=== PATIENT | female | born 1950 | race Caucasian/White ===

== ENCOUNTER 2017-10-13 12:06 | Inpatient (IN) ==
[2017-10-13] MEDS ORDERED: MethylPREDNISolone Sod Succinate Inj 125 MG/2 ML Vial IV.PUSH ONE (12:37)
--- NOTE | 2017-10-13 12:43 | ED ---
HPI General Chief Complaint: Respiratory Symptoms Stated Complaint: Fall Time Seen by Provider: 10/13/17 12:31 Source: patient and family Mode of arrival: ambulatory Limitations: no limitations History of Present Illness HPI Narrative: 67-year-old presents emergency department for evaluation of right -sided chest pain and shortness of breath that started after fall approximately 1 week ago. Patient denies any medical problems to include cardiac or pulmonary issues. She occasionally uses an inhaler for shortness of breath but has not used this medication regularly. Friend states that patient has had difficulty breathing for approximately 1 year but has had no COPD or other diagnosis. Patient says the chest pain is located in the right anterior chest that is nonradiating, worse with coughing and deep breaths, sharp and rated 10/10 with exacerbation. No palliative factors. She denies head, neck, back, leg, abdominal pain. Denies head trauma. Denies fevers or chills. She has a heavy tobacco use history. She drinks ETOH but unable to quantify. Related Data Home Medications Medication Instructions Recorded Confirmed No Known Home Medications 10/13/17 10/13/17 Allergies Allergy/AdvReac Type Severity Reaction Status Date / Time No Known Allergies Allergy Unverified 10/13/17 17:40 Review of Systems Except as stated in HPI: all other systems reviewed are negative Exam Narrative Exam Narrative: GENERAL: Well-developed well-nourished mild respiratory distress SKIN: Focused skin assessment warm/dry. HEAD: Atraumatic. Normocephalic. EYES: Pupils equal and round. No scleral icterus. No injection or drainage. ENT: No nasal bleeding or discharge. Mucous membranes pink and on the dry side , white patches on tongue. NECK: Trachea midline. No JVD. CARDIOVASCULAR: Regular rate and rhythm. No murmur appreciated. RESPIRATORY: Mild accessory muscle use. Diffuse rhonchi. Breath sounds equal bilaterally. GASTROINTESTINAL: Abdomen soft, non-tender, nondistended. Hepatic and splenic margins not palpable. MUSCULOSKELETAL: No obvious deformities. No clubbing. No cyanosis. No edema. TTP to right chest wall, 5-6cm ecchymosis to R midsternal chest wall with associated TTP. No flail segment noted. NEUROLOGICAL: Awake and alert. No obvious cranial nerve deficits. Motor grossly within normal limits. Normal speech. PSYCHIATRIC: Appropriate mood and affect; Course Initial Documented Vital Signs Temperature 98.2 F 10/13/17 12:14 Respiratory Rate 20 10/13/17 12:14 Blood Pressure 127/66 10/13/17 12:14 Pulse Oximetry 93 L 10/13/17 12:14 Last Documented Vital Signs Temperature 98.3 F 10/13/17 20:54 Pulse Rate 101 H 10/13/17 20:54 Respiratory Rate 19 10/13/17 20:54 Blood Pressure 111/57 L 10/13/17 20:54 Pulse Oximetry 97 10/13/17 20:54 Medical Decision Making MDM Narrative Medical decision making narrative: 67y female presents to the ED with right anterior chest pain and worsening shortness of breath for 1 week. Says she fell 1 week ago and has had increased SOB since then. Says her chest pain is located in the area that she fell. Pt is tachypneic and tachycardic at 102. EKG shows sinus tachycardia without STEMI changes. Duoneb x2 administered with subjective improvement in symptoms. Solumedrol 125mg IV. Morphine for her chest pain, monitored respiratory function closely. CT demonstrates old rib fractures but based off of H&P I suspect a more acute process from a fall week ago. Will treat for pneumonia, as suggested by CT. Rocephin and azithromycin. She remains on 2LPM NC while in the ED for Goal SaO2 95% I am unsure if her hyponatremia is chronic but suspect this is chronic based off the patient's alcohol history. Patient denies alcohol use today but smells of alcohol in the emergency department. I do not have previous records available but she denies chronic medical problems. I recommend patient be admitted for pneumonia with hypoxia, UTI, electrolyte abnormalities. Differential Diagnosis Differential Diagnosis: pneumonia, chest wall contusion, pulmonary contusion, COPD exacerbation Lab Data Result diagrams: 10/13/17 12:45 10/13/17 12:45 Lab Results 10/13/17 10/13/17 10/13/17 Range/Units 12:45 12:45 12:45 WBC 9.4 (4.0-11.0) th/mm3 RBC 4.05 (4.00-5.30) mil/mm3 Hgb 13.4 (11.6-15.3) gm/dL Hct 39.0 (35.0-46.0) % MCV 96.3 (80.0-100.0) fL MCH 33.0 (27.0-34.0) pg MCHC 34.3 (32.0-36.0) % RDW 15.6 (11.6-17.2) % Plt Count 471 H (150-450) th/mm3 MPV 6.8 L (7.0-11.0) fL Neut % (Auto) 66.8 (16.0-70.0) % Lymph % (Auto) 16.8 (9.0-44.0) % [place] % (Auto) 14.6 H (0.0-8.0) % Eos % (Auto) 1.1 (0.0-4.0) % Baso % (Auto) 0.7 (0.0-2.0) % Neut # (Auto) 6.3 (1.8-7.7) th/mm3 Lymph # (Auto) 1.6 (1.0-4.8) th/mm3 [place] # (Auto) 1.4 H (0.0-0.9) th/mm3 Eos # (Auto) 0.1 (0.0-0.4) th/mm3 Baso # (Auto) 0.1 (0.0-0.2) th/mm3 WBC Differential . Differential Comment Auto diff final PT 10.4 (9.8-11.6) sec INR 1.0 Ratio APTT 31.0 H (24.3-30.1) sec Sodium 126 L (136-145) meq/L Potassium 3.3 L (3.5-5.1) meq/L Chloride 85 L (98-107) meq/L Carbon Dioxide 30.6 (21.0-32.0) meq/L Anion Gap 10 (5-15) meq/L BUN 3 L (7-18) mg/dL Creatinine 0.57 (0.50-1.00) mg/dL Estimated GFR Greater than 89 (>89) mL/min Random Glucose 91 (74-106) mg/dL Lactic Acid (0.4-2.0) mmol/L Calcium 9.3 (8.5-10.1) mg/dL Magnesium 2.2 (1.5-2.5) mg/dL Total Bilirubin 0.5 (0.2-1.0) mg/dL AST 36 (15-37) U/L ALT 27 (10-53) U/L Alkaline Phosphatase 120 H (45-117) U/L Troponin I Less than 0.02 L (0.02-0.05) ng/mL Total Protein 7.1 (6.4-8.2) g/dL Albumin 2.6 L (3.4-5.0) g/dL Urine Color (Yellw/Straw) Urine Clarity (Clear) Urine pH (5.0-8.5) Ur Specific [place] (1.002-1.035) Urine Protein (Neg-Trace) mg/dL Urine Glucose (UA) (Negative) mg/dL Urine Ketones (Negative) mg/dL Urine Occult Blood (Negative) Urine Nitrate (Negative) Urine Bilirubin (Negative) Urine Urobilinogen (Less than 2) mg/dL Ur Leukocyte Esterase (Negative) Urine RBC (0-3) /hpf Urine WBC (0-5) /hpf Urine WBC Clumps (None) Ur Squamous Epith Cells (0-5) /hpf Urine Bacteria (None) /hpf Micro UA Comment Urine Culture Comments 10/13/17 10/13/17 Range/Units 13:15 14:26 WBC (4.0-11.0) th/mm3 RBC (4.00-5.30) mil/mm3 Hgb (11.6-15.3) gm/dL Hct (35.0-46.0) % MCV (80.0-100.0) fL MCH (27.0-34.0) pg MCHC (32.0-36.0) % RDW (11.6-17.2) % Plt Count (150-450) th/mm3 MPV (7.0-11.0) fL Neut % (Auto) (16.0-70.0) % Lymph % (Auto) (9.0-44.0) % [place] % (Auto) (0.0-8.0) % Eos % (Auto) (0.0-4.0) % Baso % (Auto) (0.0-2.0) % Neut # (Auto) (1.8-7.7) th/mm3 Lymph # (Auto) (1.0-4.8) th/mm3 [place] # (Auto) (0.0-0.9) th/mm3 Eos # (Auto) (0.0-0.4) th/mm3 Baso # (Auto) (0.0-0.2) th/mm3 WBC Differential Differential Comment PT (9.8-11.6) sec INR Ratio APTT (24.3-30.1) sec Sodium (136-145) meq/L Potassium (3.5-5.1) meq/L Chloride (98-107) meq/L Carbon Dioxide (21.0-32.0) meq/L Anion Gap (5-15) meq/L BUN (7-18) mg/dL Creatinine (0.50-1.00) mg/dL Estimated GFR (>89) mL/min Random Glucose (74-106) mg/dL Lactic Acid 1.3 (0.4-2.0) mmol/L Calcium (8.5-10.1) mg/dL Magnesium (1.5-2.5) mg/dL Total Bilirubin (0.2-1.0) mg/dL AST (15-37) U/L ALT (10-53) U/L Alkaline Phosphatase (45-117) U/L Troponin I (0.02-0.05) ng/mL Total Protein (6.4-8.2) g/dL Albumin (3.4-5.0) g/dL Urine Color Yellow (Yellw/Straw) Urine Clarity Hazy H (Clear) Urine pH 6.0 (5.0-8.5) Ur Specific [place] 1.003 (1.002-1.035) Urine Protein Negative (Neg-Trace) mg/dL Urine Glucose (UA) Negative (Negative) mg/dL Urine Ketones Negative (Negative) mg/dL Urine Occult Blood Negative (Negative) Urine Nitrate Negative (Negative) Urine Bilirubin Negative (Negative) Urine Urobilinogen 2.0 H (Less than 2) mg/dL Ur Leukocyte Esterase Moderate H (Negative) Urine RBC 2 (0-3) /hpf Urine WBC 11 H (0-5) /hpf Urine WBC Clumps Few H (None) Ur Squamous Epith Cells 2 (0-5) /hpf Urine Bacteria Occasional H (None) /hpf Micro UA Comment Culture indicated Urine Culture Comments Culture indicated Imaging Data Radiologist's impression: Chest X-Ray 10/13/17 12:37 CONCLUSION: 1. Minimal, asymmetric interstitial prominence in the right chest could represent some asymmetric vascular congestion or volume overload. 2. No confluent infiltrate, pneumothorax or effusion. Chest CT 10/13/17 13:43 CONCLUSION: Parenchymal infiltrates mainly in the right lung probably inflammatory and possibility of atypical pneumonia should be entertained. ECG Data Interpretation: EKG Rate 106, regular, no STEMI changes. No previous EKGs for comparison that I can find in the chart. Discharge Plan Discharge Disposition Patient Disposition: 30 Still Patient Discharge Condition Condition: Stable Discharge Details Diagnosis: Pneumonia, Chest wall contusion, Acute UTI, Fracture of rib, Hypoxia Physicians Team ED Provider: Ilia Mueller ED Midlevel Provider: Dianna Chavez Primary Care Provider: Primary Care Jemma Mota Attending Provider: Luz Pacheco Status ED Status: Left Department Discharge Information Discharge Date/Time: 10/13/17 19:48 [facility] Medical History Medical History Breathing problem (Acute) HTN (hypertension) (Acute) High cholesterol (Acute) Surgical History Surgical History H/O tubal ligation (Acute) Social History Social History Substance History: No History of Abuse Second Hand Smoke Exposure: Yes Smoking Status: Current every day smoker Tobacco Type: Cigarettes How Often Do You Have a Drink Containing Alcohol: Monthly or less Recent Travel in [facility] within the Last 8 Weeks: No Recent Out of Country Travel within the Last 8 Weeks: No
[2017-10-13 13:19] LABS: Baso # (Auto) 0.1 th/mm3 (0.0-0.2); Baso % (Auto) 0.7 % (0.0-2.0); Eos # (Auto) 0.1 th/mm3 (0.0-0.4); Eos % (Auto) 1.1 % (0.0-4.0); Hemoglobin 13.4 gm/dL (11.6-15.3); Lymph # (Auto) 1.6 th/mm3 (1.0-4.8); Lymph % (Auto) 16.8 % (9.0-44.0); Mean Corpuscular HGB Conc 34.3 % (32.0-36.0); Mean Corpuscular Volume 96.3 fL (80.0-100.0); Mean Platelet Volume 6.8 fL (7.0-11.0); Mono # (Auto) 1.4 th/mm3 (0.0-0.9); Mono % (Auto) 14.6 % (0.0-8.0); Neut # (Auto) 6.3 th/mm3 (1.8-7.7); Neut % (Auto) 66.8 % (16.0-70.0); Platelet Count 471 th/mm3 (150-450); Red Blood Count 4.05 mil/mm3 (4.00-5.30); Red Cell Distribution Width 15.6 % (11.6-17.2); White Blood Count 9.4 th/mm3 (4.0-11.0)
[2017-10-13 13:26] LABS: Prothrombin Time 10.4 sec (9.8-11.6)
--- NOTE | 2017-10-13 13:28 | XR ---
EXAM DATE: 10/13/2017 1:11 PM EDT AGE/SEX: 67 years / Female INDICATIONS: Right anterior chest pain from fall and shortness of breath. CLINICAL DATA: This is the patient's initial encounter. Patient reports that signs and symptoms have been present for 1 day and indicates a pain score of 5/10. MEDICAL/SURGICAL HISTORY: Hypertension. None. COMPARISON: No prior exams available for comparison. FINDINGS: A single AP view of the chest demonstrates the lungs to be symmetrically aerated with some mild, asym metric interstitial prominence in the right chest. Otherwise, no confluent infiltrate. Heart size is normal. Osseous structures are intact CONCLUSION: 1. Minimal, asymmetric interstitial prominence in the right chest could represent some asymmetric va scular congestion or volume overload. 2. No confluent infiltrate, pneumothorax or effusion. Electronically signed by: Hayden Aguirre MD 10/13/2017 1:27 PM EDT
[2017-10-13] MEDS ORDERED: Morphine Sulfate Inj 2 MG/ML Vial IV.PUSH ONE (13:37)
[2017-10-13 13:39] LABS: Bacteria,Urine Occasional /hpf; Bilirubin,Urine Negative (Negative); Clarity,Urine Hazy (Clear); Color,Urine Yellow (Yellw/Straw); Glucose,Urine (UA) Negative (Negative); Leukocyte Esterase,Urine Moderate (Negative); Nitrite,Urine Negative (Negative); Specific Gravity,Urine 1.003 (1.002-1.035); Squamous Epithelial Cell,Urine 2 /hpf (0-5)
[2017-10-13 13:39] LABS: Alanine Aminotransferase 27 U/L (10-53); Albumin 2.6 g/dL (3.4-5.0); Anion Gap 10 meq/L (5-15); Aspartate Aminotransferase 36 U/L (15-37); Blood Urea Nitrogen 3 mg/dL (7-18); Calcium 9.3 mg/dL (8.5-10.1); Carbon Dioxide 30.6 meq/L (21.0-32.0); Chloride 85 meq/L (98-107); Glomerular Filtration Rate Greater Than 89 mL/min (>89); Glucose,Random 91 mg/dL (74-106); Magnesium 2.2 mg/dL (1.5-2.5); Potassium 3.3 meq/L (3.5-5.1); Sodium 126 meq/L (136-145)
[2017-10-13 13:43] LABS: Alkaline Phosphatase 120 U/L (45-117); Total Protein 7.1 g/dL (6.4-8.2)
--- NOTE | 2017-10-13 16:01 | CT ---
EXAM DATE: 10/13/2017 3:17 PM EDT AGE/SEX: 67 years / Female INDICATIONS: Short of breath, pain when coughing. CLINICAL DATA: This is the patient's initial encounter. Patient reports that signs and symptoms have been present for 1 week and indicates a pain score of 4/10. MEDICAL/SURGICAL HISTORY: Hypertension. Tubal ligation. RADIATION DOSE: 6.22 CTDI (mGy) COMPARISON: No prior exams available for comparison. TECHNIQUE: Multiple contiguous axial images were obtained through the chest during bolus infusion of 70 ml Omnipaque 350 (iohexol) nonionic water-soluble contrast as a single exam dose. Images were obtained in suspended respiration using multiple row detector helical technique. Using automated exp osure control and adjustment of the mA and/or kV according to patient size, radiation dose was kept a s low as reasonably achievable to obtain optimal diagnostic quality images. DICOM format image data is available electronically for review and comparison. FINDINGS: Patchy parenchymal infiltrates are present in the right upper lobe, right middle lobe and parts of th e right lower lobe with minimal infiltrate in left upper lobe. Findings are most likely inflammatory. Focal consolidation however is not seen. There is no pleural effusion. No appreciable pathological adenopathy is seen within the mediastinum. There are small benign-appearing lymph nodes within the me diastinum. There are old fractures of the right anterior third, fourth and fifth ribs. Coronary arter y calcifications are seen typically seen with coronary artery disease and clinical correlation and ev aluation is suggested. Almost 8mm calcification is present involving the posterior portion of the noe er probably a granuloma. CONCLUSION: Parenchymal infiltrates mainly in the right lung probably inflammatory and possibility o f atypical pneumonia should be entertained. Electronically signed by: Andrea Gamble MD 10/13/2017 4:00 PM EDT
[2017-10-13] MEDS ORDERED: Azithromycin Inj 500 MG in Sodium Chlor 0.9% Inj 250 ML IV.SIG ONE (16:08)
[2017-10-13] MEDS ORDERED: Temazepam 15 MG Capsule PO PRN (18:02)
[2017-10-13] MEDS ORDERED: Acetaminophen 325 MG Tablet PO PRN (18:02)
[2017-10-13] MEDS ORDERED: Bisacodyl 10 MG Supp RECTAL PRN (18:02)
--- NOTE | 2017-10-13 19:07 | P.HPIM ---
History of Present Illness Primary Care Physician: No Primary Care Physician History of Present Illness: This is a 67-year-old female with a PMH of HTN and Hyperlipidemia who presented to ER with complaints of SOB x1 wk. States symptoms starting shortly after a fall, denies head trauma or LOC. No chest pain, fever or chills, but reports non-productive wet cough. On arrival, BP 133/99, HR 103, O2 sat 91% on 2L NC, Afebrile. CBC essentially unremarkable. Na 126, K+ 3.3. Lactic Acid normal. Troponin negative. INR 1.1. UA positive for UTI. CXR with asymmetrical interstitial prominence right chest possibly congestion or overload. CT Chest with parenchymal infiltrates right lung probably inflammatory or atypical pneumonia. S/p Rocephin/Zithro in ER - Diagnosis (1) Fall (2) Hyponatremia (3) UTI (urinary tract infection) (4) PNA (pneumonia) (5) SIRS (systemic inflammatory response syndrome) Inpatient Certification: I certify that the inpatient services were ordered in accordance with Medicare regulations governing the order. This includes certification that hospital inpatient services are reasonable and necessary and in the case of services not specified as inpatient-only under 42 CFR 419.22(n), that they are appropriately provided as inpatient services in accordance to with the 2-midnight benchmark under 43 CFR 412.3(e) Estimated Total Length of Stay (Days): 2 Plans for Post Hospital Care: Not yet determined Review of Systems All other systems reviewed negative except as stated in HPI PMFSH - History History Provided By: Patient, Family Member - Medical History Medical History: Medical History (Last Updated 10/13/17 @ 13:01 by [employer]) Breathing problem HTN (hypertension) High cholesterol - Surgical History Surgical History: Surgical History (Last Updated 10/13/17 @ 13:01 by [employer]) H/O tubal ligation - Tobacco History Second Hand Smoke Exposure: Yes Tobacco Use In Past 30 Days: Yes Smoking Status: Current every day smoker Tobacco Type: Cigarettes - Alcohol History How Often Do You Have a Drink Containing Alcohol: Monthly or less - Substance Use History Substance History: No History of Abuse - Travel History Recent Travel in the [place] Within the Last 8 Weeks: No Recent Travel Out of the Country Within the Last 8 Weeks: No - Immunization History Tetanus Immunization: Never Vaccinated Hx Influenza Vaccine This Season: No Medications and Allergies Active Medications: Active Medications Acetaminophen (Tylenol) 650 mg PO Q4H PRN PRN Reason: Temp > 100.4 Al Hydroxide/Mg Hydroxide (Milk Of Magnesia Liq) 30 ml PO Q12H PRN PRN Reason: Mild Constipation Albuterol (Duoneb Neb (Prn)) 1 ampul NEB Q15M PRN PRN Reason: SHORTNESS OF BREATH Albuterol (Duoneb Neb (Prn)) 1 ampul NEB Q4HR NEB PRN PRN Reason: SOB/WHEEZING Bisacodyl (Dulcolax Supp) 10 mg RECTAL DAILY PRN PRN Reason: SEVERE CONSITIPATION Enoxaparin Sodium (Lovenox Inj) 30 mg SQ Q24H NIR Sodium Chloride (Ns Inj) 1,000 mls @ 100 mls/hr IV.CONT .Q10H NIR Stop: 10/14/17 14:14 Azithromycin 500 mg/ Sodium (Chloride) 250 mls @ 250 mls/hr IV.SIG Q24H NIR Ceftriaxone Sodium 1,000 mg/ (Sodium Chloride) 100 mls @ 200 mls/hr IV.SIG Q24H NIR Lactulose (Lactulose Liq) 30 ml PO DAILY PRN PRN Reason: SEVERE CONSITIPATION Potassium Bicarb/Potassium Chloride (K-Lyte Cl Eff) 50 meq PO ONCE ONE Stop: 10/13/17 18:02 Sennosides (Senokot) 17.2 mg PO Q12H PRN PRN Reason: Moderate Constipation Temazepam (Restoril) 15 mg PO HS PRN PRN Reason: INSOMNIA Allergies Allergy/AdvReac Type Severity Reaction Status Date / Time No Known Allergies Allergy Unverified 10/13/17 17:40 Home Medications Medication Instructions Recorded Confirmed Type No Known Home Medications 10/13/17 10/13/17 History Exam Vital signs: Vital Signs 10/13/17 12:14 10/13/17 12:42 10/13/17 13:00 Temperature 98.2 F Pulse Rate 103 H 108 H Respiratory Rate 20 19 29 H Blood Pressure 127/66 133/99 H 149/80 H Pulse Oximetry 93 L 92 L 95 10/13/17 13:37 10/13/17 14:00 10/13/17 14:36 Temperature Pulse Rate 109 H Respiratory Rate 20 Blood Pressure 144/76 H Pulse Oximetry 97 95 10/13/17 14:55 07/20/18 15:00 10/13/17 16:00 Temperature Pulse Rate 117 H 102 H 120 H Respiratory Rate 28 H 29 H 28 H Blood Pressure 144/74 H 138/72 Pulse Oximetry 93 L 95 10/13/17 16:16 Temperature Pulse Rate Respiratory Rate 18 Blood Pressure Pulse Oximetry Intake & Output 10/13/17 10/13/17 10/14/17 06:59 18:59 06:59 Weight 84.822 kg Narrative: PE: GENERAL: Middle-aged white female in no acute distress. Intermittent cough. HEENT: PERRLA, EOMI. No scleral icterus or conjunctival pallor. No lid lag or facial droop. CARDIOVASCULAR: Regular rate and rhythm. No obvious murmurs to auscultation. No chest tenderness to palpation. RESPIRATORY: No obvious rhonchi or wheezing. Clear to auscultation. Breath sounds equal bilaterally. GASTROINTESTINAL: Abdomen soft, non-tender, nondistended. BS normal. MUSCULOSKELETAL: Extremities without clubbing, cyanosis, or edema. No obvious deformities. NEUROLOGICAL: Awake, alert and oriented x4. No focal neurologic deficits. Moving both upper and lower extremities spontaneously. Results - Labs CBC & Chem 7: 10/13/17 12:45 10/13/17 12:45 Labs: Short CBC 10/13/17 Range/Units 12:45 WBC 9.4 (4.0-11.0) th/mm3 Hgb 13.4 (11.6-15.3) gm/dL Hct 39.0 (35.0-46.0) % Plt Count 471 H (150-450) th/mm3 BMP 10/13/17 12:45 Sodium 126 L Potassium 3.3 L Chloride 85 L Carbon Dioxide 30.6 BUN 3 L Creatinine 0.57 Calcium 9.3 Cardiac Enzymes 10/13/17 Range/Units 12:45 Troponin I Less than 0.02 L (0.02-0.05) ng/mL Liver Function 10/13/17 Range/Units 12:45 Total Bilirubin 0.5 (0.2-1.0) mg/dL AST 36 (15-37) U/L ALT 27 (10-53) U/L Alkaline Phosphatase 120 H (45-117) U/L Albumin 2.6 L (3.4-5.0) g/dL Urine 10/13/17 Range/Units 13:15 Urine Color Yellow (Yellw/Straw) Urine Clarity Hazy H (Clear) Urine pH 6.0 (5.0-8.5) Ur Specific [place] 1.003 (1.002-1.035) Urine Protein Negative (Neg-Trace) mg/dL Urine Glucose (UA) Negative (Negative) mg/dL - Imaging Impressions Chest X-Ray 10/13/17 12:37 CONCLUSION: 1. Minimal, asymmetric interstitial prominence in the right chest could represent some asymmetric vascular congestion or volume overload. 2. No confluent infiltrate, pneumothorax or effusion. Chest CT 10/13/17 13:43 CONCLUSION: Parenchymal infiltrates mainly in the right lung probably inflammatory and possibility of atypical pneumonia should be entertained. Caprini VTE Risk Assessment Caprini VTE Risk Assessment: No/Low Risk (score <= 1) Caprini Risk Assessment Model: Point Value = 1 Point Value = 2 Point Value = 3 Point Value = 5 Age 41-60 Minor surgery BMI > 25 kg/m2 Swollen legs Varicose veins or History of unexplained or recurrent spontaneous Oral contraceptives or hormone replacement Sepsis (< 1 month) Serious lung disease, including pneumonia (< 1 month) Abnormal pulmonary function Acute myocardial infarction Congestive heart failure (< 1 month) History of inflammatory bowel disease Medical patient at bed rest Age 61-74 Arthroscopic surgery Major open surgery (> 45 min) Laparoscopic surgery (> 45 min) Malignancy Confined to bed (> 72 hours) Immobilizing plaster cast Central venous access Age >= 75 History of VTE Family history of VTE Factor V Leiden Prothrombin [id number] Lupus anticoagulant Anticardiolipin antibodies Elevated serum homocysteine Heparin-induced thrombocytopenia Other congenital or acquired thrombophilia Stroke (< 1 month) Elective arthroplasty Hip, pelvis, or leg fracture Acute spinal cord injury (< 1 month) Prophylaxis Regimen: Total Risk Factor Score Risk Level Prophylaxis Regimen 0-1 Low Early ambulation 2 Moderate Order ONE of the following: *Sequential Compression Device (SCD) *Heparin 5000 units SQ BID 3-4 Higher Order ONE of the following medications: *Heparin 5000 units SQ TID *Enoxaparin/Lovenox 40 mg SQ daily (WT < 150 kg, CrCl > 30 mL/min) *Enoxaparin/Lovenox 30 mg SQ daily (WT < 150 kg, CrCl > 10-29 mL/min) *Enoxaparin/Lovenox 30 mg SQ BID (WT < 150 kg, CrCl > 30 mL/min) AND/OR *Sequential Compression Device (SCD) 5 or more Highest Order ONE of the following medications: *Heparin 5000 units SQ TID (Preferred with Epidurals) *Enoxaparin/Lovenox 40 mg SQ daily (WT < 150 kg, CrCl > 30 mL/min) *Enoxaparin/Lovenox 30 mg SQ daily (WT < 150 kg, CrCl > 10-29 mL/min) *Enoxaparin/Lovenox 30 mg SQ BID (WT < 150 kg, CrCl > 30 mL/min) AND *Sequential Compression Device (SCD) Assessment and Plan - Assessment (1) Fall Code(s): W19.XXXA - Unspecified fall, initial encounter Status: Acute (2) Hyponatremia Code(s): E87.1 - Hypo-osmolality and hyponatremia Status: Acute (3) UTI (urinary tract infection) Code(s): N39.0 - Urinary tract infection, site not specified Status: Acute (4) PNA (pneumonia) Code(s): J18.9 - Pneumonia, unspecified organism Status: Acute (5) SIRS (systemic inflammatory response syndrome) Code(s): R65.10 - Systemic inflammatory response syndrome (SIRS) of non- infectious origin without acute organ dysfunction Status: Acute - Plan A/P: 1. Fall: s/p mechanical fall 1wk ago, no head trauma or LOC reported, CT Chest w/ old right 3rd, 4th and 5th ribs fractures, no acute injury, images reviewed. PT for eval/tx, Case Management for possible placement. 2. PNA: CT Chest w/ parenchymal infiltrates right lung, s/p Rocephin/Zithro in ER, continue w/ IV Abx, DuoNeb prn, Mucinex. 3. UTI: U/a w/ UTI, follow up cultures, continue IV Abx, IVF for hydration, monitor I/O. 4. SIRS: HR 110's, RR 28, Source-UTI/PNA, follow up cultures as above, continue w/ IV Abx, telemetry. 5. Hyponatremia: Na 126, likely secondary to SIRS/dehydration/acute infection , IVF, monitor I/O, repeat labs in am. 6. DVT Prophylaxis: SCD/Teds 7. Social work for d/c planning as needed 8. Case discussed w/ day physician, labs/records/imaging reviewed by me.
[2017-10-13] MEDS: Sod Chloride 0.9% Inj 1,000 ML IV.CONT SCH (19:40)
[2017-10-13] MEDS ORDERED: Potassium Chloride 25 MEQ Effervescent Tablet PO ONE (20:00)
[2017-10-13] MEDS: Enoxaparin Inj 30 MG/0.3 ML Syringe SQ SCH (22:06)
[2017-10-13] MEDS: guaiFENesin 600 MG ER Tablet PO SCH (22:06)
[2017-10-14] MEDS: Morphine Inj 4 MG/ML Vial IV.PUSH PRN ×2 (01:25→20:20)
[2017-10-14] MEDS: guaiFENesin/Codeine Syrup 200 MG/20 MG 10 ML UDC PO PRN ×4 (04:03→21:33)
[2017-10-14] MEDS: Sod Chloride 0.9% Inj 1,000 ML IV.CONT SCH (07:48)
[2017-10-14 07:58] LABS: Baso % (Auto) 0.2 % (0.0-2.0); Hematocrit 34.6 % (35.0-46.0); Hemoglobin 11.7 gm/dL (11.6-15.3); Lymph # (Auto) 0.5 th/mm3 (1.0-4.8); Lymph % (Auto) 7.1 % (9.0-44.0); Mean Corpuscular HGB Conc 33.7 % (32.0-36.0); Mean Corpuscular Hemoglobin 32.4 pg (27.0-34.0); Mean Corpuscular Volume 96.1 fL (80.0-100.0); Mono # (Auto) 0.5 th/mm3 (0.0-0.9); Mono % (Auto) 7.8 % (0.0-8.0); Neut # (Auto) 5.5 th/mm3 (1.8-7.7); Neut % (Auto) 84.9 % (16.0-70.0); Platelet Count 447 th/mm3 (150-450); Red Cell Distribution Width 15.3 % (11.6-17.2); White Blood Count 6.5 th/mm3 (4.0-11.0)
[2017-10-14 08:27] LABS: Anion Gap 8 meq/L (5-15); Blood Urea Nitrogen 9 mg/dL (7-18); Calcium 8.7 mg/dL (8.5-10.1); Carbon Dioxide 29.8 meq/L (21.0-32.0); Chloride 95 meq/L (98-107); Glomerular Filtration Rate Greater Than 89 mL/min (>89); Glucose,Random 185 mg/dL (74-106); Potassium 4.3 meq/L (3.5-5.1); Sodium 133 meq/L (136-145)
[2017-10-14] MEDS: guaiFENesin 600 MG ER Tablet PO SCH ×2 (08:31→20:22)
--- NOTE | 2017-10-14 12:34 | P.PNIM ---
Subjective Interval history: This is a 67-year-old female with a PMH of HTN and Hyperlipidemia who presented to ER with complaints of SOB x1 wk. States symptoms starting shortly after a fall, denies head trauma or LOC. No chest pain, fever or chills, but reports non-productive wet cough. On arrival, BP 133/99, HR 103, O2 sat 91% on 2L NC, Afebrile. CBC essentially unremarkable. Na 126, K+ 3.3. Lactic Acid normal. Troponin negative. INR 1.1. UA positive for UTI. CXR with asymmetrical interstitial prominence right chest possibly congestion or overload. CT Chest with parenchymal infiltrates right lung probably inflammatory or atypical pneumonia. S/p Rocephin/Zithro in ER 7- PATIENT STATES SHE STILL HAS PAIN ON THE RIGHT TAKING PAIN MEDS AND MEDS FOR COUGH SUPPRESSANT NEEDS IS AND MUCINEX DW RN AND PT AND CM AM LABS Physical Exam Vital signs: Vital Signs 10/13/17 12:42 10/13/17 13:00 10/13/17 13:37 Temperature Pulse Rate 103 H 108 H Respiratory Rate 19 29 H Blood Pressure 133/99 H 149/80 H Pulse Oximetry 92 L 95 97 10/13/17 14:00 10/13/17 14:36 10/13/17 14:55 Temperature Pulse Rate 109 H 117 H Respiratory Rate 20 28 H Blood Pressure 144/76 H Pulse Oximetry 95 10/13/17 15:00 10/13/17 16:00 10/13/17 16:16 Temperature Pulse Rate 102 H 120 H Respiratory Rate 29 H 28 H 18 Blood Pressure 144/74 H 138/72 Pulse Oximetry 93 L 95 10/13/17 19:15 10/13/17 20:15 10/13/17 20:54 Temperature 98.3 F Pulse Rate 105 H 101 H Respiratory Rate 20 22 19 Blood Pressure 132/76 111/57 L Pulse Oximetry 96 97 10/14/17 00:00 10/14/17 02:23 10/14/17 02:24 Temperature 97.2 F L Pulse Rate 90 108 H Respiratory Rate 19 22 Blood Pressure 136/65 Pulse Oximetry 91 L 97 10/14/17 03:00 10/14/17 08:00 Temperature 97.7 F 97.5 F L Pulse Rate 95 H 88 Respiratory Rate 19 17 Blood Pressure 126/75 111/58 L Pulse Oximetry 92 L 96 Intake & Output 10/13/17 10/14/17 10/14/17 18:59 06:59 18:59 Intake Total 1480 / 1480 Balance 1480 / 1480 Weight 84.822 kg 62.14 kg Intake: IV 1000 / 1000 NS Inj 1,000 ML @ 100 mls/hr IV 1000 / 1000 .CONT .Q10H NIR Rx#:[id number] Oral 480 / 480 Other: # Voids 6 Date of Last Bowel Movement 10/13/17 # Bowel Movements 2 Weight On Admission 62.142 kg Narrative: Talkative and cooperative GENERAL: Middle-aged white female in no acute distress. Intermittent cough. HEENT: PERRLA, EOMI. No scleral icterus or conjunctival pallor. No lid lag or facial droop. Tongue is midline Neck is supple there is no JVD or thyromegaly CARDIOVASCULAR: Regular rate and rhythm. No obvious murmurs to auscultation. No chest tenderness to palpation. S1-S2 no S3 or S4 RESPIRATORY: No obvious rhonchi or wheezing. Clear to auscultation. Breath sounds equal bilaterally. GASTROINTESTINAL: Abdomen soft, non-tender, nondistended. BS normal. Obese MUSCULOSKELETAL: Extremities without clubbing, cyanosis, or edema. No obvious deformities. NEUROLOGICAL: Awake, alert and oriented x4. No focal neurologic deficits. Moving both upper and lower extremities spontaneously. Results - Labs CBC & Chem 7: 10/14/17 07:10 10/14/17 07:10 Laboratory Results - last 24 hr 10/13/17 10/13/17 10/13/17 12:45 12:45 12:45 WBC 9.4 RBC 4.05 Hgb 13.4 Hct 39.0 MCV 96.3 MCH 33.0 MCHC 34.3 RDW 15.6 Plt Count 471 H MPV 6.8 L Neut % (Auto) 66.8 Lymph % (Auto) 16.8 [place] % (Auto) 14.6 H Eos % (Auto) 1.1 Baso % (Auto) 0.7 Neut # (Auto) 6.3 Lymph # (Auto) 1.6 [place] # (Auto) 1.4 H Eos # (Auto) 0.1 Baso # (Auto) 0.1 WBC Differential . Differential Comment Auto diff final PT 10.4 INR 1.0 APTT 31.0 H Sodium 126 L Potassium 3.3 L Chloride 85 L Carbon Dioxide 30.6 Anion Gap 10 BUN 3 L Creatinine 0.57 Estimated GFR Greater than 89 Random Glucose 91 Lactic Acid Calcium 9.3 Magnesium 2.2 Total Bilirubin 0.5 AST 36 ALT 27 Alkaline Phosphatase 120 H Troponin I Less than 0.02 L Total Protein 7.1 Albumin 2.6 L Urine Color Urine Clarity Urine pH Ur Specific [place] Urine Protein Urine Glucose (UA) Urine Ketones Urine Occult Blood Urine Nitrate Urine Bilirubin Urine Urobilinogen Ur Leukocyte Esterase Urine RBC Urine WBC Urine WBC Clumps Ur Squamous Epith Cells Urine Bacteria Micro UA Comment Urine Culture Comments Stl C.difficile Tox PCR St C. diff Tox Epid 027 10/13/17 10/13/17 10/13/17 13:15 14:26 23:30 WBC RBC Hgb Hct MCV MCH MCHC RDW Plt Count MPV Neut % (Auto) Lymph % (Auto) [place] % (Auto) Eos % (Auto) Baso % (Auto) Neut # (Auto) Lymph # (Auto) [place] # (Auto) Eos # (Auto) Baso # (Auto) WBC Differential Differential Comment PT INR APTT Sodium Potassium Chloride Carbon Dioxide Anion Gap BUN Creatinine Estimated GFR Random Glucose Lactic Acid 1.3 Calcium Magnesium Total Bilirubin AST ALT Alkaline Phosphatase Troponin I Total Protein Albumin Urine Color Yellow Urine Clarity Hazy H Urine pH 6.0 Ur Specific [place] 1.003 Urine Protein Negative Urine Glucose (UA) Negative Urine Ketones Negative Urine Occult Blood Negative Urine Nitrate Negative Urine Bilirubin Negative Urine Urobilinogen 2.0 H Ur Leukocyte Esterase Moderate H Urine RBC 2 Urine WBC 11 H Urine WBC Clumps Few H Ur Squamous Epith Cells 2 Urine Bacteria Occasional H Micro UA Comment Culture indicated Urine Culture Comments Culture indicated Stl C.difficile Tox PCR Negative St C. diff Tox Epid 027 Negative 10/14/17 10/14/17 07:10 07:10 WBC 6.5 RBC 3.60 L Hgb 11.7 Hct 34.6 L MCV 96.1 MCH 32.4 MCHC 33.7 RDW 15.3 Plt Count 447 MPV 7.0 Neut % (Auto) 84.9 H Lymph % (Auto) 7.1 L [place] % (Auto) 7.8 Eos % (Auto) 0.0 Baso % (Auto) 0.2 Neut # (Auto) 5.5 Lymph # (Auto) 0.5 L [place] # (Auto) 0.5 Eos # (Auto) 0.0 Baso # (Auto) 0.0 WBC Differential . Differential Comment Auto diff final PT INR APTT Sodium 133 L Potassium 4.3 D Chloride 95 L D Carbon Dioxide 29.8 Anion Gap 8 BUN 9 Creatinine 0.53 Estimated GFR Greater than 89 Random Glucose 185 H Lactic Acid Calcium 8.7 Magnesium Total Bilirubin AST ALT Alkaline Phosphatase Troponin I Total Protein Albumin Urine Color Urine Clarity Urine pH Ur Specific [place] Urine Protein Urine Glucose (UA) Urine Ketones Urine Occult Blood Urine Nitrate Urine Bilirubin Urine Urobilinogen Ur Leukocyte Esterase Urine RBC Urine WBC Urine WBC Clumps Ur Squamous Epith Cells Urine Bacteria Micro UA Comment Urine Culture Comments Stl C.difficile Tox PCR St C. diff Tox Epid 027 Microbiology 10/13/17 13:04 Blood - Peripheral Aerobic Blood Culture - Preliminary No growth in 1 day 10/13/17 13:04 Blood - Peripheral Anaerobic Blood Culture - Preliminary No growth in 1 day 10/13/17 13:05 Blood - Peripheral Aerobic Blood Culture - Preliminary No growth in 1 day 10/13/17 13:05 Blood - Peripheral Anaerobic Blood Culture - Final QNS - See aerobic report. 10/13/17 13:15 Clean Catch Urine Urine Culture - Preliminary gram negative rods - Imaging Impressions Chest X-Ray 10/13/17 12:37 CONCLUSION: 1. Minimal, asymmetric interstitial prominence in the right chest could represent some asymmetric vascular congestion or volume overload. 2. No confluent infiltrate, pneumothorax or effusion. Chest CT 10/13/17 13:43 CONCLUSION: Parenchymal infiltrates mainly in the right lung probably inflammatory and possibility of atypical pneumonia should be entertained. Assessment and Plan - Assessment (1) Fall Code(s): W19.XXXA - Unspecified fall, initial encounter Status: Acute (2) Hyponatremia Code(s): E87.1 - Hypo-osmolality and hyponatremia Status: Acute (3) UTI (urinary tract infection) Code(s): N39.0 - Urinary tract infection, site not specified Status: Acute (4) PNA (pneumonia) Code(s): J18.9 - Pneumonia, unspecified organism Status: Acute (5) SIRS (systemic inflammatory response syndrome) Code(s): R65.10 - Systemic inflammatory response syndrome (SIRS) of non- infectious origin without acute organ dysfunction Status: Acute - Plan 1. Fall: s/p mechanical fall 1wk ago, no head trauma or LOC reported, CT Chest w/ old right 3rd, 4th and 5th ribs fractures, no acute injury, images reviewed. PT for eval/tx, Case Management for possible placement. -Lives alone 2. PNA: CT Chest w/ parenchymal infiltrates right lung, s/p Rocephin/Zithro in ER, continue w/ IV Abx, DuoNeb prn, Mucinex. Incentive spirometry 3. UTI: U/a w/ UTI, follow up cultures, continue IV Abx, IVF for hydration, monitor I/O. 4. SIRS: HR 110's, RR 28, Source-UTI/PNA, follow up cultures as above, continue w/ IV Abx, telemetry. 5. Hyponatremia: Na 126, likely secondary to SIRS/dehydration/acute infection , IVF, monitor I/O, repeat labs in am. 6. DVT Prophylaxis: SCD/Teds Code Status: FULL CODE Discussed Condition With: RN AND PT AND CM Discharge Planning: PENDING SLOW IMPROVEMENT
--- NOTE | 2017-10-14 14:47 | ECG ---
Date Performed: 10/13/2017 Time Performed: 12:40:33 PTAGE: 67 years EKG: SINUS TACHYCARDIA ABNORMAL RHYTHM ECG NO PREVIOUS TRACING DOCTOR: Sanchez Rea Interpretating Date/Time 10/14/2017 14:46:08
[2017-10-14] MEDS: Azithromycin Inj 500 MG in Sodium Chlor 0.9% Inj 250 ML IV.SIG SCH (15:27)
[2017-10-14] MEDS: Enoxaparin Inj 30 MG/0.3 ML Syringe SQ SCH (20:22)
[2017-10-15] MEDS: guaiFENesin/Codeine Syrup 200 MG/20 MG 10 ML UDC PO PRN ×4 (02:16→20:29)
[2017-10-15] MEDS: Morphine Inj 4 MG/ML Vial IV.PUSH PRN ×2 (03:11→22:43)
[2017-10-15 08:23] LABS: Baso # (Auto) 0.1 th/mm3 (0.0-0.2); Baso % (Auto) 0.9 % (0.0-2.0); Eos % (Auto) 0.3 % (0.0-4.0); Hematocrit 34.2 % (35.0-46.0); Hemoglobin 11.4 gm/dL (11.6-15.3); Lymph % (Auto) 19.8 % (9.0-44.0); Mean Corpuscular HGB Conc 33.3 % (32.0-36.0); Mean Corpuscular Hemoglobin 32.8 pg (27.0-34.0); Mean Corpuscular Volume 98.7 fL (80.0-100.0); Mean Platelet Volume 7.5 fL (7.0-11.0); Mono # (Auto) 0.9 th/mm3 (0.0-0.9); Mono % (Auto) 9.4 % (0.0-8.0); Neut % (Auto) 69.6 % (16.0-70.0); Platelet Count 478 th/mm3 (150-450); Red Blood Count 3.47 mil/mm3 (4.00-5.30); Red Cell Distribution Width 15.6 % (11.6-17.2)
[2017-10-15 08:49] LABS: Alanine Aminotransferase 21 U/L (10-53); Albumin 2.2 g/dL (3.4-5.0); Anion Gap 8 meq/L (5-15); Aspartate Aminotransferase 23 U/L (15-37); Blood Urea Nitrogen 10 mg/dL (7-18); Calcium 8.7 mg/dL (8.5-10.1); Chloride 100 meq/L (98-107); Glomerular Filtration Rate Greater Than 89 mL/min (>89); Glucose,Random 87 mg/dL (74-106); Magnesium 2.1 mg/dL (1.5-2.5); Potassium 4.1 meq/L (3.5-5.1); Sodium 137 meq/L (136-145)
[2017-10-15 09:00] LABS: Alkaline Phosphatase 98 U/L (45-117); Free T4 (Free Thyroxine) 1.23 ng/dL (0.76-1.46)
[2017-10-15] MEDS: guaiFENesin 600 MG ER Tablet PO SCH ×2 (09:34→20:29)
[2017-10-15] MEDS: Enoxaparin Inj 40 MG/0.4 ML Syringe SQ SCH (09:38)
[2017-10-15 10:29] LABS: Lymphocytes 17 % (9-44); Monocytes 10 % (0-8); Platelet Morphology Normal (Normal)
[2017-10-15 10:30] LABS: Toxic Granulation 1+
[2017-10-15 11:34] LABS: Hemoglobin A1c 5.8 % (4.3-6.0)
--- NOTE | 2017-10-15 12:05 | P.PNIM ---
Subjective Interval history: This is a 67-year-old female with a PMH of HTN and Hyperlipidemia who presented to ER with complaints of SOB x1 wk. States symptoms starting shortly after a fall, denies head trauma or LOC. No chest pain, fever or chills, but reports non-productive wet cough. On arrival, BP 133/99, HR 103, O2 sat 91% on 2L NC, Afebrile. CBC essentially unremarkable. Na 126, K+ 3.3. Lactic Acid normal. Troponin negative. INR 1.1. UA positive for UTI. CXR with asymmetrical interstitial prominence right chest possibly congestion or overload. CT Chest with parenchymal infiltrates right lung probably inflammatory or atypical pneumonia. S/p Rocephin/Zithro in ER 10-14 PATIENT STATES SHE STILL HAS PAIN ON THE RIGHT TAKING PAIN MEDS AND MEDS FOR COUGH SUPPRESSANT NEEDS IS AND MUCINEX DW RN AND PT AND CM AM LABS 10-15 STILL STATES SHE HAS PAIN AND FEELS LOUSY TAKING PAIN MEDS DW RN AND PT AM LABS Physical Exam Vital signs: Vital Signs 10/14/17 13:53 10/14/17 13:58 10/14/17 16:00 Temperature 97.8 F Pulse Rate 89 92 H Respiratory Rate 18 17 Blood Pressure 107/58 L Pulse Oximetry 95 97 10/14/17 17:41 10/14/17 20:00 10/14/17 20:20 Temperature 97.9 F Pulse Rate 95 H Respiratory Rate 18 Blood Pressure 108/60 Pulse Oximetry 95 95 95 10/14/17 20:38 10/14/17 23:54 10/15/17 00:00 Temperature 98.1 F Pulse Rate 92 H 96 H 95 H Respiratory Rate 22 20 Blood Pressure 116/61 Pulse Oximetry 95 10/15/17 02:21 10/15/17 04:45 10/15/17 08:00 Temperature 98.1 F Pulse Rate 105 H 94 H 99 H Respiratory Rate 24 21 Blood Pressure 124/73 Pulse Oximetry 97 Intake & Output 10/14/17 10/15/17 10/15/17 18:59 06:59 18:59 Intake Total 1070 / 1070 240 / 240 250 / 250 Output Total 200 / 200 Balance 1070 / 1070 240 / 240 50 / 50 Weight 62.1 kg Intake: IV 350 / 350 Azithromycin Inj 500 MG In NS 250 / 250 Inj 250 ML @ 250 mls/hr IV.SIG Q24H NIR Rx#:[id number] Rocephin Inj 1,000 MG In NS Inj 100 / 100 100 ML @ 200 mls/hr IV.SIG Q24H NIR Rx#:[id number] Oral 720 / 720 240 / 240 250 / 250 Output: Urine 200 / 200 Other: # Voids 1 1 Date of Last Bowel Movement 10/13/17 10/14/17 10/14/17 Narrative: Talkative and cooperative GENERAL: Middle-aged white female in no acute distress. Intermittent cough. HEENT: PERRLA, EOMI. No scleral icterus or conjunctival pallor. No lid lag or facial droop. Tongue is midline Neck is supple there is no JVD or thyromegaly CARDIOVASCULAR: Regular rate and rhythm. No obvious murmurs to auscultation. No chest tenderness to palpation. S1-S2 no S3 or S4 RESPIRATORY: No obvious rhonchi or wheezing. COARSE BREATH SOUNDS BL. Breath sounds equal bilaterally. GASTROINTESTINAL: Abdomen soft, non-tender, nondistended. BS normal. Obese MUSCULOSKELETAL: Extremities without clubbing, cyanosis, or edema. No obvious deformities. NEUROLOGICAL: Awake, alert and oriented x4. No focal neurologic deficits. Moving both upper and lower extremities spontaneously. Results - Labs CBC & Chem 7: 10/15/17 06:53 10/15/17 06:53 Laboratory Results - last 24 hr 10/15/17 10/15/17 06:53 06:53 WBC 10.0 D RBC 3.47 L Hgb 11.4 L Hct 34.2 L MCV 98.7 MCH 32.8 MCHC 33.3 RDW 15.6 Plt Count 478 H MPV 7.5 Prelim Diff (Auto) Slide review pending Neut % (Auto) 69.6 Lymph % (Auto) 19.8 [place] % (Auto) 9.4 H Eos % (Auto) 0.3 Baso % (Auto) 0.9 Neut # (Auto) 7.0 Lymph # (Auto) 2.0 [place] # (Auto) 0.9 Eos # (Auto) 0.0 Baso # (Auto) 0.1 WBC Differential Manual diff final Seg Neuts % (Manual) 64 Band Neuts % (Manual) 9 H Lymphocytes % (Manual) 17 Monocytes % (Manual) 10 H Abs Neuts (Manual) 7.3 Differential Comment . Toxic Granulation 1+ H Platelet Estimate High H Platelet Morphology Normal Sodium 137 Potassium 4.1 Chloride 100 Carbon Dioxide 29.0 Anion Gap 8 BUN 10 Creatinine 0.49 L Estimated GFR Greater than 89 Random Glucose 87 Calcium 8.7 Magnesium 2.1 Total Bilirubin 0.3 AST 23 ALT 21 Alkaline Phosphatase 98 Total Protein 6.0 L D Albumin 2.2 L TSH 3.300 Free T4 1.23 Microbiology 10/13/17 13:04 Blood - Peripheral Aerobic Blood Culture - Preliminary No growth in 2 days 10/13/17 13:04 Blood - Peripheral Anaerobic Blood Culture - Preliminary No growth in 2 days 10/13/17 13:05 Blood - Peripheral Aerobic Blood Culture - Preliminary No growth in 2 days 10/13/17 13:05 Blood - Peripheral Anaerobic Blood Culture - Final QNS - See aerobic report. 10/13/17 13:15 Clean Catch Urine Urine Culture - Final Escherichia coli Assessment and Plan - Assessment (1) Fall Code(s): W19.XXXA - Unspecified fall, initial encounter Status: Acute (2) Hyponatremia Code(s): E87.1 - Hypo-osmolality and hyponatremia Status: Acute (3) UTI (urinary tract infection) Code(s): N39.0 - Urinary tract infection, site not specified Status: Acute (4) PNA (pneumonia) Code(s): J18.9 - Pneumonia, unspecified organism Status: Acute (5) SIRS (systemic inflammatory response syndrome) Code(s): R65.10 - Systemic inflammatory response syndrome (SIRS) of non- infectious origin without acute organ dysfunction Status: Acute - Plan 1. Fall: s/p mechanical fall 1wk ago, no head trauma or LOC reported, CT Chest w/ old right 3rd, 4th and 5th ribs fractures, no acute injury, images reviewed. PT for eval/tx, Case Management for possible placement. -Lives alone 2. PNA: CT Chest w/ parenchymal infiltrates right lung, s/p Rocephin/Zithro in ER, continue w/ IV Abx, DuoNeb prn, Mucinex. Incentive spirometry 3. UTI: U/a w/ UTI, follow up cultures, continue IV Abx, IVF for hydration, monitor I/O. 4. SIRS: HR 110's, RR 28, Source-UTI/PNA, follow up cultures as above, continue w/ IV Abx, telemetry. 5. Hyponatremia: Na 126, likely secondary to SIRS/dehydration/acute infection , IVF, monitor I/O, repeat labs in am. 6. DVT Prophylaxis: SCD/Teds Code Status: FULL CODE Discussed Condition With: RN AND PT AND CM Discharge Planning: PENDING SLOW IMPROVEMENT
[2017-10-15] MEDS: Azithromycin Inj 500 MG in Sodium Chlor 0.9% Inj 250 ML IV.SIG SCH (15:23)
--- NOTE | 2017-10-15 16:46 | P.DIET ---
Nutritional Evaluation Type of nutrition evaluation: initial Nutrition screening: Weight Loss > 10 lbs Subjective Subjective Comments: Admission Screening w/pt reporting appetite as good; no recent wt loss Objective - Diagnosis Pneumonia w/Hypoxia, UTI, Rib Fracture - Objective [place] body weight: 52.3 kg % IBW: 119 Body Weight Used for Calculations: Actual (62.1kg used for assessment here) Energy Needs - Lower Range (kCal/kg): 25 Energy Needs - Upper Range (kCal/kg): 30 Lower Limit kCal/kg (kCals): 1,553 Upper Limit kCal/kg (kCals): 1,863 Lower Limit Protein Factor (Grams per Kg): 1.0 Upper Limit Protein Factor (Grams per Kg): 1.3 Lower Protein Needs (Protein): 62 Upper Protein Needs (Protein): 81 Dietitian Reviewed in Medical Record: Current diet, Curent medications, Intake & Output, Labs, Medical history Diet Order: Regular Oral Diet Intake Amount: Fair 50-75% Objective Comments: PMH: HTN, hyperlipidemia A1C 5.8 LBM 10/14 Assessment Assessment: Admission Screening here w/pt reporting a good appetite and no recent wt loss. Pt po intake here is 50% for meals documented in EMR. Send Ensure w/meals for added nutrition. Plan to follow-up for supplement acceptance. i Recommendations: 1.Admission Screening here w/pt reporting a good appetite and no recent wt loss 2.PO Intake 50% for meals documented in EMR 3.Send Ensure w/meals for added nutrition 4.Plan to follow-up for supplement acceptance Dietitian to Monitor: Lab values, Supplement acceptance, Intake & Output, Weight change, PO Intake, Medical course
[2017-10-16] MEDS: guaiFENesin/Codeine Syrup 200 MG/20 MG 10 ML UDC PO PRN ×5 (00:47→20:27)
[2017-10-16] MEDS: Morphine Inj 4 MG/ML Vial IV.PUSH PRN ×6 (02:57→22:37)
[2017-10-16] MEDS: guaiFENesin 600 MG ER Tablet PO SCH ×2 (08:42→20:26)
[2017-10-16] MEDS: Enoxaparin Inj 40 MG/0.4 ML Syringe SQ SCH (08:42)
--- NOTE | 2017-10-16 10:10 | P.PN ---
Subjective Interval history: Follow up for PNA. She was seen and examined sitting up in bed this morning, mild dyspnea, reports some shortness of breath. She also reports productive cough now and again with beige color. Denies any fevers, chills, nausea, vomiting, diarrhea, headache or dizziness. Spoke with nurse who does not report any acute events overnight or this morning. Physical Exam Vital signs: Vital Signs 10/15/17 12:00 10/15/17 14:00 10/15/17 16:00 Temperature 36.6 C 36.6 C 36.6 C Pulse Rate 86 100 H 100 H Respiratory Rate 20 21 21 Blood Pressure 121/60 132/86 132/86 Pulse Oximetry 96 97 97 10/15/17 19:35 10/15/17 20:00 10/15/17 20:29 Temperature 36.3 C L Pulse Rate 92 H Respiratory Rate 18 Blood Pressure 154/88 H Pulse Oximetry 97 95 95 10/15/17 20:34 10/15/17 21:00 10/16/17 00:00 Temperature 36.6 C Pulse Rate 100 H 111 H 85 Respiratory Rate 22 20 Blood Pressure 168/91 H Pulse Oximetry 97 10/16/17 00:02 10/16/17 04:00 10/16/17 08:00 Temperature 36.6 C 36.8 C Pulse Rate 92 H 111 H 92 H Respiratory Rate 20 20 Blood Pressure 166/91 H 155/79 H Pulse Oximetry 95 96 10/16/17 09:00 10/16/17 09:12 Temperature Pulse Rate 94 H Respiratory Rate 18 Blood Pressure Pulse Oximetry Intake & Output 10/15/17 10/16/17 10/16/17 18:59 06:59 18:59 Intake Total 1160 / 1160 340 / 340 100 / 100 Output Total 200 / 200 800 / 800 Balance 960 / 960 -460 / -460 100 / 100 Intake: IV 250 / 250 100 / 100 Azithromycin Inj 500 MG In NS 250 / 250 Inj 250 ML @ 250 mls/hr IV.SIG Q24H NIR Rx#:[id number] Rocephin Inj 1,000 MG In NS Inj 100 / 100 100 ML @ 200 mls/hr IV.SIG Q24H NIR Rx#:[id number] Oral 910 / 910 340 / 340 Output: Urine 200 / 200 800 / 800 Other: # Voids 2 2 Date of Last Bowel Movement 10/14/17 10/15/17 10/15/17 # Bowel Movements 2 Narrative: GENERAL: Middle-aged white female with mild dyspnea on exam. Intermittent cough. HEENT: PERRLA, EOMI. No scleral icterus or conjunctival pallor. No lid lag or facial droop. Tongue is midline Neck is supple there is no JVD. CARDIOVASCULAR: Regular rate and rhythm. No obvious murmurs to auscultation. No chest tenderness to palpation. RESPIRATORY: Scattered anterior and posterior upper and lower lobe expiratory wheezing. GASTROINTESTINAL: Abdomen soft, non-tender, nondistended. BS normal. MUSCULOSKELETAL: Extremities without clubbing, cyanosis, or edema. No obvious deformities. NEUROLOGICAL: Awake, alert and oriented x4. No focal neurologic deficits. Moving both upper and lower extremities spontaneously. Results - Labs CBC & Chem 7: 10/15/17 06:53 10/15/17 06:53 Laboratory Results - last 24 hr 10/15/17 10/15/17 06:53 06:53 WBC Differential Manual diff final Seg Neuts % (Manual) 64 Band Neuts % (Manual) 9 H Lymphocytes % (Manual) 17 Monocytes % (Manual) 10 H Abs Neuts (Manual) 7.3 Toxic Granulation 1+ H Platelet Estimate High H Platelet Morphology Normal Hemoglobin A1c 5.8 Microbiology 10/13/17 13:04 Blood - Peripheral Aerobic Blood Culture - Preliminary No growth in 2 days 10/13/17 13:04 Blood - Peripheral Anaerobic Blood Culture - Preliminary No growth in 2 days 10/13/17 13:05 Blood - Peripheral Aerobic Blood Culture - Preliminary No growth in 2 days 10/13/17 13:05 Blood - Peripheral Anaerobic Blood Culture - Final QNS - See aerobic report. 10/13/17 13:15 Clean Catch Urine Urine Culture - Final Escherichia coli Assessment and Plan - Assessment (1) Fall Code(s): W19.XXXA - Unspecified fall, initial encounter Status: Acute (2) Hyponatremia Code(s): E87.1 - Hypo-osmolality and hyponatremia Status: Acute (3) UTI (urinary tract infection) Code(s): N39.0 - Urinary tract infection, site not specified Status: Acute (4) PNA (pneumonia) Code(s): J18.9 - Pneumonia, unspecified organism Status: Acute (5) SIRS (systemic inflammatory response syndrome) Code(s): R65.10 - Systemic inflammatory response syndrome (SIRS) of non- infectious origin without acute organ dysfunction Status: Acute - Plan Fall -s/p mechanical fall 1wk ago, no head trauma or LOC reported, CT Chest w/ old right 3rd, 4th and 5th ribs fractures, no acute injury, images reviewed. -PT for eval/tx, Case Management for possible placement, lives alone PNA - CT Chest w/ parenchymal infiltrates right lung, - Currently on IV Rocephin/Zithro, +productive cough, obtain sputum sample. -Repeat chest x-ray this morning with minimal patchiness within the right lower lung field consistent with atelectasis/mild infiltrate, tiny right pleural effusion. -+ Wheezing on exam, schedule duo nebs, encourage incentive spirometer, continue Mucinex - DuoNeb prn, if doing better possibly transition to oral antibiotics tomorrow. UTIE. coli -Pansensitive, continue IV Rocephin -Transition to p.o. tomorrow Tachycardia -Heart rate this morning improved, continue monitoring on telemetry. Hyponatremia, improved - Na 126 on admission, likely secondary to SIRS/dehydration/acute infection, IVF. - Na 137 DVT Prophylaxis: SCD/Teds Discussed Condition With: Patient, and nurse. Discharge Planning: Patient to continue IV antibiotics with scheduled nebulizer treatments, hopefully transition to p.o. antibiotics tomorrow. Case management and assisting with discharge, patient lives alone.
--- NOTE | 2017-10-16 13:39 | XR ---
EXAM DATE: 10/16/2017 1:31 PM EDT AGE/SEX: 67 years / Female INDICATIONS: . Cough, shortness of breath and chest pain. CLINICAL DATA: This is the patient's subsequent encounter. Patient reports that signs and symptoms h ave been present for 2 days and indicates a pain score of 5/10. MEDICAL/SURGICAL HISTORY: Hypertension. None. [place] [facility] [place]13/[place]. . FINDINGS: Minimal patchiness is noted within the right lower lung field consistent with atelectasis and/or mild infiltrate. Tiny right pleural effusion is noted. The left lung is clear. The heart is normal. Mild scoliosis of the thoracic spine is noted. CONCLUSION: 1. Minimal patchiness within the right lower lung field consistent with atelectasis and/or mild infi ltrate. 2. Tiny right pleural effusion. 3. Mild scoliosis of the thoracic spine. Electronically signed by: Neftali Sam MD 10/16/2017 1:37 PM EDT
[2017-10-16] MEDS: Azithromycin Inj 500 MG in Sodium Chlor 0.9% Inj 250 ML IV.SIG SCH (15:23)
[2017-10-17] MEDS: Morphine Inj 4 MG/ML Vial IV.PUSH PRN ×2 (03:11→08:52)
[2017-10-17] MEDS: guaiFENesin/Codeine Syrup 200 MG/20 MG 10 ML UDC PO PRN ×2 (06:08→13:16)
[2017-10-17] MEDS: Enoxaparin Inj 40 MG/0.4 ML Syringe SQ SCH (08:50)
[2017-10-17] MEDS: guaiFENesin 600 MG ER Tablet PO SCH ×2 (08:52→20:18)
--- NOTE | 2017-10-17 11:28 | P.PN ---
Subjective Interval history: Follow-up visit for PNA. Patient seen and examined sitting up in bed, in no acute distress. Respiratory status improved, reports her breathing is a little better than yesterday, ongoing cough. Patient was later seen ambulating with physical therapy and return back to bed with oxygen saturation of oxygen 91%. Patient denies any fevers, chills, nausea, vomiting, diarrhea or chest pain. Physical Exam Vital signs: Vital Signs 10/16/17 12:00 10/16/17 12:51 10/16/17 13:52 Temperature 36.4 C Pulse Rate 99 H 85 Respiratory Rate 20 18 12 Blood Pressure 134/69 Pulse Oximetry 95 10/16/17 14:21 10/16/17 16:00 10/16/17 17:06 Temperature 36.7 C Pulse Rate 102 H Respiratory Rate 18 16 18 Blood Pressure 151/90 H Pulse Oximetry 10/16/17 18:32 10/16/17 20:10 10/16/17 20:56 Temperature 36.7 C Pulse Rate 87 91 H Respiratory Rate 18 18 16 Blood Pressure 146/79 H Pulse Oximetry 96 92 L 10/16/17 23:48 10/17/17 03:11 10/17/17 03:45 Temperature 36.7 C 36.7 C Pulse Rate 95 H 89 Respiratory Rate 18 18 18 Blood Pressure 151/79 H 152/84 H Pulse Oximetry 94 L 95 10/17/17 08:00 10/17/17 09:00 Temperature 36.6 C Pulse Rate 89 77 Respiratory Rate 20 Blood Pressure 153/71 H Pulse Oximetry 95 Intake & Output 10/16/17 10/17/17 10/17/17 18:59 06:59 18:59 Intake Total 580 / 580 480 / 480 Balance 580 / 580 480 / 480 Weight 62.1 kg Intake: IV 100 / 100 Rocephin Inj 1,000 MG In NS Inj 100 / 100 100 ML @ 200 mls/hr IV.SIG Q24H NIR Rx#:[id number] Oral 480 / 480 480 / 480 Other: # Voids 2 5 Date of Last Bowel Movement 10/15/17 10/16/17 # Bowel Movements 0 Narrative: GENERAL: Middle-aged white female sitting up in bed in no acute distress. Intermittent cough. HEENT: PERRLA, EOMI. No scleral icterus or conjunctival pallor. No facial droop. Tongue is midline Neck is supple there is no JVD. CARDIOVASCULAR: Regular rate and rhythm. No obvious murmurs to auscultation. No chest tenderness to palpation. RESPIRATORY: Bilateral anterior upper expiratory wheezing, diminished breath sounds posteriorly. GASTROINTESTINAL: Abdomen soft, non-tender, nondistended. BS normal. MUSCULOSKELETAL: Extremities without clubbing, cyanosis, or edema. No obvious deformities. NEUROLOGICAL: Awake, alert and oriented x4. No focal neurologic deficits. Moving both upper and lower extremities spontaneously. Results - Labs CBC & Chem 7: 10/15/17 06:53 10/15/17 06:53 Microbiology 10/13/17 13:04 Blood - Peripheral Aerobic Blood Culture - Preliminary No growth in 4 days 10/13/17 13:04 Blood - Peripheral Anaerobic Blood Culture - Preliminary No growth in 4 days 10/13/17 13:05 Blood - Peripheral Aerobic Blood Culture - Preliminary No growth in 4 days 10/13/17 13:05 Blood - Peripheral Anaerobic Blood Culture - Final QNS - See aerobic report. 10/16/17 12:00 Sputum - Expectorated Sputum Gram Stain - Final - Imaging Impressions Chest X-Ray 10/16/17 00:00 CONCLUSION: 1. Minimal patchiness within the right lower lung field consistent with atelectasis and/or mild infiltrate. 2. Tiny right pleural effusion. 3. Mild scoliosis of the thoracic spine. Assessment and Plan - Assessment (1) Fall Code(s): W19.XXXA - Unspecified fall, initial encounter Status: Acute (2) Hyponatremia Code(s): E87.1 - Hypo-osmolality and hyponatremia Status: Acute (3) UTI (urinary tract infection) Code(s): N39.0 - Urinary tract infection, site not specified Status: Acute (4) PNA (pneumonia) Code(s): J18.9 - Pneumonia, unspecified organism Status: Acute (5) SIRS (systemic inflammatory response syndrome) Code(s): R65.10 - Systemic inflammatory response syndrome (SIRS) of non- infectious origin without acute organ dysfunction Status: Acute - Plan Fall -s/p mechanical fall 1wk ago, no head trauma or LOC reported, CT Chest w/ old right 3rd, 4th and 5th ribs fractures, no acute injury, images reviewed. -PT for eval/tx, recommending home with home health PT. PNA - CT Chest w/ parenchymal infiltrates right lung, - Treated with IV Rocephin/Zithro, +productive cough. Transition to p.o. Levaquin, sputum sample pending. - Repeat chest x-ray with minimal patchiness within the right lower lung field consistent with atelectasis/mild infiltrate, tiny right pleural effusion. -+ Wheezing on exam improved, but remains anteriorly. Continue scheduled duo nebs, ? If there is component of COPD since she has a history of tobacco abuse. -IV Solu-Medrol 1 now followed by p.o. prednisone UTIE. coli -Pansensitive, treated with IV Rocephin, transitioned to p.o. Levaquin Tachycardia -Heart rate stable, continue monitoring on telemetry. Hyponatremia, improved - Na 126 on admission, likely secondary to SIRS/dehydration/acute infection, IVF. - Na 137 DVT Prophylaxis: SCD/Teds Discussed Condition With: Patient and nurse. Discharge Planning: Patient transitioned to p.o. antibiotics, will order walk test. PT has recommended home with home health PT.
[2017-10-17] MEDS ORDERED: MethylPREDNISolone Sod Succinate Inj 125 MG/2 ML Vial IV.PUSH ONE (11:34)
--- NOTE | 2017-10-17 15:09 | P.DCO ---
- Diagnosis (3) PNA (pneumonia) - Physical Therapy Order: Evaluate and treat, Improve ambulation, Strength and gait training - Certification I have seen patient Tiffanie Thompson on 10/17/17. My clinical findings support the need for the requested home health care services because: Deconditioned with increased weakness I certify that my clinical findings support that this patient is homebound because: Unsteady gait/balance (3) PNA (pneumonia) Qualifiers: Pneumonia type: due to unspecified organism Laterality: right Lung location : upper lobe of lung Qualified Code(s): J18.1 - Lobar pneumonia, unspecified organism
[2017-10-17] MEDS: Lidocaine 5% Patch T-DERMAL SCH (15:59)
[2017-10-18] MEDS: guaiFENesin/Codeine Syrup 200 MG/20 MG 10 ML UDC PO PRN ×3 (00:31→23:59)
--- NOTE | 2017-10-18 09:02 | P.PN ---
Subjective Interval history: Follow-up visit for pneumonia and possible COPD. Patient is seen and examined sitting up in bed ended no acute distress. Reports ongoing cough throughout the night but denies any shortness of breath at the moment. Denies any fevers, chills, nausea, vomiting, diarrhea, headache, dizziness or chest pain. Denies any dysuria or abdominal pain. Physical Exam Vital signs: Vital Signs 10/17/17 12:00 10/17/17 13:07 10/17/17 13:31 Temperature 36.7 C Pulse Rate 87 98 H 81 Respiratory Rate 20 12 Blood Pressure 152/86 H Pulse Oximetry 95 Pulse Oximetry [Exertion on Room Air] Pulse Oximetry [Resting on Room Air] Pulse Oximetry [Resting with Oxygen] 10/17/17 16:00 10/17/17 16:55 10/17/17 19:32 Temperature 36.9 C Pulse Rate 94 H Respiratory Rate 20 22 Blood Pressure 168/81 H Pulse Oximetry 94 L Pulse Oximetry [Exertion on Room Air] 89 L Pulse Oximetry [Resting on Room Air] 93 L Pulse Oximetry [Resting with Oxygen] 96 10/17/17 19:34 10/17/17 20:15 10/17/17 20:31 Temperature 36.7 C Pulse Rate 118 H 117 H 111 H Respiratory Rate 22 17 Blood Pressure 133/73 Pulse Oximetry 98 Pulse Oximetry [Exertion on Room Air] Pulse Oximetry [Resting on Room Air] Pulse Oximetry [Resting with Oxygen] 10/18/17 00:00 10/18/17 00:28 10/18/17 00:31 Temperature 36.8 C Pulse Rate 103 H 101 H Respiratory Rate 18 18 Blood Pressure 143/72 H Pulse Oximetry 92 L Pulse Oximetry [Exertion on Room Air] Pulse Oximetry [Resting on Room Air] Pulse Oximetry [Resting with Oxygen] 10/18/17 03:42 10/18/17 03:55 10/18/17 06:24 Temperature 36.4 C L Pulse Rate 108 H 88 Respiratory Rate 18 18 Blood Pressure 149/80 H Pulse Oximetry 94 L Pulse Oximetry [Exertion on Room Air] Pulse Oximetry [Resting on Room Air] Pulse Oximetry [Resting with Oxygen] Intake & Output 10/17/17 10/18/17 10/18/17 18:59 06:59 18:59 Intake Total 480 / 480 360 / 360 Balance 480 / 480 360 / 360 Weight 62.1 kg Intake: Oral 480 / 480 360 / 360 Other: # Voids 2 5 Date of Last Bowel Movement 10/17/17 # Bowel Movements 0 Narrative: GENERAL: Middle-aged white female sitting up in bed in no acute distress. HEENT: PERRLA, EOMI. No scleral icterus or conjunctival pallor. No facial droop. Tongue is midline Neck is supple there is no JVD. CARDIOVASCULAR: Regular rate and rhythm. No obvious murmurs to auscultation. No chest tenderness to palpation. RESPIRATORY: Scant upper expiratory wheezing, fair air entry on posterior lower lobes. No crackles or rhonchi appreciated. GASTROINTESTINAL: Abdomen soft, non-tender, nondistended. BS normal. MUSCULOSKELETAL: Extremities without clubbing, cyanosis, or edema. No obvious deformities. NEUROLOGICAL: Awake, alert and oriented x4. No focal neurologic deficits. Moving both upper and lower extremities spontaneously. Results - Labs CBC & Chem 7: 10/15/17 06:53 10/18/17 08:18 Microbiology 10/16/17 12:00 Sputum - Expectorated Sputum Gram Stain - Final 10/16/17 12:00 Sputum - Expectorated Sputum Sputum Culture - Preliminary Immature growth - reincubate 10/13/17 13:04 Blood - Peripheral Aerobic Blood Culture - Preliminary No growth in 4 days 10/13/17 13:04 Blood - Peripheral Anaerobic Blood Culture - Preliminary No growth in 4 days 10/13/17 13:05 Blood - Peripheral Aerobic Blood Culture - Preliminary No growth in 4 days 10/13/17 13:05 Blood - Peripheral Anaerobic Blood Culture - Final QNS - See aerobic report. Assessment and Plan - Assessment (1) Fall Code(s): W19.XXXA - Unspecified fall, initial encounter Status: Acute (2) Hyponatremia Code(s): E87.1 - Hypo-osmolality and hyponatremia Status: Acute (3) UTI (urinary tract infection) Code(s): N39.0 - Urinary tract infection, site not specified Status: Acute (4) PNA (pneumonia) Code(s): J18.9 - Pneumonia, unspecified organism Status: Acute (5) SIRS (systemic inflammatory response syndrome) Code(s): R65.10 - Systemic inflammatory response syndrome (SIRS) of non- infectious origin without acute organ dysfunction Status: Acute - Plan Fall -s/p mechanical fall 1wk ago, no head trauma or LOC reported, CT Chest w/ old right 3rd, 4th and 5th ribs fractures, no acute injury, images reviewed. -PT for eval/tx, recommending home with home health PT. PNA Possible underlying COPD - CT Chest w/ parenchymal infiltrates right lung, - Treated with IV Rocephin/Zithro, +productive cough. Transition to p.o. Levaquin, sputum sample with normal respiratory naida. - Repeat chest x-ray with minimal patchiness within the right lower lung field consistent with atelectasis/mild infiltrate, tiny right pleural effusion. -Minimal wheezing noted, continue p.o. Levaquin for pneumonia and p.o. prednisone -Patient failed walk test, will need home health for PT as well as education on oxygen UTIE. coli -Pansensitive, treated with IV Rocephin, transitioned to p.o. Levaquin -Denies dysuria Tachycardia -Heart rate stable, continue monitoring on telemetry. Hyponatremia, improved - Na 126 on admission, likely secondary to SIRS/dehydration/acute infection, IVF. 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 Possible DC tomorrow. (4) PNA (pneumonia) Qualifiers: Pneumonia type: due to unspecified organism Laterality: right Lung location : upper lobe of lung Qualified Code(s): J18.1 - Lobar pneumonia, unspecified organism
[2017-10-18 09:28] LABS: Calcium 9.8 mg/dL (8.5-10.1); Carbon Dioxide 31.6 meq/L (21.0-32.0); Potassium 4.4 meq/L (3.5-5.1)
[2017-10-18] MEDS: Enoxaparin Inj 40 MG/0.4 ML Syringe SQ SCH (10:32)
[2017-10-18] MEDS: Lidocaine 5% Patch T-DERMAL SCH (10:33)
[2017-10-18] MEDS: levoFLOXacin 750 MG Tablet PO SCH (10:33)
[2017-10-18] MEDS: guaiFENesin 600 MG ER Tablet PO SCH ×3 (10:33→22:57)
[2017-10-18] MEDS: predniSONE 20 MG Tablet PO SCH (10:33)
--- NOTE | 2017-10-18 14:17 | P.DCO ---
- Physical Therapy Order: Evaluate and treat, Improve ambulation, Strength and gait training - Home Health Nursing Order: Signs/symptoms of disease process, Oxygen administration education - Certification I have seen patient Tiffanie Thompson on 10/18/17. My clinical findings support the need for the requested home health care services because: Limited mobility due to disease progression, Patient has SOB I certify that my clinical findings support that this patient is homebound because: Impaired cognitive ability/safety
[2017-10-18] MEDS: Budesonide-Formoterol 160/4.5 MCG 6 GM Inhaler INH SCH ×2 (19:43→22:56)
[2017-10-19] MEDS: guaiFENesin/Codeine Syrup 200 MG/20 MG 10 ML UDC PO PRN (05:27)
[2017-10-19] MEDS: predniSONE 20 MG Tablet PO SCH (09:16)
[2017-10-19] MEDS: Lidocaine 5% Patch T-DERMAL SCH (09:17)
[2017-10-19] MEDS: Enoxaparin Inj 40 MG/0.4 ML Syringe SQ SCH (09:17)
[2017-10-19] MEDS: levoFLOXacin 750 MG Tablet PO SCH (09:17)
[2017-10-19] MEDS: guaiFENesin 600 MG ER Tablet PO SCH (09:17)
--- NOTE | 2017-10-19 09:45 | P.DS ---
Date of admission: 10/13/17 17:08 Primary care physician: No Primary Care Physician Attending physician on discharge: Keely Freedman Anticipated date of discharge: 10/19/17 Brief History from admission: This is a 67-year-old female with a PMH of HTN and Hyperlipidemia who presented to ER with complaints of SOB x1 wk. States symptoms starting shortly after a fall, denies head trauma or LOC. No chest pain, fever or chills, but reports non-productive wet cough. On arrival, BP 133/99, HR 103, O2 sat 91% on 2L NC, Afebrile. CBC essentially unremarkable. Na 126, K+ 3.3. Lactic Acid normal. Troponin negative. INR 1.1. UA positive for UTI. CXR with asymmetrical interstitial prominence right chest possibly congestion or overload. CT Chest with parenchymal infiltrates right lung probably inflammatory or atypical pneumonia. S/p Rocephin/Zithro in ER DS: Diagnosis - Discharge Diagnosis (1) Fall Status: Acute (2) Hyponatremia Status: Acute (3) UTI (urinary tract infection) Status: Acute (4) PNA (pneumonia) Status: Acute (5) SIRS (systemic inflammatory response syndrome) Status: Acute DS: Medications - Discharge Medications Prescriptions: albuterol sulfate [Ventolin HFA] 2 puff INHALATION Q4H PRN #7 inhaler PRN Reason: Shortness Of Breath benzonatate [Tessalon Perles] 100 mg PO TID PRN #12 cap PRN Reason: Cough budesonide-formoterol [Symbicort] 2 puff INH BID #1 inhaler guaifenesin [Mucinex] 600 mg PO BID 5 Days #10 tab hydrocodone-acetaminophen 1 tab PO Q6HR PRN #8 tab PRN Reason: PAIN 3-5 levofloxacin 750 mg PO DAILY #3 tab lidocaine [Lidoderm] 1 patch TRANSDERMAL DAILY #5 ea nicotine 1 patch TRANSDERMAL Q24H #14 ea nicotine 1 patch TRANSDERMAL Q24H #42 ea nicotine [Nicoderm CQ] 1 patch TRANSDERMAL Q24H #14 ea prednisone 40 mg PO DAILY 4 Days #8 tab DS: Summary Hospital Course: 67-year-old female with past medical history significant for HTN, HLD, and tobacco abuse who presented to the emergency department on 10/13 with 1 week duration of shortness of breath. Recommend emergency department revealed hyponatremia, hypocalcemia, UTI and interstitial prominence on right side of chest with congestion and concerns for overload. CT of chest with parenchymal infiltrates right lung probably inflammation or atypical pneumonia. Patient was treated with IV Rocephin and azithromycin and later transitioned over to p.o. Levaquin. Patient with a history of tobacco abuse in the past, suspicion for underlying COPD. Patient was provided with IV Solu-Medrol 1 dose, p.o. prednisone and scheduled breathing treatments. She was also started on scheduled Symbicort. Patient was evaluated by respiratory therapist and failed walk test with recommendations for home oxygen. Repeat chest x-ray completed on 10/16 with minimal patchiness within the right lower lung field consistent with atelectasis and or mild infiltrate, tiny pleural effusion. Patient experienced some wheezing which improved throughout her hospitalization course. Patient was seen and evaluated by physical therapy who recommended home with home health physical therapy. This morning patient is seen and examined sitting up in bed, appears to be in no acute distress. She reports cough is better, denies any SOB, fevers, chills, N/V/D, dysuria, headache, dizziness or chest pain. Cough this morning is less wet sounding and only faint upper anterior lobe wheezing noted. Patient is aware that she will need to follow-up with her primary care physician, requesting nicotine patch prescription for absolute smoking cessation. Home oxygen tank has been delivered in room, continuous pillowcase cutter to provide phone number for home concentrator when she arrives. Patient voices no other acute concerns or complaints at the moment. E force verified with patients first and last name as well as date of . "No matching patient's identified" - Time Spent with Patient Total time spent providing and/or coordinating discharge services: - Quality: VTE Deep Vein Thrombosis/Pulmonary Embolism Present on Admission: No Exam Vital signs: Vital Signs 10/18/17 12:00 10/18/17 13:33 10/18/17 16:00 Temperature 36.8 C 36.5 C Pulse Rate 96 H 91 H 93 H Respiratory Rate 18 20 18 Blood Pressure 138/72 155/92 H Pulse Oximetry 95 94 L 10/18/17 20:00 10/18/17 20:07 10/18/17 20:08 Temperature 36.7 C Pulse Rate 90 90 Respiratory Rate 18 15 Blood Pressure 146/86 H Pulse Oximetry 96 98 10/18/17 20:16 10/19/17 00:00 10/19/17 04:00 Temperature 36.6 C 36.9 C Pulse Rate 99 H 104 H 113 H Respiratory Rate 20 20 Blood Pressure 168/89 H 154/89 H Pulse Oximetry 96 93 L 10/19/17 04:18 Temperature Pulse Rate 95 H Respiratory Rate Blood Pressure Pulse Oximetry Intake & Output 10/18/17 10/19/17 10/19/17 18:59 06:59 18:59 Intake Total 800 / 800 Output Total 1400 / 1400 Balance -600 / -600 Intake: Oral 800 / 800 Output: Urine 1400 / 1400 Other: # Voids 4 Date of Last Bowel Movement 10/16/17 10/17/17 Narrative: GENERAL: Middle-aged white female sitting up in bed in no acute distress. Intermittent cough. HEENT: PERRLA, EOMI. No scleral icterus or conjunctival pallor. No facial droop. Tongue is midline Neck is supple there is no JVD. CARDIOVASCULAR: Regular rate and rhythm. No obvious murmurs to auscultation. No chest tenderness to palpation. RESPIRATORY: Bilateral anterior faint expiratory wheezing, fair air entry posteriorly. GASTROINTESTINAL: Abdomen soft, non-tender, nondistended. BS normal. MUSCULOSKELETAL: Extremities without clubbing, cyanosis, or edema. No obvious deformities. NEUROLOGICAL: Awake, alert and oriented x4. No focal neurologic deficits. Moving both upper and lower extremities spontaneously. Results Procedures completed during hospitalization: None Labs on day of discharge: Labs from last 24 hours 10/18/17 08:18 Sodium 134 L Potassium 4.4 Chloride 95 L Carbon Dioxide 31.6 Anion Gap 7 BUN 10 Creatinine 0.68 Estimated GFR 86 L Random Glucose 98 Calcium 9.8 - Impressions ITS Impressions Chest CT 10/13/17 13:43 CONCLUSION: Parenchymal infiltrates mainly in the right lung probably inflammatory and possibility of atypical pneumonia should be entertained. Chest X-Ray 10/16/17 00:00 CONCLUSION: 1. Minimal patchiness within the right lower lung field consistent with atelectasis and/or mild infiltrate. 2. Tiny right pleural effusion. 3. Mild scoliosis of the thoracic spine. Discharge Plan - Discharge Disposition Patient Disposition: W/Home Health Service - Discharge Condition Condition: Stable - Discharge Order Discharge Orders: Discharge Order (Routine); Ordered 10/19/17 Ordered By: Berto Burgess - Discharge Details Anticipated Discharge Date: 10/19/17 - Physicians Team Primary Care Provider: Primary Care Jemma Mota Attending Provider: Keely Freedman
[2017-10-19] MEDS: Budesonide-Formoterol 160/4.5 MCG 6 GM Inhaler INH SCH (12:27)
[2017-10-19 14:05] VITALS: PULSE 91; RESP 20
[2017-10-19 18:56] VITALS: BP 120/64; TEMP 98.3; O2SAT 95
== END 2017-10-19 16:10 | disposition home health service (06) ==
LOC: NEPC 12:06 → NEDA 17:08 → N06 19:54
PROVIDERS: ADMIT Family Medicine; ATTEND Family Medicine

== ENCOUNTER 2017-11-06 01:01 | Observation (INO) ==
[2017-11-06 01:50] LABS: Baso # (Auto) 0.1 th/mm3 (0.0-0.2); Baso % (Auto) 1.5 % (0.0-2.0); Eos # (Auto) 0.2 th/mm3 (0.0-0.4); Eos % (Auto) 2.8 % (0.0-4.0); Hematocrit 35.8 % (35.0-46.0); Hemoglobin 12.9 gm/dL (11.6-15.3); Lymph # (Auto) 1.9 th/mm3 (1.0-4.8); Lymph % (Auto) 35.2 % (9.0-44.0); Mean Corpuscular Volume 94.5 fL (80.0-100.0); Mean Platelet Volume 7.2 fL (7.0-11.0); Mono # (Auto) 0.3 th/mm3 (0.0-0.9); Mono % (Auto) 6.1 % (0.0-8.0); Neut # (Auto) 2.9 th/mm3 (1.8-7.7); Neut % (Auto) 54.4 % (16.0-70.0); Platelet Count 222 th/mm3 (150-450); Red Blood Count 3.79 mil/mm3 (4.00-5.30); Red Cell Distribution Width 15.5 % (11.6-17.2); White Blood Count 5.3 th/mm3 (4.0-11.0)
--- NOTE | 2017-11-06 02:03 | XR ---
EXAM DATE: 11/06/2017 1:49 AM EDT AGE/SEX: 67 years / Female INDICATIONS: Shortness of breath. CLINICAL DATA: This is the patient's initial encounter. Patient reports that signs and symptoms have been present for 1 day and indicates a pain score of 0/10. MEDICAL/SURGICAL HISTORY: None. None. [place] [facility] [place]. . FINDINGS: A single AP view of the chest demonstrates the lungs to be hyperaerated without evidence of mass, inf iltrate or effusion. The cardiomediastinal contours are unremarkable. Osseous structures are intact . CONCLUSION: Hyperinflation without acute cardiopulmonary disease Electronically signed by: Tyler Seymour MD 11/06/2017 2:02 AM EDT
[2017-11-06 02:05] LABS: Activated Partial Thrombo Time 27.3 sec (24.3-30.1); D-Dimer 0.53 mg/L FEU (0.00-0.50); Prothrombin Time 9.9 sec (9.8-11.6)
[2017-11-06 02:13] LABS: Alanine Aminotransferase 34 U/L (10-53); Anion Gap 12 meq/L (5-15); Aspartate Aminotransferase 34 U/L (15-37); Blood Urea Nitrogen 2 mg/dL (7-18); Carbon Dioxide 24.8 meq/L (21.0-32.0); Chloride 97 meq/L (98-107); Glomerular Filtration Rate Greater Than 89 mL/min (>89); Glucose,Random 93 mg/dL (74-106); Lipase 311 U/L (73-393); Potassium 3.4 meq/L (3.5-5.1); Sodium 134 meq/L (136-145)
[2017-11-06 02:17] LABS: Alkaline Phosphatase 124 U/L (45-117); Total Protein 6.1 g/dL (6.4-8.2)
[2017-11-06 02:18] LABS: Platelet Estimate Normal (Normal); Platelet Morphology Normal (Normal); RBC Morphology Normal (Normal)
[2017-11-06 02:30] LABS: Creatine Kinase 57 U/L (26-192)
--- NOTE | 2017-11-06 02:45 | ED ---
HPI General Chief complaint: Chest Pain Stated complaint: Chest Pain Time Seen by Provider: 11/06/17 01:19 Source: patient and EMS Mode of arrival: EMS Limitations: altered mental status History of Present Illness HPI narrative: The patient is a 67 year old female who presents to the [facility] emergency department with a history of chest pain and shortness of breath that she reports began while she was lying down trying to go to sleep approximately 1 hour prior to arrival. The patient reports that the character of the pain is a chest pressure. She reports that it is in the center of her chest. She denies having any radiation of the pain. She reports that she did have nausea prior to arrival, however this improved with Zofran administration by ambulance services. The patient reported that her pain levels initially a 7 out of 10 in severity, however after one sublingual nitroglycerin by ambulance services her pain level was down to a 2 out of 10 in severity. The patient denies having a primary care physician as she reports that she does not like to go to the doctor. She denies having any history of heart problems. She does report being on home oxygen, however she is unsure why. The patient appears to be confused on examination. The patient cannot recall being in the hospital last month for pneumonia. The patient's medical history is limited from her based on her confusion. She is oriented to person and place, however not time or situation. On review of systems otherwise, she denies having any cough or congestion, neck pain, chest pain, shortness of breath, abdominal pain, diarrhea , urinary symptoms, one-sided weakness, numbness or tingling to her extremities , slurred speech, facial droop, difficulty with word finding ability, or vision changes. Related Data Home Medications Medication Instructions Recorded Confirmed No Known Home Medications 10/13/17 11/06/17 Allergies Allergy/AdvReac Type Severity Reaction Status Date / Time No Known Allergies Allergy Verified 11/06/17 01:21 Review of Systems ROS: all other systems reviewed are negative (Except for that which is mentioned in the HPI.) [facility] Medical History Medical History Breathing problem (Acute) HTN (hypertension) (Acute) High cholesterol (Acute) Patient denies medical problems (Acute) Surgical History Surgical History H/O tubal ligation (Acute) Family History Family History Other Family history normal Social History Social History Substance History: Past History Second Hand Smoke Exposure: Yes Smoking Status: Current every day smoker Tobacco Type: Cigarettes Packs Per Day: 1.5 Cigarettes Per Day: 30.0 How Often Do You Have a Drink Containing Alcohol: 2 to 3 times a week Immunization History Tetanus Immunization: Unsure Hx Influenza Vaccine This Season: No Exam Const General: cooperative, no acute distress and well developed Nutritional Appearance: well nourished Orientation: alert, awake, oriented to person, oriented to place, not oriented to time and confused [facility] Head: normocephalic and atraumatic Nose: no nasal discharge and no epistaxis Mouth: moist mucous membranes Throat: posterior oropharynx normal and uvula midline Eyes Sclera: normal sclerae Pupils: PERRL Neck Neck: no meningeal signs, trachea midline and no JVD Resp Effort & Inspection: no use of accessory muscles Auscultation: clear to auscultation bilaterally Cardio Rate: regular rate Rhythm: regular rhythm Heart Sounds: no murmurs GI Inspection: non-distended Palpation: soft, no hepatosplenomegaly and nontender Auscultation: normal bowel sounds Back/Spine/Pelvis Back: no CVA tenderness Skin General: dry skin (warm) Neuro General: alert, awake and oriented (Person and place, however not time or situation.) Cranial Nerves: CN's II-XI intact bilaterally Speech: speech normal Motor: strength 5/5 throughout and other (The patient repeatedly opens and closes her mouth when not talking. When asked about this she reports that she was not aware that she was doing it.) Sensory Exam: no sensory deficits noted Extrem General: normal to inspection, no clubbing, no cyanosis and no edema Psych Mood: congruent mood Affect: indifferent Judgment: limited Course Consultations Consultation #1: The patient's case including history, pertinent physical examination findings, and laboratory studies were discussed with Dr. Davila. It was agreed that the patient would be admitted to the hospitalist service. Initial Documented Vital Signs Temperature 98.1 F 11/06/17 01:11 Pulse Rate 99 H 11/06/17 01:11 Respiratory Rate 24 11/06/17 01:11 Blood Pressure 160/88 H 11/06/17 01:11 Pulse Oximetry 96 11/06/17 01:11 Last Documented Vital Signs Temperature 99.2 F 11/06/17 11:36 Pulse Rate 92 H 11/06/17 16:17 Respiratory Rate 16 11/06/17 16:17 Blood Pressure 178/98 H 11/06/17 12:30 Pulse Oximetry 93 L 11/06/17 11:36 Medical Decision Making MDM Narrative Medical decision making narrative: During the course of the patient's emergency department visit, the patient's history, examination, and differential diagnosis were reviewed with the patient. The patient was placed on a cardiac rehab nurse with oximetry and frequent blood pressure monitoring. The patient had IV access obtained and blood work sent for analysis. The patient's diagnostic evaluation was started regarding the patient's chest pain and shortness of breath. The patient was initially provided nitroglycerin 1 inch to the chest wall. The patient was given nitroglycerin sublingual 1 prior to arrival along with aspirin 324 mg p.o. 1 by ambulance services. The patient's diagnostic evaluation was remarkable for a white count of 5.3, platelets 222, normal differential, hemoglobin 12.9. PT 9.9, PTT 27.3, d-dimer is elevated at 0.53, therefore a CTA to rule out PE has been ordered. Chemistries remarkable for a troponin I of less than 0.02, total protein 6.1, sodium 134, potassium 3.4, chloride 97, calcium 8.0, BUN 2, BNP is 31. Chest x-ray revealed hyperinflation without any acute cardiopulmonary process. CTA showed no evidence of pulmonary embolism, patchy densities in the right upper lobe and right lower lobe suggestive of infectious or inflammatory etiology. The patient had blood cultures 2 added to her workup. The patient was started on broad-spectrum antibiotic for suspected recurrent pneumonia. The patient will be admitted to the hospital for continued evaluation and treatment. The patient's results were discussed with the patient, including the plan of care. I explained that further testing and/ or monitoring is indicated based on the patient's history, examination, and/ or laboratory findings. Therefore, I recommended admission for additional evaluation. The patient expressed understanding and was agreeable with this plan. The patient was admitted to the hospital in guarded condition and sent to a bed under the care of the [facility] service. Differential Diagnosis Differential Diagnosis: Acute coronary syndrome, versus congestive heart failure , versus recurrent pneumonia, versus pneumothorax Medical Records Medical records reviewed: Yes I reviewed the patient's medical records. Lab Data Lab results reviewed: Yes I reviewed the patient's lab results. Result diagrams: 11/06/17 01:30 11/06/17 01:30 Lab Results 11/06/17 11/06/17 11/06/17 Range/Units 01:30 01:30 01:30 WBC 5.3 (4.0-11.0) th/mm3 RBC 3.79 L (4.00-5.30) mil/mm3 Hgb 12.9 (11.6-15.3) gm/dL Hct 35.8 (35.0-46.0) % MCV 94.5 (80.0-100.0) fL MCH 34.0 (27.0-34.0) pg MCHC 36.0 (32.0-36.0) % RDW 15.5 (11.6-17.2) % Plt Count 222 D (150-450) th/mm3 MPV 7.2 (7.0-11.0) fL Prelim Diff (Auto) Slide review pending Neut % (Auto) 54.4 (16.0-70.0) % Lymph % (Auto) 35.2 (9.0-44.0) % Rice % (Auto) 6.1 (0.0-8.0) % Eos % (Auto) 2.8 (0.0-4.0) % Baso % (Auto) 1.5 (0.0-2.0) % Neut # (Auto) 2.9 (1.8-7.7) th/mm3 Lymph # (Auto) 1.9 (1.0-4.8) th/mm3 Rice # (Auto) 0.3 (0.0-0.9) th/mm3 Eos # (Auto) 0.2 (0.0-0.4) th/mm3 Baso # (Auto) 0.1 (0.0-0.2) th/mm3 WBC Differential . Diff Scan Auto diff confirmed Differential Comment . Platelet Estimate Normal (Normal) Platelet Morphology Normal (Normal) RBC Morphology Normal (Normal) PT 9.9 (9.8-11.6) sec INR 1.0 Ratio APTT 27.3 (24.3-30.1) sec D-Dimer Quant (PE/DVT) 0.53 H (0.00-0.50) mg/L FEU Sodium (136-145) meq/L Potassium (3.5-5.1) meq/L Chloride (98-107) meq/L Carbon Dioxide (21.0-32.0) meq/L Anion Gap (5-15) meq/L BUN (7-18) mg/dL Creatinine (0.50-1.00) mg/dL Estimated GFR (>89) mL/min Random Glucose (74-106) mg/dL Calcium (8.5-10.1) mg/dL Magnesium (1.5-2.5) mg/dL Total Bilirubin (0.2-1.0) mg/dL AST (15-37) U/L ALT (10-53) U/L Alkaline Phosphatase (45-117) U/L Ammonia (11-32) mcmol/L Total Creatine Kinase (26-192) U/L Troponin I (0.02-0.05) ng/mL B-Natriuretic Peptide 31 (0-100) pg/mL Total Protein (6.4-8.2) g/dL Albumin (3.4-5.0) g/dL Lipase (73-393) U/L Urine Color (Yellw/Straw) Urine Clarity (Clear) Urine pH (5.0-8.5) Ur Specific [place] (1.002-1.035) Urine Protein (Neg-Trace) mg/dL Urine Glucose (UA) (Negative) mg/dL Urine Ketones (Negative) mg/dL Urine Occult Blood (Negative) Urine Nitrate (Negative) Urine Bilirubin (Negative) Urine Urobilinogen (Less than 2) mg/dL Ur Leukocyte Esterase (Negative) Urine WBC (0-5) /hpf Ur Squamous Epith Cells (0-5) /hpf Micro UA Comment Urine Culture Comments Serum Alcohol (0-5) mg/dL 11/06/17 11/06/17 11/06/17 Range/Units 01:30 01:30 03:30 WBC (4.0-11.0) th/mm3 RBC (4.00-5.30) mil/mm3 Hgb (11.6-15.3) gm/dL Hct (35.0-46.0) % MCV (80.0-100.0) fL MCH (27.0-34.0) pg MCHC (32.0-36.0) % RDW (11.6-17.2) % Plt Count (150-450) th/mm3 MPV (7.0-11.0) fL Prelim Diff (Auto) Neut % (Auto) (16.0-70.0) % Lymph % (Auto) (9.0-44.0) % Rice % (Auto) (0.0-8.0) % Eos % (Auto) (0.0-4.0) % Baso % (Auto) (0.0-2.0) % Neut # (Auto) (1.8-7.7) th/mm3 Lymph # (Auto) (1.0-4.8) th/mm3 Rice # (Auto) (0.0-0.9) th/mm3 Eos # (Auto) (0.0-0.4) th/mm3 Baso # (Auto) (0.0-0.2) th/mm3 WBC Differential Diff Scan Differential Comment Platelet Estimate (Normal) Platelet Morphology (Normal) RBC Morphology (Normal) PT (9.8-11.6) sec INR Ratio APTT (24.3-30.1) sec D-Dimer Quant (PE/DVT) (0.00-0.50) mg/L FEU Sodium 134 L (136-145) meq/L Potassium 3.4 L (3.5-5.1) meq/L Chloride 97 L (98-107) meq/L Carbon Dioxide 24.8 (21.0-32.0) meq/L Anion Gap 12 (5-15) meq/L BUN 2 L (7-18) mg/dL Creatinine 0.52 (0.50-1.00) mg/dL Estimated GFR Greater than 89 (>89) mL/min Random Glucose 93 (74-106) mg/dL Calcium 8.0 L (8.5-10.1) mg/dL Magnesium 2.0 (1.5-2.5) mg/dL Total Bilirubin 0.5 (0.2-1.0) mg/dL AST 34 (15-37) U/L ALT 34 (10-53) U/L Alkaline Phosphatase 124 H (45-117) U/L Ammonia (11-32) mcmol/L Total Creatine Kinase 57 (26-192) U/L Troponin I Less than 0.02 L (0.02-0.05) ng/mL B-Natriuretic Peptide (0-100) pg/mL Total Protein 6.1 L (6.4-8.2) g/dL Albumin 3.0 L (3.4-5.0) g/dL Lipase 311 (73-393) U/L Urine Color Straw (Yellw/Straw) Urine Clarity Clear (Clear) Urine pH 5.0 (5.0-8.5) Ur Specific [place] 1.006 (1.002-1.035) Urine Protein Negative (Neg-Trace) mg/dL Urine Glucose (UA) Negative (Negative) mg/dL Urine Ketones Negative (Negative) mg/dL Urine Occult Blood Negative (Negative) Urine Nitrate Negative (Negative) Urine Bilirubin Negative (Negative) Urine Urobilinogen Less than 2 (Less than 2) mg/dL Ur Leukocyte Esterase Negative (Negative) Urine WBC Less than 1 (0-5) /hpf Ur Squamous Epith Cells 1 (0-5) /hpf Micro UA Comment Culture not ind Urine Culture Comments Culture not ind Serum Alcohol 124 H (0-5) mg/dL 11/06/17 11/06/17 11/06/17 Range/Units 05:10 06:40 13:00 WBC (4.0-11.0) th/mm3 RBC (4.00-5.30) mil/mm3 Hgb (11.6-15.3) gm/dL Hct (35.0-46.0) % MCV (80.0-100.0) fL MCH (27.0-34.0) pg MCHC (32.0-36.0) % RDW (11.6-17.2) % Plt Count (150-450) th/mm3 MPV (7.0-11.0) fL Prelim Diff (Auto) Neut % (Auto) (16.0-70.0) % Lymph % (Auto) (9.0-44.0) % Rice % (Auto) (0.0-8.0) % Eos % (Auto) (0.0-4.0) % Baso % (Auto) (0.0-2.0) % Neut # (Auto) (1.8-7.7) th/mm3 Lymph # (Auto) (1.0-4.8) th/mm3 Rice # (Auto) (0.0-0.9) th/mm3 Eos # (Auto) (0.0-0.4) th/mm3 Baso # (Auto) (0.0-0.2) th/mm3 WBC Differential Diff Scan Differential Comment Platelet Estimate (Normal) Platelet Morphology (Normal) RBC Morphology (Normal) PT (9.8-11.6) sec INR Ratio APTT (24.3-30.1) sec D-Dimer Quant (PE/DVT) (0.00-0.50) mg/L FEU Sodium (136-145) meq/L Potassium (3.5-5.1) meq/L Chloride (98-107) meq/L Carbon Dioxide (21.0-32.0) meq/L Anion Gap (5-15) meq/L BUN (7-18) mg/dL Creatinine (0.50-1.00) mg/dL Estimated GFR (>89) mL/min Random Glucose (74-106) mg/dL Calcium (8.5-10.1) mg/dL Magnesium (1.5-2.5) mg/dL Total Bilirubin (0.2-1.0) mg/dL AST (15-37) U/L ALT (10-53) U/L Alkaline Phosphatase (45-117) U/L Ammonia Less than 10 L (11-32) mcmol/L Total Creatine Kinase 60 54 (26-192) U/L Troponin I Less than 0.02 L Less than 0.02 L (0.02-0.05) ng/mL B-Natriuretic Peptide (0-100) pg/mL Total Protein (6.4-8.2) g/dL Albumin (3.4-5.0) g/dL Lipase (73-393) U/L Urine Color (Yellw/Straw) Urine Clarity (Clear) Urine pH (5.0-8.5) Ur Specific [place] (1.002-1.035) Urine Protein (Neg-Trace) mg/dL Urine Glucose (UA) (Negative) mg/dL Urine Ketones (Negative) mg/dL Urine Occult Blood (Negative) Urine Nitrate (Negative) Urine Bilirubin (Negative) Urine Urobilinogen (Less than 2) mg/dL Ur Leukocyte Esterase (Negative) Urine WBC (0-5) /hpf Ur Squamous Epith Cells (0-5) /hpf Micro UA Comment Urine Culture Comments Serum Alcohol (0-5) mg/dL Imaging Data Radiologist's impression: Myocardial Perfusion Scan Nuc Med 11/06/17 00:00 CONCLUSION: 1. Mild, septal hypokinesis. Preserved ejection fraction of 56%. 2. No scintigraphic findings of ischemia. Chest X-Ray 11/06/17 01:23 CONCLUSION: Hyperinflation without acute cardiopulmonary disease Chest CTA 11/06/17 02:45 CONCLUSION: 1. No evidence for pulmonary embolism. 2. Mild emphysema and patchy densities in the right upper lobe and right lower lobe. This could be infectious or inflammatory. ECG Data Attestation: I personally reviewed and interpreted this ECG as follows: Interpretation: The patient had a EKG done on arrival that shows a sinus rhythm heart rate of 90, QRS duration is 90 ms, QTC [address] segment elevation. T waves are inverted in V1 and V2. Discharge Plan Discharge Disposition Patient Disposition: 30 Still Patient Physicians Team ED Provider: Sofia Perez Primary Care Provider: Primary Care Svetlana,Jemma Attending Provider: Abimael Rich Other Providers: [facility],Insurance ; Anthony Burris Status ED Status: Left Department Discharge Information Discharge Date/Time: 11/06/17 05:20
[2017-11-06 03:55] LABS: Bilirubin,Urine Negative (Negative); Clarity,Urine Clear (Clear); Color,Urine Straw (Yellw/Straw); Glucose,Urine (UA) Negative (Negative); Leukocyte Esterase,Urine Negative (Negative); Nitrite,Urine Negative (Negative); Specific Gravity,Urine 1.006 (1.002-1.035); Squamous Epithelial Cell,Urine 1 /hpf (0-5)
--- NOTE | 2017-11-06 04:05 | CT ---
EXAM DATE: 11/06/2017 3:17 AM EDT AGE/SEX: 67 years / Female INDICATIONS: Dyspnea; rule out pulmonary embolus. CLINICAL DATA: This is the patient's initial encounter. Patient reports that signs and symptoms have been present for 1 day and indicates a pain score of 0/10. MEDICAL/SURGICAL HISTORY: Hypertension. None. RADIATION DOSE: 7.85 CTDI (mGy) COMPARISON: [facility], CT CHEST W CONTRAST, 10/13/2017. . TECHNIQUE: Volumetric scanning was performed using a multi-row detector CT scanner during bolus infu minesh of 76 ml Omnipaque 350 (iohexol) nonionic water-soluble contrast as a single exam dose. The lisbeth a was post processed with a variety of visualization algorithms including full volume maximum intensi ty projection and sliding thin slab reformation. Using automated exposure control and adjustment of t he mA and/or kV according to patient size, radiation dose was kept as low as reasonably achievable to obtain optimal diagnostic quality images. DICOM format image data is available electronically for r eview and comparison. FINDINGS: Pulmonary Arteries: No filling defects are seen in the pulmonary arteries out to the subsegmental ve ssels. The left and right pulmonary arteries are normal in diameter. Lung: Patchy densities right upper lobe and right lower lobe. Minimal densities in the right middle lobe laterally. Mild emphysema. Biapical scarring. Effusion: None. Mediastinum: No evidence of mediastinal or hilar adenopathy. Other: The axilla is unremarkable. CONCLUSION: 1. No evidence for pulmonary embolism. 2. Mild emphysema and patchy densities in the right upper lobe and right lower lobe. This could be i nfectious or inflammatory. Electronically signed by: Tyler Seymour MD 11/06/2017 4:04 AM EDT
[2017-11-06] MEDS ORDERED: Azithromycin Inj 500 MG in Sodium Chlor 0.9% Inj 250 ML IV.SIG STA (04:14)
[2017-11-06] MEDS ORDERED: Temazepam 15 MG Capsule PO PRN (04:35)
[2017-11-06] MEDS ORDERED: Acetaminophen 325 MG Tablet PO PRN (04:35)
[2017-11-06] MEDS ORDERED: LORazepam 1 MG Tablet PO PRN (04:58)
[2017-11-06] MEDS ORDERED: Haloperidol Inj 5 MG/ML Ampul IV.PUSH PRN (04:58)
--- NOTE | 2017-11-06 05:19 | P.HP ---
History of Present Illness Service: [facility] Primary Care Physician: No Primary Care Physician History of Present Illness: 67-year-old female with a past medical history significant for COPD, hyperlipidemia and hypertension presents to the emergency department for evaluation of chest pain and shortness of breath. The patient states that when she went to bed she felt a pressure in the center of her chest that was substernal and nonradiating. She also states she felt as though she "just could not breathe." She reports that she intermittently wears home oxygen which was prescribed to her during her last hospitalization on 10/13/17 where she was diagnosed and treated for pneumonia. The patient does not remember being in the hospital a month ago nor does she remember how she got her oxygen. She states she wears it only to sleep and only sometimes. Her breath smells of alcohol. She cannot tell me when the last time she saw a doctor was but can tell me that she went to [employer] yesterday. She is alert to person, place and time. 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 - Medical History Medical History: Medical History (Last Reviewed 11/06/17 @ 02:39 by Sofia Perez MD) Patient denies medical problems Breathing problem HTN (hypertension) High cholesterol - Surgical History Surgical History: Surgical History (Last Reviewed 11/06/17 @ 02:39 by Sofia Perez MD) H/O tubal ligation (Acute) - Family History Family History: Family History (Last Updated 11/06/17 @ 05:05 by Angelika Davila MD) Other Family history normal - Tobacco History Second Hand Smoke Exposure: No Tobacco Use In Past 30 Days: Yes Smoking Status: Current every day smoker Tobacco Type: Cigarettes Packs Per Day: 1.5 Cigarettes Per Day: 30.0 - Alcohol History How Often Do You Have a Drink Containing Alcohol: 2 to 3 times a week - Substance Use History Substance History: No History of Abuse - Immunization History Tetanus Immunization: Unsure Hx Influenza Vaccine This Season: No Medications and Allergies Active Medications: Active Medications Acetaminophen (Tylenol) 650 mg PO Q4H PRN PRN Reason: Temp > 100.4 Albuterol (Duoneb Neb (Marge)) 1 ampul NEB Q4HR NEB MARGE Flumazenil (Romazecon Inj) 0.2 mg IV.PUSH Q1M PRN PRN Reason: OVERSEDATION Folic Acid (Folic Acid) 1 mg PO DAILY MARGE Stop: 11/11/17 08:59 Haloperidol Lactate (Haldol Inj) 1 mg IV.PUSH Q15M PRN PRN Reason: for severe agitation Azithromycin 500 mg/ Sodium (Chloride) 250 mls @ 250 mls/hr IV.SIG STAT STA Stop: 11/06/17 05:13 Lorazepam (Ativan) 1 mg PO Q4H PRN PRN Reason: for CIWA 8-10 Lorazepam (Ativan) 2 mg PO Q2H PRN PRN Reason: for CIWA 11-14 Lorazepam (Ativan Inj) 2 mg IV.PUSH Q2H PRN PRN Reason: for CIWA 11-14 Ondansetron HCl (Zofran Inj) 4 mg IV.PUSH Q6H PRN PRN Reason: NAUSEA OR VOMITING Prednisone (Deltasone) 40 mg PO DAILY MARGE Sodium Chloride (Ns Flush) 2 ml IV.FLUSH UNSCH PRN PRN Reason: FLUSH AFTER USING IV ACCESS Last Admin: 11/06/17 04:37 Dose: 2 ml Temazepam (Restoril) 15 mg PO HS PRN PRN Reason: INSOMNIA Allergies Allergy/AdvReac Type Severity Reaction Status Date / Time No Known Allergies Allergy Verified 11/06/17 01:21 Home Medications Medication Instructions Recorded Confirmed Type No Known Home Medications 10/13/17 11/06/17 History Exam Vital signs: Vital Signs 11/06/17 01:11 11/06/17 02:00 11/06/17 04:00 Temperature 98.1 F Pulse Rate 99 H 81 120 H Respiratory Rate 24 22 20 Blood Pressure 160/88 H 149/90 H 127/66 Pulse Oximetry 96 94 L 96 Intake & Output 11/05/17 11/05/17 11/06/17 06:59 18:59 06:59 Weight 63.503 kg Narrative: Gen.: No acute distress Head: Normocephalic. Atraumatic. EENT: Pupils equal round and reactive to light. Nose without drainage. Airway intact. Throat without injection. Cardiovascular: Regular rate and rhythm. No murmurs, rubs or gallops. Respiratory: Poor air movement right greater than left. No wheezes or rhonchi. Abdomen: Soft, nontender, nondistended. No peritoneal signs. Musculoskeletal: No gross deformities. No edema. Skin: No obvious rashes or erythema. Neuro: Sensory and motor grossly intact. Cranial nerves II through XII grossly intact. Alert and oriented 3. Results - Labs CBC & Chem 7: 11/06/17 01:30 11/06/17 01:30 Labs: Laboratory Results - last 24 hr 11/06/17 11/06/17 11/06/17 01:30 01:30 01:30 WBC 5.3 RBC 3.79 L Hgb 12.9 Hct 35.8 MCV 94.5 MCH 34.0 MCHC 36.0 RDW 15.5 Plt Count 222 D MPV 7.2 Prelim Diff (Auto) Slide review pending Neut % (Auto) 54.4 Lymph % (Auto) 35.2 [place] % (Auto) 6.1 Eos % (Auto) 2.8 Baso % (Auto) 1.5 Neut # (Auto) 2.9 Lymph # (Auto) 1.9 [place] # (Auto) 0.3 Eos # (Auto) 0.2 Baso # (Auto) 0.1 WBC Differential . Diff Scan Auto diff confirmed Differential Comment . Platelet Estimate Normal Platelet Morphology Normal RBC Morphology Normal PT 9.9 INR 1.0 APTT 27.3 D-Dimer Quant (PE/DVT) 0.53 H Sodium Potassium Chloride Carbon Dioxide Anion Gap BUN Creatinine Estimated GFR Random Glucose Calcium Magnesium Total Bilirubin AST ALT Alkaline Phosphatase Total Creatine Kinase Troponin I B-Natriuretic Peptide 31 Total Protein Albumin Lipase Urine Color Urine Clarity Urine pH Ur Specific [place] Urine Protein Urine Glucose (UA) Urine Ketones Urine Occult Blood Urine Nitrate Urine Bilirubin Urine Urobilinogen Ur Leukocyte Esterase Urine WBC Ur Squamous Epith Cells Micro UA Comment Urine Culture Comments 11/06/17 11/06/17 01:30 03:30 WBC RBC Hgb Hct MCV MCH MCHC RDW Plt Count MPV Prelim Diff (Auto) Neut % (Auto) Lymph % (Auto) [place] % (Auto) Eos % (Auto) Baso % (Auto) Neut # (Auto) Lymph # (Auto) [place] # (Auto) Eos # (Auto) Baso # (Auto) WBC Differential Diff Scan Differential Comment Platelet Estimate Platelet Morphology RBC Morphology PT INR APTT D-Dimer Quant (PE/DVT) Sodium 134 L Potassium 3.4 L Chloride 97 L Carbon Dioxide 24.8 Anion Gap 12 BUN 2 L Creatinine 0.52 Estimated GFR Greater than 89 Random Glucose 93 Calcium 8.0 L Magnesium 2.0 Total Bilirubin 0.5 AST 34 ALT 34 Alkaline Phosphatase 124 H Total Creatine Kinase 57 Troponin I Less than 0.02 L B-Natriuretic Peptide Total Protein 6.1 L Albumin 3.0 L Lipase 311 Urine Color Straw Urine Clarity Clear Urine pH 5.0 Ur Specific [place] 1.006 Urine Protein Negative Urine Glucose (UA) Negative Urine Ketones Negative Urine Occult Blood Negative Urine Nitrate Negative Urine Bilirubin Negative Urine Urobilinogen Less than 2 Ur Leukocyte Esterase Negative Urine WBC Less than 1 Ur Squamous Epith Cells 1 Micro UA Comment Culture not ind Urine Culture Comments Culture not ind - Imaging Impressions Chest X-Ray 11/06/17 01:23 CONCLUSION: Hyperinflation without acute cardiopulmonary disease Chest CTA 11/06/17 02:45 CONCLUSION: 1. No evidence for pulmonary embolism. 2. Mild emphysema and patchy densities in the right upper lobe and right lower lobe. This could be infectious or inflammatory. Caprini VTE Risk Assessment Caprini VTE Risk Assessment: Moderate/High Risk (score >= 2) Caprini Risk Assessment Model: Point Value = 1 Point Value = 2 Point Value = 3 Point Value = 5 Age 41-60 Minor surgery BMI > 25 kg/m2 Swollen legs Varicose veins or History of unexplained or recurrent spontaneous Oral contraceptives or hormone replacement Sepsis (< 1 month) Serious lung disease, including pneumonia (< 1 month) Abnormal pulmonary function Acute myocardial infarction Congestive heart failure (< 1 month) History of inflammatory bowel disease Medical patient at bed rest Age 61-74 Arthroscopic surgery Major open surgery (> 45 min) Laparoscopic surgery (> 45 min) Malignancy Confined to bed (> 72 hours) Immobilizing plaster cast Central venous access Age >= 75 History of VTE Family history of VTE Factor V Leiden Prothrombin [id number] Lupus anticoagulant Anticardiolipin antibodies Elevated serum homocysteine Heparin-induced thrombocytopenia Other congenital or acquired thrombophilia Stroke (< 1 month) Elective arthroplasty Hip, pelvis, or leg fracture Acute spinal cord injury (< 1 month) Prophylaxis Regimen: Total Risk Factor Score Risk Level Prophylaxis Regimen 0-1 Low Early ambulation 2 Moderate Order ONE of the following: *Sequential Compression Device (SCD) *Heparin 5000 units SQ BID 3-4 Higher Order ONE of the following medications: *Heparin 5000 units SQ TID *Enoxaparin/Lovenox 40 mg SQ daily (WT < 150 kg, CrCl > 30 mL/min) *Enoxaparin/Lovenox 30 mg SQ daily (WT < 150 kg, CrCl > 10-29 mL/min) *Enoxaparin/Lovenox 30 mg SQ BID (WT < 150 kg, CrCl > 30 mL/min) AND/OR *Sequential Compression Device (SCD) 5 or more Highest Order ONE of the following medications: *Heparin 5000 units SQ TID (Preferred with Epidurals) *Enoxaparin/Lovenox 40 mg SQ daily (WT < 150 kg, CrCl > 30 mL/min) *Enoxaparin/Lovenox 30 mg SQ daily (WT < 150 kg, CrCl > 10-29 mL/min) *Enoxaparin/Lovenox 30 mg SQ BID (WT < 150 kg, CrCl > 30 mL/min) AND *Sequential Compression Device (SCD) Assessment and Plan - Plan Assessment/plan: 1. Shortness of breath Likely COPD exacerbation Cannot rule out cardiac origin Duo nebs P.o. prednisone Supplemental oxygen as needed CT chest reviewed, appears improved from previous, likely inflammatory and noninfectious 2. Chest pain Resolved Initial troponin negative EKG reviewed, no ST segment elevation or depression ACS rule out pending; serial troponins/EKGs 3. Altered mental status Patient's baseline unclear Alcohol level pending as patient abuses alcohol Ammonia level pending 4. Alcohol abuse [facility] protocol Thiamine/folate/multivitamin Monitor for signs of withdrawal FEN NPO Electrolytes: monitor and replete prn Heparin NS + 20 KCl at 70 cc/hr
[2017-11-06 07:59] LABS: Creatine Kinase 60 U/L (26-192)
[2017-11-06] MEDS: Folic Acid 1 MG Tablet PO SCH (09:55)
[2017-11-06] MEDS: Heparin - SQ 10,000 UNITS/ML Vial SQ SCH ×2 (09:55→22:07)
[2017-11-06] MEDS: Multivitamin/Minerals Therapeutic Tablet PO SCH (09:55)
[2017-11-06] MEDS: predniSONE 20 MG Tablet PO SCH (09:55)
--- NOTE | 2017-11-06 12:58 | P.PN ---
Subjective Interval history: Follow up for chest pain, COPD exacerbation. The patient reports feeling better today. Denies any further chest pain. She has some shortness of breath and nonproductive cough. Denies fevers/chills. Still with wheezing on exam. Denies any lower extremity edema. Denies any other medical complaints. RN reports the patient's family is requesting psychiatry evaluation. Reportedly the patient's son committed suicide via gun 6months ago. The patient's family is concerned that the patient is very depressed. Physical Exam Vital signs: Vital Signs 11/06/17 01:11 11/06/17 02:00 11/06/17 04:00 Temperature 98.1 F Pulse Rate 99 H 81 120 H Respiratory Rate 24 22 20 Blood Pressure 160/88 H 149/90 H 127/66 Pulse Oximetry 96 94 L 96 11/06/17 05:20 11/06/17 05:58 11/06/17 06:12 Temperature 98.0 F Pulse Rate 102 H 109 H Respiratory Rate 20 18 Blood Pressure 122/82 116/71 Pulse Oximetry 100 94 L 11/06/17 08:00 11/06/17 08:41 11/06/17 11:36 Temperature 99.3 F 99.2 F Pulse Rate 106 H 102 H 107 H Respiratory Rate 16 20 12 Blood Pressure 145/93 H 179/105 H Pulse Oximetry 93 L 95 93 L Intake & Output 11/05/17 11/06/17 11/06/17 18:59 06:59 18:59 Intake Total 350 / 350 Balance 350 / 350 Weight 63.503 kg Intake: IV 350 / 350 Azithromycin Inj 500 MG In NS 250 / 250 Inj 250 ML @ 250 mls/hr IV.SIG STAT STA Rx#:[id number] Maxipime Inj 2,000 MG In NS Inj 100 / 100 100 ML @ 200 mls/hr IV.SIG STAT STA Rx#:[id number] Other: # Voids 3 Narrative: GENERAL: Well-nourished, well-developed female patient in NAD. SKIN: Warm and dry. No rash. HEENT: Normocephalic. Atraumatic. Pupils equal and round. Mucous membranes pink and moist. NECK: Supple. Trachea midline. CARDIOVASCULAR: Regular rate and rhythm. No murmur appreciated. RESPIRATORY: No accessory muscle use. Minimal expiratory wheezing. Breath sounds equal bilaterally. GASTROINTESTINAL: Abdomen soft, non-tender, nondistended. Normoactive bowel sounds x4. MUSCULOSKELETAL: No obvious deformities. Extremities without clubbing, cyanosis , or edema. NEUROLOGICAL: Awake and alert. No obvious cranial nerve deficits. Motor grossly within normal limits. Moving all extremities spontaneously. Normal speech. PSYCHIATRIC: Odd mood. Results - Labs CBC & Chem 7: 11/06/17 01:30 11/06/17 01:30 Laboratory Results - last 24 hr 11/06/17 11/06/17 11/06/17 01:30 01:30 01:30 WBC 5.3 RBC 3.79 L Hgb 12.9 Hct 35.8 MCV 94.5 MCH 34.0 MCHC 36.0 RDW 15.5 Plt Count 222 D MPV 7.2 Prelim Diff (Auto) Slide review pending Neut % (Auto) 54.4 Lymph % (Auto) 35.2 [place] % (Auto) 6.1 Eos % (Auto) 2.8 Baso % (Auto) 1.5 Neut # (Auto) 2.9 Lymph # (Auto) 1.9 [place] # (Auto) 0.3 Eos # (Auto) 0.2 Baso # (Auto) 0.1 WBC Differential . Diff Scan Auto diff confirmed Differential Comment . Platelet Estimate Normal Platelet Morphology Normal RBC Morphology Normal PT 9.9 INR 1.0 APTT 27.3 D-Dimer Quant (PE/DVT) 0.53 H Sodium Potassium Chloride Carbon Dioxide Anion Gap BUN Creatinine Estimated GFR Random Glucose Calcium Magnesium Total Bilirubin AST ALT Alkaline Phosphatase Ammonia Total Creatine Kinase Troponin I B-Natriuretic Peptide 31 Total Protein Albumin Lipase Urine Color Urine Clarity Urine pH Ur Specific [place] Urine Protein Urine Glucose (UA) Urine Ketones Urine Occult Blood Urine Nitrate Urine Bilirubin Urine Urobilinogen Ur Leukocyte Esterase Urine WBC Ur Squamous Epith Cells Micro UA Comment Urine Culture Comments Serum Alcohol 11/06/17 11/06/17 11/06/17 01:30 01:30 03:30 WBC RBC Hgb Hct MCV MCH MCHC RDW Plt Count MPV Prelim Diff (Auto) Neut % (Auto) Lymph % (Auto) [place] % (Auto) Eos % (Auto) Baso % (Auto) Neut # (Auto) Lymph # (Auto) [place] # (Auto) Eos # (Auto) Baso # (Auto) WBC Differential Diff Scan Differential Comment Platelet Estimate Platelet Morphology RBC Morphology PT INR APTT D-Dimer Quant (PE/DVT) Sodium 134 L Potassium 3.4 L Chloride 97 L Carbon Dioxide 24.8 Anion Gap 12 BUN 2 L Creatinine 0.52 Estimated GFR Greater than 89 Random Glucose 93 Calcium 8.0 L Magnesium 2.0 Total Bilirubin 0.5 AST 34 ALT 34 Alkaline Phosphatase 124 H Ammonia Total Creatine Kinase 57 Troponin I Less than 0.02 L B-Natriuretic Peptide Total Protein 6.1 L Albumin 3.0 L Lipase 311 Urine Color Straw Urine Clarity Clear Urine pH 5.0 Ur Specific [place] 1.006 Urine Protein Negative Urine Glucose (UA) Negative Urine Ketones Negative Urine Occult Blood Negative Urine Nitrate Negative Urine Bilirubin Negative Urine Urobilinogen Less than 2 Ur Leukocyte Esterase Negative Urine WBC Less than 1 Ur Squamous Epith Cells 1 Micro UA Comment Culture not ind Urine Culture Comments Culture not ind Serum Alcohol 124 H 11/06/17 11/06/17 05:10 06:40 WBC RBC Hgb Hct MCV MCH MCHC RDW Plt Count MPV Prelim Diff (Auto) Neut % (Auto) Lymph % (Auto) [place] % (Auto) Eos % (Auto) Baso % (Auto) Neut # (Auto) Lymph # (Auto) [place] # (Auto) Eos # (Auto) Baso # (Auto) WBC Differential Diff Scan Differential Comment Platelet Estimate Platelet Morphology RBC Morphology PT INR APTT D-Dimer Quant (PE/DVT) Sodium Potassium Chloride Carbon Dioxide Anion Gap BUN Creatinine Estimated GFR Random Glucose Calcium Magnesium Total Bilirubin AST ALT Alkaline Phosphatase Ammonia Less than 10 L Total Creatine Kinase 60 Troponin I Less than 0.02 L B-Natriuretic Peptide Total Protein Albumin Lipase Urine Color Urine Clarity Urine pH Ur Specific [place] Urine Protein Urine Glucose (UA) Urine Ketones Urine Occult Blood Urine Nitrate Urine Bilirubin Urine Urobilinogen Ur Leukocyte Esterase Urine WBC Ur Squamous Epith Cells Micro UA Comment Urine Culture Comments Serum Alcohol - Imaging Impressions Chest X-Ray 11/06/17 01:23 CONCLUSION: Hyperinflation without acute cardiopulmonary disease Chest CTA 11/06/17 02:45 CONCLUSION: 1. No evidence for pulmonary embolism. 2. Mild emphysema and patchy densities in the right upper lobe and right lower lobe. This could be infectious or inflammatory. Assessment and Plan - Plan 67-year-old female with a past medical history significant for COPD, hyperlipidemia and hypertension presents to the emergency department for evaluation of chest pain and shortness of breath. Acute COPD Exacerbation: patient with +SOB/nonproductive cough. Afebrile, no leukocytosis -CXR reviewed and unremarkable -Chest CTA with no PE, mild emphysema and patchy densities in the right upper lobe and right lower lobe. This could be infectious or inflammatory. -Continue duonebs q6h -Continue steroids with prednisone 40mg daily -O2 as needed Chest pain: currently resolved. Denies any cardiac history. Reports walking treadmill stress test many years ago. -ACS ruled out with negative serial cardiac enzymes x3 and EKG without acute ischemic changes -Monitor on telemetry -Check nuclear stress test. Altered mental status/Encephalopathy: Patient's baseline unclear. -Suspect secondary to alcohol intoxication as etoh level 124 -Ammonia wnl -Consult psychiatry as patient's family worried she is depressed after the traumatic loss of her son 6months ago Alcohol abuse: chronic -counseled on cessation -Continue [facility] protocol -Thiamine/folate/multivitamin -Monitor for signs of withdrawal Hyponatremia/Hypokalemia: mild. Na 134, K 3.4. -give NS and KCl replacement -repeat labs in am, replace electrolytes as needed Tobacco Use: chronic, patient continues to smoke -counseled on cessation DVT Prophylaxis: Heparin sq Discharge Planning: Discharge pending further clinical improvement of COPD exacerbation, and if cleared by psychiatry. Likely discharge tomorrow 11/07.
[2017-11-06 14:23] LABS: Creatine Kinase 54 U/L (26-192)
[2017-11-06] MEDS ORDERED: Regadenoson Inj 0.4 MG/5 ML Syringe IV.PUSH ONE (15:04)
--- NOTE | 2017-11-06 16:35 | ECG ---
Date Performed: 11/06/2017 Time Performed: 01:07:24 PTAGE: 67 years EKG: Sinus rhythm POSSIBLE LEFT ATRIAL ENLARGEMENT BORDERLINE ECG Since the PREVIOUS TRACING , no significant change noted PREVIOUS TRACIN10/13/2017 12.40 DOCTOR: Ann Solorzano Interpretating Date/Time 11/06/2017 16:34:53
--- NOTE | 2017-11-06 16:50 | NM ---
EXAM DATE: 11/06/2017 4:45 PM EDT AGE/SEX: 67 years / Female INDICATIONS:Angina. . Chest pain with alcohol abuse. CLINICAL DATA: This is the patient's initial encounter. Patient reports that signs and symptoms have been present for 1 day and indicates a pain score of 0/10. MEDICAL/SURGICAL HISTORY: Chronic obstructive pulmonary disease. Hypertension. Tubal ligation. COMPARISON: No prior exams available for comparison. DOSE: 8.8 mCi Tc 99m Myoview at rest 25.7 mCi [id number] at stress 0.4 mg Lexiscan STRESS SYMPTOMS: None noted. EJECTION FRACTION: 56 % TECHNIQUE: The patient underwent pharmacologic stress with infusion of prescribed dose. Continuous ECG tracing was monitored during stress. Gated SPECT imaging was performed after stress and conventi onal SPECT imaging was performed at rest. The examination was performed on a SPECT/CT scanner, both attenuation and non-corrected datasets were reviewed. FINDINGS: Distribution: The maximum perfused segment at stress is in the anterolateral wall. Perfusion Study: The pattern of perfusion at stress is within normal limits. Gated Study: Septal hypokinesis. Wall motion is otherwise intact. The ejection fraction is calculat ed at 56%. RISK CATEGORY: Low (<1% Annual Motality Rate) CONCLUSION: 1. Mild, septal hypokinesis. Preserved ejection fraction of 56%. 2. No scintigraphic findings of ischemia. Electronically signed by: Hayden Aguirre MD 11/06/2017 4:48 PM EDT
[2017-11-07 08:25] VITALS: RESP 16
[2017-11-07] MEDS: predniSONE 20 MG Tablet PO SCH (08:49)
[2017-11-07] MEDS: Folic Acid 1 MG Tablet PO SCH (08:49)
[2017-11-07] MEDS: Multivitamin/Minerals Therapeutic Tablet PO SCH (08:50)
[2017-11-07] MEDS: Heparin - SQ 10,000 UNITS/ML Vial SQ SCH (08:50)
[2017-11-07 11:46] LABS: Calcium 8.5 mg/dL (8.5-10.1); Carbon Dioxide 27.6 meq/L (21.0-32.0); Magnesium 2.2 mg/dL (1.5-2.5); Phosphorus 1.9 mg/dL (2.5-4.9)
[2017-11-07 11:47] LABS: Potassium 4.6 meq/L (3.5-5.1)
--- NOTE | 2017-11-07 14:10 | P.PN ---
Subjective Interval history: Patient is seen sitting up in bed. She tells me that she is feeling well; she did speak with psychiatry and agrees that she would like their assistance. She denies any chest pain or shortness of breath. Denies any nausea vomiting or diarrhea. Tolerating meals without difficulty. Normal bowel movements and urination. Physical Exam Vital signs: Vital Signs 11/06/17 16:00 11/06/17 16:17 11/06/17 16:50 Temperature 99.4 F Pulse Rate 107 H 92 H 124 H Respiratory Rate 17 16 Blood Pressure 144/65 H Pulse Oximetry 93 L 11/06/17 19:35 11/06/17 21:18 11/06/17 23:30 Temperature Pulse Rate 93 H 99 H 108 H Respiratory Rate 18 Blood Pressure Pulse Oximetry 97 11/07/17 00:00 11/07/17 02:54 11/07/17 04:00 Temperature 99.4 F Pulse Rate 107 H 103 H 93 H Respiratory Rate 17 20 Blood Pressure 144/65 H Pulse Oximetry 93 L 11/07/17 06:50 11/07/17 07:26 11/07/17 08:00 Temperature 98.0 F Pulse Rate 91 H 104 H 109 H Respiratory Rate 15 20 16 Blood Pressure 150/71 H 167/81 H Pulse Oximetry 95 94 L 94 L 11/07/17 08:43 Temperature Pulse Rate 106 H Respiratory Rate Blood Pressure Pulse Oximetry 99 Intake & Output 11/06/17 11/07/17 11/07/17 18:59 06:59 18:59 Intake Total 1000 / 1000 916 / 916 Balance 1000 / 1000 916 / 916 Intake: IV 1000 / 1000 916 / 916 NS + KCl 20 mEq Inj 1,000 ML @ 1000 / 1000 916 / 916 70 mls/hr IV.CONT .[id number] [facility] Rx#:[id number] Other: # Voids 2 Date of Last Bowel Movement 11/06/17 11/07/17 Narrative: GENERAL: Well-nourished, well-developed female patient in NAD. SKIN: Warm and dry. No rash. HEENT: Normocephalic. Atraumatic. NECK: Supple. Trachea midline. CARDIOVASCULAR: Regular rate and rhythm. No murmur appreciated. RESPIRATORY: No accessory muscle use. Minimal expiratory wheezing. Breath sounds equal bilaterally. GASTROINTESTINAL: Abdomen soft, non-tender, nondistended. Normoactive bowel sounds x4. MUSCULOSKELETAL: No obvious deformities. Extremities without clubbing, cyanosis , or edema. NEUROLOGICAL: Awake and alert. No obvious cranial nerve deficits. Motor grossly within normal limits. Moving all extremities spontaneously. Normal speech. PSYCHIATRIC: Depressed. Results - Labs CBC & Chem 7: 11/06/17 01:30 11/07/17 10:44 Laboratory Results - last 24 hr 11/06/17 11/07/17 13:00 10:44 Sodium 137 Potassium 4.6 D Chloride 103 Carbon Dioxide 27.6 Anion Gap 6 BUN 6 L Creatinine 0.79 Estimated GFR 73 L Random Glucose 164 H Calcium 8.5 Phosphorus 1.9 L Magnesium 2.2 Total Creatine Kinase 54 Troponin I Less than 0.02 L Microbiology 11/06/17 04:35 Blood - Peripheral Aerobic Blood Culture - Preliminary No growth in 1 day 11/06/17 04:35 Blood - Peripheral Anaerobic Blood Culture - Preliminary No growth in 1 day 11/06/17 04:30 Blood - Peripheral Aerobic Blood Culture - Preliminary No growth in 1 day 11/06/17 04:30 Blood - Peripheral Anaerobic Blood Culture - Preliminary No growth in 1 day - Imaging Impressions Myocardial Perfusion Scan Nuc Med 11/06/17 00:00 CONCLUSION: 1. Mild, septal hypokinesis. Preserved ejection fraction of 56%. 2. No scintigraphic findings of ischemia. Assessment and Plan - Plan 67-year-old female with a past medical history significant for COPD, hyperlipidemia and hypertension presents to the emergency department for evaluation of chest pain and shortness of breath. Acute COPD Exacerbation: patient with +SOB/nonproductive cough. Afebrile, no leukocytosis -CXR reviewed and unremarkable -Chest CTA with no PE, mild emphysema and patchy densities in the right upper lobe and right lower lobe. This could be infectious or inflammatory. -Continue duonebs q6h -Continue steroids with prednisone 40mg daily (x 5 days) -O2 as needed Chest pain: currently resolved. Denies any cardiac history. Reports walking treadmill stress test many years ago. -ACS ruled out with negative serial cardiac enzymes x3 and EKG without acute ischemic changes -Monitor on telemetry -Check nuclear stress test. Altered mental status/Encephalopathy: Patient's baseline unclear. -Suspect secondary to alcohol intoxication as etoh level 124 -Ammonia wnl -Consult psychiatry as patient's family worried she is depressed after the traumatic loss of her son 6months ago Alcohol abuse: chronic -counseled on cessation -Continue [facility] protocol -Thiamine/folate/multivitamin -Monitor for signs of withdrawal Hyponatremia/Hypokalemia: mild. Na 134, K 3.4. -give NS and KCl replacement -Labs WNL 11/07 Tobacco Use: chronic, patient continues to smoke -counseled on cessation DVT Prophylaxis: Heparin sq Discharge Planning: Medically stable. Discharged to inpatient psych.
--- NOTE | 2017-11-07 14:28 | P.DS ---
Date of admission: 11/06/17 04:27 Primary care physician: No Primary Care Physician Attending physician on discharge: Abimael Rich Anticipated date of discharge: 11/07/17 Brief History from admission: 67-year-old female with a past medical history significant for COPD, hyperlipidemia and hypertension presents to the emergency department for evaluation of chest pain and shortness of breath. The patient states that when she went to bed she felt a pressure in the center of her chest that was substernal and nonradiating. She also states she felt as though she "just could not breathe." She reports that she intermittently wears home oxygen which was prescribed to her during her last hospitalization on 10/13/17 where she was diagnosed and treated for pneumonia. The patient does not remember being in the hospital a month ago nor does she remember how she got her oxygen. She states she wears it only to sleep and only sometimes. Her breath smells of alcohol. She cannot tell me when the last time she saw a doctor was but can tell me that she went to [facility] yesterday. She is alert to person, place and time. DS: Diagnosis - Discharge Diagnosis (1) Inflammation of lung Status: Acute (2) Depression Status: Acute (3) PNA (pneumonia) Status: Resolved DS: Summary Hospital Course: 67-year-old female with a past medical history of COPD, hyperlipidemia and hypertension who is admitted via the emergency room with a complaint of chest pain and shortness of breath. Pain was described as pressure in the center of her chest; nonradiating. Also complained of feeling like she just could not breathe. She does wear O2 as needed at home. Was recently hospitalized 10/13/17 for pneumonia. EtOH elevated upon arrival. Patient recently lost her son to suicide about 6 months ago. Her family has expressed concerned about her being depressed. She was evaluated by psychiatry and agrees to inpatient follow-up with them. Chest x-ray indicated hyperinflation without acute cardiopulmonary disease. Chest CTA showed no evidence for pulmonary embolism. There was some mild emphysema and patchy densities in the right upper and right lower lobes which were thought to be infectious versus inflammatory. Patient was started on prednisone 40 mg as causes most likely inflammatory. ACS ruled out with negative enzymes and EKG without acute ischemic changes. Patient did experience mild hyponatremia and hypokalemia which resolved with NS and KCl replacement.. - Time Spent with Patient Total time spent providing and/or coordinating discharge services: Less than 30 minutes - Quality: VTE Deep Vein Thrombosis/Pulmonary Embolism Present on Admission: No Exam Vital signs: Vital Signs 11/06/17 16:00 11/06/17 16:17 11/06/17 16:50 Temperature 99.4 F Pulse Rate 107 H 92 H 124 H Respiratory Rate 17 16 Blood Pressure 144/65 H Pulse Oximetry 93 L 11/06/17 19:35 11/06/17 21:18 11/06/17 23:30 Temperature Pulse Rate 93 H 99 H 108 H Respiratory Rate 18 Blood Pressure Pulse Oximetry 97 11/07/17 00:00 11/07/17 02:54 11/07/17 04:00 Temperature 99.4 F Pulse Rate 107 H 103 H 93 H Respiratory Rate 17 20 Blood Pressure 144/65 H Pulse Oximetry 93 L 11/07/17 06:50 11/07/17 07:26 11/07/17 08:00 Temperature 98.0 F Pulse Rate 91 H 104 H 109 H Respiratory Rate 15 20 16 Blood Pressure 150/71 H 167/81 H Pulse Oximetry 95 94 L 94 L 11/07/17 08:43 Temperature Pulse Rate 106 H Respiratory Rate Blood Pressure Pulse Oximetry 99 Intake & Output 11/06/17 11/07/17 11/07/17 18:59 06:59 18:59 Intake Total 1000 / 1000 916 / 916 Balance 1000 / 1000 916 / 916 Intake: IV 1000 / 1000 916 / 916 NS + KCl 20 mEq Inj 1,000 ML @ 1000 / 1000 916 / 916 70 mls/hr IV.CONT .[id number] [facility] Rx#:[id number] Other: # Voids 2 Date of Last Bowel Movement 11/06/17 11/07/17 Narrative: GENERAL: Well-nourished, well-developed female patient in [facility]. SKIN: Warm and dry. No rash. HEENT: Normocephalic. Atraumatic. NECK: Supple. Trachea midline. CARDIOVASCULAR: Regular rate and rhythm. No murmur appreciated. RESPIRATORY: No accessory muscle use. Minimal expiratory wheezing. Breath sounds equal bilaterally. GASTROINTESTINAL: Abdomen soft, non-tender, nondistended. Normoactive bowel sounds x4. MUSCULOSKELETAL: No obvious deformities. Extremities without clubbing, cyanosis , or edema. NEUROLOGICAL: Awake and alert. No obvious cranial nerve deficits. Motor grossly within normal limits. Moving all extremities spontaneously. Normal speech. PSYCHIATRIC: Depressed. Results Procedures completed during hospitalization: CTA,ECG,cxr Labs on day of discharge: Labs from last 24 hours 11/07/17 11/06/17 10:44 13:00 Sodium 137 Potassium 4.6 D Chloride 103 Carbon Dioxide 27.6 Anion Gap 6 BUN 6 L Creatinine 0.79 Estimated GFR 73 L Random Glucose 164 H Calcium 8.5 Phosphorus 1.9 L Magnesium 2.2 Total Creatine Kinase 54 Troponin I Less than 0.02 L Preliminary micro results at discharge 11/06/17 04:35 Aerobic Blood Culture - Preliminary Blood - Peripheral No growth in 1 day Anaerobic Blood Culture - Preliminary No growth in 1 day 11/06/17 04:30 Aerobic Blood Culture - Preliminary Blood - Peripheral No growth in 1 day Anaerobic Blood Culture - Preliminary No growth in 1 day - Impressions ITS Impressions Myocardial Perfusion Scan Nuc Med 11/06/17 00:00 CONCLUSION: 1. Mild, septal hypokinesis. Preserved ejection fraction of 56%. 2. No scintigraphic findings of ischemia. Chest X-Ray 11/06/17 01:23 CONCLUSION: Hyperinflation without acute cardiopulmonary disease Chest CTA 11/06/17 02:45 CONCLUSION: 1. No evidence for pulmonary embolism. 2. Mild emphysema and patchy densities in the right upper lobe and right lower lobe. This could be infectious or inflammatory. Discharge Plan - Discharge Disposition Patient Disposition: 65 Disc To [facility] - Discharge Condition Condition: Stable - Discharge Order Discharge Orders: Discharge Order (Routine); Ordered 11/07/17 Ordered By: Dora Odom - Physicians Team Primary Care Provider: Primary Care Physici,No Attending Provider: Abimael Rich Other Providers: [email or web address],Insurance ; Anthony Burris MD
--- NOTE | 2017-11-07 14:43 | P.CONPSY ---
Provisional Diagnosis Admission Date: November 06, 2017 04:27 [place] I.: PTSD, major depressive disorder, recurrent, without psychotic features History of Present Illness Service: Medicine Primary Care Provider: No Primary Care Physician History of Present Illness: The patient is a 67-year-old woman, domiciled alone in [place], single, mother of 4 kids, with psychiatric history of depression, anxiety, alcohol use disorder, no previous psychiatric hospitalizations, no previous suicidal attempts, the patient was in Prozac 20 mg, Ambien 10 mg, Abilify 15 mg prescribed by PCP, with a past medical history significant for COPD, hyperlipidemia and hypertension presents to the emergency department for evaluation of chest pain and shortness of breath. She was on observation due to acute COPD Exacerbation: patient with +SOB/nonproductive cough. Consulted to psychiatry to address depression. EMR reviewed. Collateral information from patient's daughter Celena Rockwell was obtained. On psychiatric evaluation patient is calm, cooperative, tearful. She says that she has been depressed since her son committed suicide on March 12, 2018. She says that she found her son in the bathroom after shooting and self in his head. Since then, the patient has been feeling very depressed, with increased hopelessness, helplessness, pessimistic about the future, no enjoying life, is sleeping very poorly, with frequent nightmares and flashbacks of her son. She denies suicidal and homicidal ideation, she denies visual and auditory hallucinations. The patient states that she has been drinking alcohol in order to treat her depression and anxiety. She says that with alcohol she could not go to sleep at night. She denies the use of other drugs. Patient denies family psychiatric history. The patient is fully oriented 3, no attention deficit, no fluctuation of consciousness. PPH: Anxiety, alcohol use disorder, no previous psychiatric hospitalizations, no previous suicidal attempts, the patient was in Prozac 20 mg, Ambien 10 mg, Abilify 15 mg prescribed by PCP PMHx: COPD, hypertension, hyper lipid Substance history: The patient drinks alcohol every day. Denies the use of illegal drug Family psychiatric history: Father was an alcoholic Social history: The patient was born and raised in [facility], she lives inside [facility], single, mother of 4 kids, supported by Social Security Review of Systems Constitutional: Reports fatigue Respiratory: Reports cough, Reports shortness of breath Gastrointestinal: Denies abdominal pain, Denies belching, Denies black, tarry stools, Denies bloating, Denies bright, red blood in stools, Denies change in bowel habits, Denies constant urge to pass stool, Denies change in stools, Denies coffee ground vomit, Denies constipation, Denies cramping, Denies difficulty swallowing, Denies excessive passing of gas, Denies feeling full early, Denies heartburn, Denies incontinent of stools, Denies loose stools, Denies nausea, Denies pain with swallowing, Denies vomiting, Denies vomiting blood, Denies other Genitourinary: Denies abnormal periods, Denies abnormal vaginal bleeding, Denies absent period, Denies bleeding between periods, Denies blood in urine, Denies difficulty starting urination, Denies difficulty urinating, Denies dribbling after urination, Denies frequent nighttime urination, Denies genital itching, Denies genital lesions, Denies heavy periods, Denies hot flashes, Denies light periods, Denies nipple discharge, Denies painful intercourse, Denies painful periods, Denies painful urination, Denies pelvic pain, Denies prolapse symptoms, Denies sexual problems, Denies side pain, Denies urinary incontinence, Denies urinary urgency, Denies vaginal discharge, Denies vaginal dryness, Denies vaginal odor, Denies vaginal itching, Denies other Musculoskeletal: Denies abnormal walking, Denies back pain, Denies body aches, Denies decreased muscle mass, Denies deformity, Denies joint pain, Denies joint swelling, Denies limited joint movement, Denies loss of height, Denies muscle cramps, Denies muscle weakness, Denies neck pain, Denies numbness, Denies radiating pain into limb, Denies stiffness, Denies tingling, Denies other Neurologic: Denies abnormal hearing, Denies abnormal movements, Denies abnormal speech, Denies abnormal walking, Denies behavioral changes, Denies burning sensations, Denies confusion, Denies dizziness, Denies fainting, Denies frequent falls, Denies headache(s), Denies lack of coordination, Denies localized weakness, Denies loss of vision, Denies memory loss, Denies numbness, Denies other visual disturbances, Denies radiating pain, Denies restless legs, Denies convulsions, Denies seizure-like activity, Denies sensory deficit, Denies tingling, Denies tingling/numbness/burning sensations, Denies tremor(s), Denies unsteadiness, Denies weakness, Denies other Psychiatric: Reports behavioral changes, Reports change in appetite, Reports hopelessness, Reports irritability, Reports mood swings PMFSH - History History Provided By: Patient - Medical History Medical History: Medical History (Last Reviewed 11/07/17 @ 10:49 by Kalen Gil) Patient denies medical problems Breathing problem HTN (hypertension) High cholesterol - Surgical History Surgical History: Surgical History (Last Reviewed 11/07/17 @ 10:49 by Kalen Gil) H/O tubal ligation (Acute) - Family History Family History: Family History (Last Updated 11/06/17 @ 05:05 by Angelika Davila MD) Other Family history normal - Tobacco History Second Hand Smoke Exposure: Yes Tobacco Use In Past 30 Days: Yes Smoking Status: Current every day smoker Tobacco Type: Cigarettes Packs Per Day: 1.5 Cigarettes Per Day: 30.0 - Alcohol History How Often Do You Have a Drink Containing Alcohol: 2 to 3 times a week - Substance Use History Substance History: Past History - Substance Use Type Marijuana Status: Sustained Remission Route Used: Inhalation Reason for Use: Calm Down, Get High - Immunization History Tetanus Immunization: Unsure Hx Influenza Vaccine This Season: No Medications and Allergies Active Medications: Active Medications Acetaminophen (Tylenol) 650 mg PO Q4H PRN PRN Reason: Temp > 100.4 Albuterol (Duoneb Neb (Marge)) 1 ampul NEB Q6HR NEB [facility] Last Admin: 11/07/17 07:24 Dose: 1 ampul Clonazepam (Klonopin) 1 mg PO Q12HR [facility] Flumazenil (Romazecon Inj) 0.2 mg IV.PUSH Q1M PRN PRN Reason: OVERSEDATION Folic Acid (Folic Acid) 1 mg PO DAILY [facility] Stop: 11/11/17 08:59 Last Admin: 11/07/17 08:49 Dose: 1 mg Haloperidol Lactate (Haldol Inj) 1 mg IV.PUSH Q15M PRN PRN Reason: for severe agitation Heparin Sodium (Porcine) (Heparin Inj) 5,000 units SQ Q12HR [facility] Last Admin: 11/07/17 08:50 Dose: 5,000 units Lorazepam (Ativan) 1 mg PO Q4H PRN PRN Reason: for CIWA 8-10 Lorazepam (Ativan) 2 mg PO Q2H PRN PRN Reason: for CIWA 11-14 Lorazepam (Ativan Inj) 2 mg IV.PUSH Q2H PRN PRN Reason: for CIWA 11-14 Lorazepam (Ativan Inj) 2 mg IV.PUSH Q1H PRN PRN Reason: for CIWA 15-20 Lorazepam (Ativan Inj) 2 mg IV.PUSH Q15M PRN PRN Reason: for CIWA > 20 Lorazepam (Ativan Inj) 1 mg IV.PUSH Q4H PRN PRN Reason: for CIWA 8-10 Multivitamins/Minerals (Theragran-M) 1 tab PO DAILY [facility] Stop: 11/11/17 08:59 Last Admin: 11/07/17 08:50 Dose: Not Given Ondansetron HCl (Zofran Inj) 4 mg IV.PUSH Q6H PRN PRN Reason: NAUSEA OR VOMITING Prazosin HCl (Minipress) 2 mg PO ONCE ONE Stop: 11/07/17 15:01 Prednisone (Deltasone) 40 mg PO DAILY [facility] Last Admin: 11/07/17 08:49 Dose: 40 mg Sodium Chloride (Ns Flush) 2 ml IV.FLUSH BID [facility] Last Admin: 11/07/17 08:50 Dose: Not Given Sodium Chloride (Ns Flush) 2 ml IV.FLUSH PRN PRN PRN Reason: FLUSH AFTER USING IV ACCESS Temazepam (Restoril) 15 mg PO HS PRN PRN Reason: INSOMNIA Thiamine HCl (Vitamin B1) 100 mg PO DAILY [facility] Last Admin: 11/07/17 08:50 Dose: 100 mg Allergies Allergy/AdvReac Type Severity Reaction Status Date / Time No Known Allergies Allergy Verified 11/06/17 01:21 Home Medications Medication Instructions Recorded Confirmed Type No Known Home Medications 10/13/17 11/06/17 History Exam Vital signs: Vital Signs 11/06/17 16:00 11/06/17 16:17 11/06/17 16:50 Temperature 99.4 F Pulse Rate 107 H 92 H 124 H Respiratory Rate 17 16 Blood Pressure 144/65 H Pulse Oximetry 93 L 11/06/17 19:35 11/06/17 21:18 11/06/17 23:30 Temperature Pulse Rate 93 H 99 H 108 H Respiratory Rate 18 Blood Pressure Pulse Oximetry 97 11/07/17 00:00 11/07/17 02:54 11/07/17 04:00 Temperature 99.4 F Pulse Rate 107 H 103 H 93 H Respiratory Rate 17 20 Blood Pressure 144/65 H Pulse Oximetry 93 L 11/07/17 06:50 11/07/17 07:26 11/07/17 08:00 Temperature 98.0 F Pulse Rate 91 H 104 H 109 H Respiratory Rate 15 20 16 Blood Pressure 150/71 H 167/81 H Pulse Oximetry 95 94 L 94 L 11/07/17 08:43 Temperature Pulse Rate 106 H Respiratory Rate Blood Pressure Pulse Oximetry 99 Intake & Output 11/06/17 11/07/17 11/07/17 18:59 06:59 18:59 Intake Total 1000 / 1000 916 / 916 Balance 1000 / 1000 916 / 916 Intake: IV 1000 / 1000 916 / 916 NS + KCl 20 mEq Inj 1,000 ML @ 1000 / 1000 916 / 916 70 mls/hr IV.CONT .[id number] [facility] Rx#:[id number] Other: # Voids 2 Date of Last Bowel Movement 11/06/17 11/07/17 Narrative: No EPS, no tremors, no stiffness, no psychomotor retardation or agitation per Mental Status Examination Appearance: Appropriate Consciousness: Alert Orientation: x4 Motor Activity: Normal gait Speech: Unremarkable Language: Adequate Fund of Knowledge: Adequate Attention and Concentration: Adequate Memory: Unremarkable Mood: Sad Affect: Sad Thought Process & Associations: Intact Thought Content: Appropriate Hallucination Type: None Suicidal Ideation: No Suicidal Plan: No Suicidal Intention: No Homicidal Ideation: No Homicidal Plan: No Homicidal Intention: No Judgment: Impulsive Assessment and Plan - Assessment (1) PTSD (post-traumatic stress disorder) Code(s): F43.10 - Post-traumatic stress disorder, unspecified Status: Acute - Plan Plan: Estimated LOS: [] days On Psychiatric evaluation today the patient shows symptomatology of depression consistent on frequent mood swings, hopelessness, helplessness, no enjoying life , episodes of crying spells, poor sleep at night in the context of the of her son by suicide. The patient found her son that in the bathroom and since then she also has been presenting nightmares and flashbacks about these episodes. The patient has considerably increased alcohol intake in order to treat her depression and anxiety. She denies suicidal and homicidal ideation, she denies visual and auditory hallucinations. The patient is willing to start medications for depression and PTSD in inpatient basis. He will be admitted in psychiatry voluntarily. I will start prazosin 2 mg at bedtime for nightmares, clonazepam 1 mg at at bedtime for insomnia, Paxil 10 mg daily for depression and PTSD. Brief supportive psychotherapy provided Justification for Continued Inpatient Stay: Patient will be admitted in psychiatry.
[2017-11-07 16:05] VITALS: BP 168/88; PULSE 112; TEMP 99.1; O2SAT 94
[2017-11-07] MEDS ORDERED: clonazePAM 1 MG Tablet PO SCH (21:00)
== END 2017-11-07 16:13 ==
LOC: NEPGCP 01:01 → NEPE 01:01 → NEDA 01:01 → NEPGCP 05:27
PROVIDERS: ADMIT Hospitalist; ATTEND Hospitalist
DX: J44.1 Chronic obstructive pulmonary disease with (acute) exacerbation; E87.6 Hypokalemia; F43.10 Post-traumatic stress disorder, unspecified; E78.00 Pure hypercholesterolemia, unspecified; F17.210 Nicotine dependence, cigarettes, uncomplicated; E87.1 Hypo-osmolality and hyponatremia; J44.0 Chronic obstructive pulmonary disease with (acute) lower respiratory infection; G93.40 Encephalopathy, unspecified; G47.00 Insomnia, unspecified; Z99.81 Dependence on supplemental oxygen; F32.9 Major depressive disorder, single episode, unspecified; Z79.899 Other long term (current) drug therapy; F10.10 Alcohol abuse, uncomplicated; E78.5 Hyperlipidemia, unspecified; J18.9 Pneumonia, unspecified organism; I10 Essential (primary) hypertension

== ENCOUNTER 2017-11-07 16:27 | Inpatient (IN) ==
[2017-11-07] MEDS ORDERED: Haloperidol Inj 5 MG/ML Ampul IV.PUSH PRN (22:33)
[2017-11-07] MEDS ORDERED: Bisacodyl 10 MG Supp RECTAL PRN (22:33)
[2017-11-07] MEDS ORDERED: Aluminum/Magnesium/Simethacone Susp 30 ML UDC PO PRN (22:33)
[2017-11-08] MEDS: LORazepam 1 MG Tablet PO PRN ×3 (01:17→17:08)
[2017-11-08] MEDS: Folic Acid 1 MG Tablet PO SCH (09:39)
[2017-11-08] MEDS: Senna/Docusate Sodium 8.6/50 MG Tablet PO SCH ×2 (09:40→20:47)
[2017-11-08] MEDS: predniSONE 20 MG Tablet PO SCH (10:27)
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
[2017-11-08] MEDS ORDERED: Aluminum/Magnesium/Simethacone Susp 30 ML UDC PO PRN (12:49)
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
[2017-11-08] MEDS: clonazePAM 1 MG Tablet PO SCH (20:41)
[2017-11-09] MEDS: LORazepam 1 MG Tablet PO PRN ×3 (04:16→13:44)
[2017-11-09] MEDS: Senna/Docusate Sodium 8.6/50 MG Tablet PO SCH ×2 (09:06→21:12)
[2017-11-09] MEDS: Folic Acid 1 MG Tablet PO SCH (09:07)
[2017-11-09] MEDS: predniSONE 20 MG Tablet PO SCH (09:07)
[2017-11-09] MEDS: Multivitamin/Minerals Therapeutic Tablet PO SCH (09:10)
--- NOTE | 2017-11-09 12:18 | P.PNPSY ---
Subjective Remarks: Patient seen in her room with nurse Cele, patient seen in her room with nurse Cele , chart reviewed, patient compliant medication. Patient somewhat histrionic since she did not sleep well last night is demanding increase in her Klonopin from 1 mg to 2 mg. I did defer with that she became somewhat upset citing Dr. Mcnair's discussions with her. Though he also suggests 1 mg Klonopin. Patient does deny suicidality homicidality voices or visions. After this session I did speak with Counselor Saniya. She has documentation from other family members of significant alcohol misuse by the patient and by her extended family on a daily basis. While that is significant trauma stress in grief reactions with this lady I feel that may be also a significant component of misuse of alcohol. There also is component of drug-seeking. I question at this time if significant attention of her length of stay would be beneficial. Patient does need grief counseling. Individual counseling. An appropriate psychiatric follow-up in the community. We will continue medications no change with a counselor also discussed with patient the possibility of discharge tomorrow with appropriate fairly intense community based services Review of Systems All other systems reviewed negative except as stated in HPI Mental Status Examination Appearance: Appropriate Consciousness: Alert Orientation: x4 Motor Activity: Normal gait Speech: Unremarkable Language: Adequate Fund of Knowledge: Adequate Attention and Concentration: Adequate Memory: Unremarkable Mood: Sad Affect: Other (Slight increased range and intensity) Thought Process & Associations: Intact Thought Content: Appropriate Hallucination Type: None Delusion Type: None Suicidal Ideation: No Suicidal Plan: No Suicidal Intention: No Homicidal Ideation: No Homicidal Plan: No Homicidal Intention: No Insight: Adequate Judgment: Adequate Assessment and Plan - Assessment (1) PTSD (post-traumatic stress disorder) Code(s): F43.10 - Post-traumatic stress disorder, unspecified Status: Acute - Plan Plan: Patient continues somewhat depressed, though she is showing some drug seeking behavior today. Question whether an extended admission would be beneficial to this lady as opposed to appropriate planning and referrals in the community Justification for Continued Inpatient Stay: At this time patient would decompensate a place to a lower level of care Discharge Planning: To be determined return home Request Healthcare Surrogate/Guardian Advocate?: No
[2017-11-09] MEDS: clonazePAM 1 MG Tablet PO SCH (21:12)
[2017-11-10 05:42] VITALS: BP 113/74; RESP 16; TEMP 98; O2SAT 95
[2017-11-10] MEDS: predniSONE 20 MG Tablet PO SCH (08:50)
[2017-11-10] MEDS: Folic Acid 1 MG Tablet PO SCH (08:50)
[2017-11-10] MEDS: Multivitamin/Minerals Therapeutic Tablet PO SCH (08:51)
[2017-11-10] MEDS: Senna/Docusate Sodium 8.6/50 MG Tablet PO SCH (08:51)
[2017-11-10 09:47] VITALS: PULSE 92
[2017-11-10 11:20] LABS: Calcium 10.1 mg/dL (8.5-10.1); Carbon Dioxide 28.7 meq/L (21.0-32.0); Chol/HDL Ratio 1.7 Ratio; Potassium 4.2 meq/L (3.5-5.1)
--- NOTE | 2017-11-10 11:31 | P.DSPSY ---
Psychiatry Discharge Summary Inpatient Psychiatric care?: Yes Advance Directives: No Mental Health Advance Directive: No Health Care Proxy: No - Admission Admission Date: November 07, 2017 16:27 - Admission Diagnosis (1) PTSD (post-traumatic stress disorder) Code(s): F43.10 - Post-traumatic stress disorder, unspecified Brief History: Late entry, patient was seen 11/07/2017 10:30 AM The patient is a 67-year-old woman, domiciled alone in [place], single, mother of 4 kids, with psychiatric history of depression, anxiety, alcohol use disorder, no previous psychiatric hospitalizations, no previous suicidal attempts, the patient was in Prozac 20 mg, Ambien 10 mg, Abilify 15 mg prescribed by PCP, with a past medical history significant for COPD, hyperlipidemia and hypertension presents to the emergency department for evaluation of chest pain and shortness of breath. She was on observation due to acute COPD Exacerbation: patient with +SOB/nonproductive cough. Consulted to psychiatry to address depression. EMR reviewed. Collateral information from patient's daughter Celena Rockwell was obtained. On psychiatric evaluation patient is calm, cooperative, tearful. She says that she has been depressed since her son committed suicide on March 12, 2018. She says that she found her son in the bathroom after shooting and self in his head. Since then, the patient has been feeling very depressed, with increased hopelessness, helplessness, pessimistic about the future, no enjoying life, is sleeping very poorly, with frequent nightmares and flashbacks of her son. She denies suicidal and homicidal ideation, she denies visual and auditory hallucinations. The patient states that she has been drinking alcohol in order to treat her depression and anxiety. She says that with alcohol she could not go to sleep at night. She denies the use of other drugs. Patient denies family psychiatric history. The patient is fully oriented 3, no attention deficit, no fluctuation of consciousness. PPH: Anxiety, alcohol use disorder, no previous psychiatric hospitalizations, no previous suicidal attempts, the patient was in Prozac 20 mg, Ambien 10 mg, Abilify 15 mg prescribed by PCP PMHx: COPD, hypertension, hyper lipid Substance history: The patient drinks alcohol every day. Denies the use of illegal drug Family psychiatric history: Father was an alcoholic Social history: The patient was born and raised in [facility], she lives inside [facility] along, single, mother of 4 kids, supported by Social Security On Psychiatric evaluation today the patient shows symptomatology of depression consistent on frequent mood swings, hopelessness, helplessness, no enjoying life , episodes of crying spells, poor sleep at night in the context of the of her son by suicide. The patient found her son that in the bathroom and since then she also has been presenting nightmares and flashbacks about these episodes. The patient has considerably increased alcohol intake in order to treat her depression and anxiety. She denies suicidal and homicidal ideation, she denies visual and auditory hallucinations. The patient is willing to start medications for depression and PTSD in inpatient basis. He will be admitted in psychiatry voluntarily. I will start prazosin 2 mg at bedtime for nightmares, clonazepam 1 mg at at bedtime for insomnia, Paxil 10 mg daily for depression and PTSD. Brief supportive psychotherapy provided Tobacco Use In Past 30 Days: Yes How Often Do You Have a Drink Containing Alcohol: 4 or more times a week Hospital Course: Patient's hospital course was noted for her continued grief over her son. Though the range and intensity of her affect did soften with her stable the Center compliance with medication. She now denies suicidality homicidality voices or visions. She does have some occasional dreams and flashbacks. She continues somewhat reluctant to discuss the intensity and relationship of her alcohol use as to all of the above. However at the same patient no longer meets criteria for inpatient psychiatric hospitalization. We will also discussed with her drug seeking behaviors and the fact that there will be no benzodiazepines or opiates prescribed for this lady. Patient to be discharged today with Rx times a month to follow-up with Dr. Brett Flanagan's office. We will also recommend trauma grief counseling. Along with recommendation for AA and perhaps a voluntary substance abuse assessment through [facility] act - Discharge Discharge Date: 11/10/17 - Discharge Diagnosis (1) PTSD (post-traumatic stress disorder) Diagnosis: Principal Code(s): F43.10 - Post-traumatic stress disorder, unspecified Status: Acute Discharge Disposition: Home - Discharge Instructions Discharge Diet: Regular Diet Activities You Can Perform: Regular- No Restrictions - Discharge Time > 30 minutes Mental Status Examination Appearance: Appropriate Consciousness: Alert Orientation: x4 Motor Activity: Normal gait Speech: Unremarkable Language: Adequate Fund of Knowledge: Adequate Attention and Concentration: Adequate Memory: Unremarkable Mood: Sad Affect: Other (Slight increased range and intensity) Thought Process & Associations: Intact Thought Content: Appropriate Hallucination Type: None Delusion Type: None Suicidal Ideation: No Suicidal Plan: No Suicidal Intention: No Homicidal Ideation: No Homicidal Plan: No Homicidal Intention: No Insight: Adequate Judgment: Adequate Discharge/Advance Care Plan - Results Vital Signs: Last Vital Signs Temp 98 F 11/10/17 05:42 Pulse 92 H 11/10/17 09:46 Resp 16 11/10/17 09:46 BP 113/74 11/10/17 05:42 Pulse Ox 95 11/10/17 05:42 Lab Results: Abnormal Lab Results 11/10/17 08:25 Sodium 136 Potassium 4.2 Chloride 98 Carbon Dioxide 28.7 Anion Gap 9 BUN 24 H Creatinine 0.74 Estimated GFR 78 L Random Glucose 72 L Calcium 10.1 Triglycerides 73 Cholesterol 266 H LDL Cholesterol, Calc 95 HDL Cholesterol 156.0 H Cholesterol/HDL Ratio 1.70 Laboratory Results Triglycerides 73 mg/dL (42-150) 11/10/17 08:25 Cholesterol 266 mg/dL (120-200) H 11/10/17 08:25 LDL Cholesterol, Calc 95 mg/dL (0-99) 11/10/17 08:25 HDL Cholesterol 156.0 mg/dL (40.0-60.0) H 11/10/17 08:25 Summary of Procedures: None done Pending Results: None - Medications Number of antipsychotic medications at discharge: 0 - Discharge Care Plan Goals to Promote Your Health: * To prevent worsening of your condition and complications * To maintain your health at the optimal level Directions to Meet Your Goals: Take your medications as prescribed Follow your dietary instruction Follow activity as directed Keep your appointments as scheduled Take your immunizations and boosters as scheduled If your symptoms worsen call your PCP, if no PCP go to Urgent Care Center or Emergency Room For 17/10 questions related to your inpatient stay or results of tests pending at discharge, please contact Dr. Farooq Somers MD at Smoking is Dangerous to Your Health. Avoid second hand smoking
[2017-11-10 17:59] LABS: Hemoglobin A1c 5.8 % (4.3-6.0)
== END 2017-11-10 14:45 | disposition home or self-care (01) ==
LOC: H260 16:27
PROVIDERS: ADMIT Psychiatry & Neurology Psychiatry; ATTEND Psychiatry & Neurology Psychiatry

== ENCOUNTER 2018-01-04 05:38 | Inpatient (IN) ==
--- NOTE | 2018-01-04 06:36 | XR ---
EXAM DATE: 01/04/2018 6:13 AM EDT AGE/SEX: 67 years / Female INDICATIONS: Shortness of breath. CLINICAL DATA: This is the patient's initial encounter. Patient reports that signs and symptoms have been present for 1 day and indicates a pain score of 0/10. MEDICAL/SURGICAL HISTORY: None. None. [place]PAR[place] [facility] [place] W 3D, 11/06/2017. [facility] [place]ST 1V SINGLE AP, 11/06/2017. . FINDINGS: Portable AP view of the chest demonstrates a normal-sized cardiac silhouette. No effusion, consolidat ion, or pneumothorax is identified. There is interstitial prominence bilaterally. The bones and soft tissues demonstrate no acute finding. Right rib fractures are again identified. EKG lines overlie the patient. Skinfold simulates a pneumothorax at the right lung apex. CONCLUSION: 1. No acute cardiopulmonary abnormality is identified. There are background lung changes characteris tic of emphysema. 2. Right rib fractures are again identified. Electronically signed by: Farooq Porter MD 01/04/2018 6:35 AM EDT
[2018-01-04 06:37] LABS: VBG PCO2 36 mmHG (44-48); VBG PH 7.42 (7.360-7.400); VBG PO2 31 mmHG (35-40)
--- NOTE | 2018-01-04 07:08 | ED ---
HPI General Chief complaint: Shortness of Breath/Dyspnea Stated complaint: Sob Time Seen by Provider: 01/04/18 05:58 History of Present Illness HPI narrative: Patient 67-year-old female on home O2 for COPD presents emergency department for fairly sudden onset shortness of breath tonight. Patient states she just recently finished antibiotics for a pneumonia that she was diagnosed with here. She is having very trouble breathing currently. Endorses some mild left-sided chest discomfort. No abdominal pain no nausea no vomiting no diarrhea no fevers, does endorse a dry cough. Symptoms moderate, started tonight, associated signs symptoms in context as above. Related Data Previous Rx's Medication Instructions Recorded benztropine 0.5 mg PO BID #60 tab 11/10/17 folic acid 1 mg PO DAILY #30 tab 11/10/17 [id number]-[id number]-calcium-mins 1 tab PO DAILY #30 tab 11/10/17 [Thera M Plus (ferrous fumarat)] paroxetine HCl 10 mg PO DAILY #15 tab 11/10/17 prazosin [Minipress] 2 mg PO HS #30 cap 11/10/17 thiamine HCl (vitamin B1) 100 mg PO DAILY #30 tab 11/10/17 albuterol sulfate 1.25 mg NEB Q2HR NEB PRN 10 Days 01/08/18 #20 ml albuterol sulfate 2.5 mg INH Q6HR NEB #1 amp 01/08/18 Allergies Allergy/AdvReac Type Severity Reaction Status Date / Time No Known Allergies Allergy Verified 01/04/18 05:53 Review of Systems ROS: all other systems reviewed are negative [facility] Social History Social History Substance History: No History of Abuse Second Hand Smoke Exposure: No Smoking Status: Current every day smoker Tobacco Type: Cigarettes Packs Per Day: 1.5 Cigarettes Per Day: 30.0 How Often Do You Have a Drink Containing Alcohol: 2 to 3 times a week Recent Travel in [facility] within the Last 8 Weeks: No Recent Out of Country Travel within the Last 8 Weeks: No Immunization History Tetanus Immunization: >5 Years Exam Narrative Exam Narrative: GENERAL: Well-developed elderly female, tripod position, auto peeping. SKIN: Focused skin assessment warm/dry. HEAD: Atraumatic. Normocephalic. EYES: Pupils equal and round. No scleral icterus. No injection or drainage. ENT: No nasal bleeding or discharge. Mucous membranes pink and moist. NECK: Trachea midline. No JVD. CARDIOVASCULAR: Regular rate and rhythm. No murmur appreciated. RESPIRATORY: Tachypnea, short phrase dyspnea. She has expiratory wheezes throughout all lung harrison. Intercostal and supraclavicular retractions peer. Breath sounds equal bilaterally. GASTROINTESTINAL: Abdomen soft, non-tender, nondistended. Hepatic and splenic margins not palpable. MUSCULOSKELETAL: No obvious deformities. No clubbing. No cyanosis. No edema. NEUROLOGICAL: Awake and alert. No obvious cranial nerve deficits. Motor grossly within normal limits. Normal speech. PSYCHIATRIC: Appropriate mood and affect; insight and judgment normal. Course Initial Documented Vital Signs Temperature 98.1 F 01/04/18 05:45 Pulse Rate 106 H 01/04/18 05:45 Respiratory Rate 28 H 01/04/18 05:45 Blood Pressure 141/76 H 01/04/18 05:45 Pulse Oximetry 100 01/04/18 05:45 Last Documented Vital Signs Temperature 96.2 F L 01/08/18 12:50 Pulse Rate 101 H 01/08/18 12:50 Respiratory Rate 20 01/08/18 12:50 Blood Pressure 167/94 H 01/08/18 12:50 Pulse Oximetry 93 L 01/08/18 12:50 Sign Out Sign Out Data: Patient Sign Out occurred on 01/04/18 at 07:26. Patient's care was discussed, and care was transferred from Neftali Welch MD to Sav Mccauley MD. Sign Out Comment: Discussed with Dr. Mccauley as above. Last updated by Neftali Welch MD at 01/04/18 07:11 Medical Decision Making MDM Narrative Medical decision making narrative: Patient room to the emergency department, 125 of Solu-Medrol in route, a DuoNeb in route. Still with significant tachypnea. Additional DuoNeb was ordered, basic workup including chest x-ray is negative. At 0700 the patient was discussed with Dr. Mccauley who is relieving me, he will assume care of the patient disposition properly peer Patient was reassessed and found to be sleeping after she was treated for COPD with albuterol. Her heart rate was about 80. When she woke up it jumped up to 130s. IV fluids started. EKG shows sinus tachycardia. Possible EtOH on breath and the alcohol level was added on. There is also an anion gap potentially consistent with alcoholic ketoacidosis or very mild variant thereof. Patient was ambulated in the ED and the O2 sat dropped to 89% and the heart rate increased to 130. Patient will be admitted for nebulizer treatments as well as volume resuscitation. Discussed with Dr Kaur. Medical Screen Exam Complete: Yes Emergency Medical Condition: Yes Lab Data Result diagrams: 01/04/18 07:05 01/05/18 07:31 Lab Results 01/04/18 01/04/18 01/04/18 Range/Units 06:10 07:05 07:05 WBC 10.8 (4.0-11.0) th/mm3 RBC 4.03 (4.00-5.30) mil/mm3 Hgb 13.2 (11.6-15.3) gm/dL Hct 38.5 (35.0-46.0) % MCV 95.5 (80.0-100.0) fL MCH 32.7 (27.0-34.0) pg MCHC 34.2 (32.0-36.0) % RDW 15.3 (11.6-17.2) % Plt Count 331 (150-450) th/mm3 MPV 7.2 (7.0-11.0) fL Neut % (Auto) 79.1 H (16.0-70.0) % Lymph % (Auto) 18.3 (9.0-44.0) % Garrett % (Auto) 1.9 (0.0-8.0) % Eos % (Auto) 0.3 (0.0-4.0) % Baso % (Auto) 0.4 (0.0-2.0) % Neut # (Auto) 8.5 H (1.8-7.7) th/mm3 Lymph # (Auto) 2.0 (1.0-4.8) th/mm3 Garrett # (Auto) 0.2 (0.0-0.9) th/mm3 Eos # (Auto) 0.0 (0.0-0.4) th/mm3 Baso # (Auto) 0.0 (0.0-0.2) th/mm3 WBC Differential . Differential Comment Auto diff final Puncture Site Iv Patient Temperature 98.6 VBG pH 7.42 H (7.360-7.400) VBG pCO2 36 L (44-48) mmHG VBG pO2 31 L (35-40) mmHG VBG HCO3 23 (22-26) mmol/L VBG O2 Saturation 50 L (70-76) % VBG O2 Content 9.0 (9.0-17.0) Vol % VBG Base Excess -1.0 (-2-2) mmol/L VBG Carboxyhemoglobin 3.1 (0-4) % VBG Methemoglobin 0.6 (0-2) % Hemoglobin 12.7 (12.0-16.0) G/DL O2 Delivery Device Nasal cannula Liter Flow 2.00 L/M Critical Value No Sodium 122 L* (136-145) meq/L Potassium 3.3 L (3.5-5.1) meq/L Chloride 84 L (98-107) meq/L Carbon Dioxide 22.3 (21.0-32.0) meq/L Anion Gap 16 H (5-15) meq/L BUN 3 L (7-18) mg/dL Creatinine 0.57 (0.50-1.00) mg/dL Estimated GFR Greater than 89 (>89) mL/min Random Glucose 114 H (74-106) mg/dL Calcium 7.9 L (8.5-10.1) mg/dL Total Bilirubin 0.6 (0.2-1.0) mg/dL AST 46 H (15-37) U/L ALT 29 (10-53) U/L Alkaline Phosphatase 119 H (45-117) U/L Troponin I Less than 0.02 L (0.02-0.05) ng/mL Total Protein 6.5 (6.4-8.2) g/dL Albumin 3.0 L (3.4-5.0) g/dL Serum Alcohol (0-5) mg/dL 01/04/18 01/04/18 01/04/18 Range/Units 07:05 17:33 20:16 WBC (4.0-11.0) th/mm3 RBC (4.00-5.30) mil/mm3 Hgb (11.6-15.3) gm/dL Hct (35.0-46.0) % MCV (80.0-100.0) fL MCH (27.0-34.0) pg MCHC (32.0-36.0) % RDW (11.6-17.2) % Plt Count (150-450) th/mm3 MPV (7.0-11.0) fL Neut % (Auto) (16.0-70.0) % Lymph % (Auto) (9.0-44.0) % Garrett % (Auto) (0.0-8.0) % Eos % (Auto) (0.0-4.0) % Baso % (Auto) (0.0-2.0) % Neut # (Auto) (1.8-7.7) th/mm3 Lymph # (Auto) (1.0-4.8) th/mm3 Garrett # (Auto) (0.0-0.9) th/mm3 Eos # (Auto) (0.0-0.4) th/mm3 Baso # (Auto) (0.0-0.2) th/mm3 WBC Differential Differential Comment Puncture Site Patient Temperature VBG pH (7.360-7.400) VBG pCO2 (44-48) mmHG VBG pO2 (35-40) mmHG VBG HCO3 (22-26) mmol/L VBG O2 Saturation (70-76) % VBG O2 Content (9.0-17.0) Vol % VBG Base Excess (-2-2) mmol/L VBG Carboxyhemoglobin (0-4) % VBG Methemoglobin (0-2) % Hemoglobin (12.0-16.0) G/DL O2 Delivery Device Liter Flow L/M Critical Value Sodium 133 L D 132 L (136-145) meq/L Potassium (3.5-5.1) meq/L Chloride (98-107) meq/L Carbon Dioxide (21.0-32.0) meq/L Anion Gap (5-15) meq/L BUN (7-18) mg/dL Creatinine (0.50-1.00) mg/dL Estimated GFR (>89) mL/min Random Glucose (74-106) mg/dL Calcium (8.5-10.1) mg/dL Total Bilirubin (0.2-1.0) mg/dL AST (15-37) U/L ALT (10-53) U/L Alkaline Phosphatase (45-117) U/L Troponin I (0.02-0.05) ng/mL Total Protein (6.4-8.2) g/dL Albumin (3.4-5.0) g/dL Serum Alcohol 90 H (0-5) mg/dL 01/05/18 Range/Units 07:31 WBC (4.0-11.0) th/mm3 RBC (4.00-5.30) mil/mm3 Hgb (11.6-15.3) gm/dL Hct (35.0-46.0) % MCV (80.0-100.0) fL MCH (27.0-34.0) pg MCHC (32.0-36.0) % RDW (11.6-17.2) % Plt Count (150-450) th/mm3 MPV (7.0-11.0) fL Neut % (Auto) (16.0-70.0) % Lymph % (Auto) (9.0-44.0) % Garrett % (Auto) (0.0-8.0) % Eos % (Auto) (0.0-4.0) % Baso % (Auto) (0.0-2.0) % Neut # (Auto) (1.8-7.7) th/mm3 Lymph # (Auto) (1.0-4.8) th/mm3 Garrett # (Auto) (0.0-0.9) th/mm3 Eos # (Auto) (0.0-0.4) th/mm3 Baso # (Auto) (0.0-0.2) th/mm3 WBC Differential Differential Comment Puncture Site Patient Temperature VBG pH (7.360-7.400) VBG pCO2 (44-48) mmHG VBG pO2 (35-40) mmHG VBG HCO3 (22-26) mmol/L VBG O2 Saturation (70-76) % VBG O2 Content (9.0-17.0) Vol % VBG Base Excess (-2-2) mmol/L VBG Carboxyhemoglobin (0-4) % VBG Methemoglobin (0-2) % Hemoglobin (12.0-16.0) G/DL O2 Delivery Device Liter Flow L/M Critical Value Sodium 134 L (136-145) meq/L Potassium 4.0 (3.5-5.1) meq/L Chloride 100 D (98-107) meq/L Carbon Dioxide 26.6 (21.0-32.0) meq/L Anion Gap 7 (5-15) meq/L BUN 5 L (7-18) mg/dL Creatinine 0.68 (0.50-1.00) mg/dL Estimated GFR 86 L (>89) mL/min Random Glucose 193 H (74-106) mg/dL Calcium 8.3 L (8.5-10.1) mg/dL Total Bilirubin 0.4 (0.2-1.0) mg/dL AST 30 (15-37) U/L ALT 27 (10-53) U/L Alkaline Phosphatase 100 (45-117) U/L Troponin I (0.02-0.05) ng/mL Total Protein 6.2 L (6.4-8.2) g/dL Albumin 2.8 L (3.4-5.0) g/dL Serum Alcohol (0-5) mg/dL Imaging Data Radiologist's impression: Chest X-Ray 01/04/18 06:13 CONCLUSION: 1. No acute cardiopulmonary abnormality is identified. There are background lung changes characteristic of emphysema. 2. Right rib fractures are again identified. Discharge Plan Discharge Disposition Patient Disposition: Discharge Home Discharge Condition Condition: Good Discharge Order Discharge Orders: Discharge Order (Routine); Ordered 01/08/18 Ordered By: Maribel Hay Discharge Details Anticipated Discharge Date: 01/08/18 Physicians Team ED Provider: Sav Mccauley Primary Care Provider: Primary Care Jemma Mota Attending Provider: Maribel Hay Other Providers: [facility],Insurance Status ED Status: Left Department Discharge Information Discharge Date/Time: 01/04/18 12:15
[2018-01-04 07:32] LABS: Baso % (Auto) 0.4 % (0.0-2.0); Eos % (Auto) 0.3 % (0.0-4.0); Hematocrit 38.5 % (35.0-46.0); Hemoglobin 13.2 gm/dL (11.6-15.3); Lymph % (Auto) 18.3 % (9.0-44.0); Mean Corpuscular HGB Conc 34.2 % (32.0-36.0); Mean Corpuscular Hemoglobin 32.7 pg (27.0-34.0); Mean Corpuscular Volume 95.5 fL (80.0-100.0); Mean Platelet Volume 7.2 fL (7.0-11.0); Mono # (Auto) 0.2 th/mm3 (0.0-0.9); Mono % (Auto) 1.9 % (0.0-8.0); Neut # (Auto) 8.5 th/mm3 (1.8-7.7); Neut % (Auto) 79.1 % (16.0-70.0); Platelet Count 331 th/mm3 (150-450); Red Blood Count 4.03 mil/mm3 (4.00-5.30); Red Cell Distribution Width 15.3 % (11.6-17.2); White Blood Count 10.8 th/mm3 (4.0-11.0)
[2018-01-04 07:48] LABS: Anion Gap 16 meq/L (5-15); Aspartate Aminotransferase 46 U/L (15-37); Blood Urea Nitrogen 3 mg/dL (7-18); Calcium 7.9 mg/dL (8.5-10.1); Carbon Dioxide 22.3 meq/L (21.0-32.0); Chloride 84 meq/L (98-107); Glomerular Filtration Rate Greater Than 89 mL/min (>89); Glucose,Random 114 mg/dL (74-106); Potassium 3.3 meq/L (3.5-5.1)
[2018-01-04 07:49] LABS: Alanine Aminotransferase 29 U/L (10-53)
[2018-01-04 07:53] LABS: Alkaline Phosphatase 119 U/L (45-117); Total Protein 6.5 g/dL (6.4-8.2)
[2018-01-04 07:56] LABS: Sodium 122 meq/L (136-145)
[2018-01-04] MEDS: Sod Chloride 0.9% Inj 1,000 ML IV.SIG SCH ×2 (08:19→09:53)
--- NOTE | 2018-01-04 08:46 | ECG ---
Date Performed: 01/04/2018 Time Performed: 05:45:03 PTAGE: 67 years EKG: SINUS TACHYCARDIA ABNORMAL RHYTHM ECG PREVIOUS TRACING : 11/06/2017 01.07 No significant change from previous tracing noted. DOCTOR: Mike Landaverde Interpretating Date/Time 01/04/2018 08:45:49
[2018-01-04] MEDS ORDERED: MethylPREDNISolone Sod Succinate Inj 125 MG/2 ML Vial IV.PUSH ONE (11:30)
[2018-01-04] MEDS ORDERED: Haloperidol Inj 5 MG/ML Ampul IV.PUSH PRN (11:48)
[2018-01-04] MEDS ORDERED: LORazepam 1 MG Tablet PO PRN (11:48)
--- NOTE | 2018-01-04 11:56 | P.HPIM ---
History of Present Illness Primary Care Physician: No Primary Care Physician Chief Complaint: shortness of breath History of Present Illness: patient is a 67 y/o female with history of COPD- oxygen dependent with history of alcohol abuse,who presented to ER with shortness of breath. she says that her sob started yesterday and got worse. she doesn't report any productive cough , fever, chills . she says that she's had diarrhea for the past two days but denies abdominal pain, nausea or vomiting. she says that she drinks a few times a week and the last drink was yesterday. Review of Systems All other systems reviewed negative except as stated in HPI PMFSH - History History Provided By: Patient - Medical History Medical History: Medical History (Last Reviewed 01/04/18 @ 11:53 by Monae Kaur MD) Pneumonia Breathing problem HTN (hypertension) High cholesterol Patient denies medical problems - Surgical History Surgical History: Surgical History (Last Reviewed 01/04/18 @ 11:53 by Monae Kaur MD) H/O tubal ligation (Acute) - Family History Family History: Family History (Last Reviewed 01/04/18 @ 11:53 by Monae Kaur MD) Other Family history normal - Tobacco History Second Hand Smoke Exposure: Yes Tobacco Use In Past 30 Days: Yes Smoking Status: Current every day smoker Tobacco Type: Cigarettes Packs Per Day: 1.5 Cigarettes Per Day: 30.0 - Alcohol History How Often Do You Have a Drink Containing Alcohol: Monthly or less - Substance Use History Substance History: No History of Abuse - Travel History Recent Travel in the [place] Within the Last 8 Weeks: No Recent Travel Out of the Country Within the Last 8 Weeks: No - Immunization History Tetanus Immunization: >5 Years Medications and Allergies Active Medications: Active Medications Albuterol (Albuterol Neb (Prn)) 1.25 mg NEB Q2HR NEB PRN PRN Reason: SHORTNESS OF BREATH Albuterol (Duoneb Neb (Marge)) 1 ampul NEB Q4HR NEB MARGE Benztropine Mesylate (Cogentin) 0.5 mg PO BID MARGE Flumazenil (Romazecon Inj) 0.2 mg IV.PUSH Q1M PRN PRN Reason: OVERSEDATION Folic Acid (Folic Acid) 1 mg PO DAILY MARGE Haloperidol Lactate (Haldol Inj) 1 mg IV.PUSH Q15M PRN PRN Reason: for severe agitation Sodium Chloride (Ns Inj) 1,000 mls @ 0 mls/hr IV.SIG BOLUS [facility] Stop: 01/05/18 08:16 Last Admin: 01/04/18 09:53 Dose: 1,000 mls/hr Sodium Chloride (Ns Inj) 1,000 mls @ 100 mls/hr IV.CONT .Q10H MARGE Lorazepam (Ativan) 1 mg PO Q4H PRN PRN Reason: for CIWA 8-10 Lorazepam (Ativan) 2 mg PO Q2H PRN PRN Reason: for CIWA 11-14 Lorazepam (Ativan Inj) 2 mg IV.PUSH Q2H PRN PRN Reason: for CIWA 11-14 Lorazepam (Ativan Inj) 2 mg IV.PUSH Q1H PRN PRN Reason: for CIWA 15-20 Lorazepam (Ativan Inj) 2 mg IV.PUSH Q15M PRN PRN Reason: for CIWA > 20 Lorazepam (Ativan Inj) 1 mg IV.PUSH Q4H PRN PRN Reason: for CIWA 8-10 Methylprednisolone Sodium Succinate (Solumedrol Inj) 40 mg IV.PUSH Q8H [facility] Miscellaneous (Pill Splitter) 1 each OTHER UNSCH [facility] Multivitamins/Minerals (Theragran-M) 1 tab PO DAILY [facility] Paroxetine HCl (Paxil) 10 mg PO DAILY [facility] Potassium Chloride (K-Dur) 40 meq PO ONCE ONE Stop: 01/04/18 11:48 Potassium Chloride (K-Dur) 40 meq PO ONCE ONE Stop: 01/04/18 16:01 Prazosin HCl (Minipress) 2 mg PO HS [facility] Sodium Chloride (Ns Flush) 2 ml IV.FLUSH UNSCH PRN PRN Reason: FLUSH AFTER USING IV ACCESS Thiamine HCl (Vitamin B1) 100 mg PO DAILY [facility] Allergies Allergy/AdvReac Type Severity Reaction Status Date / Time No Known Allergies Allergy Verified 01/04/18 05:53 Exam Vital signs: Vital Signs 01/04/18 05:45 01/04/18 05:52 01/04/18 06:15 Temperature 98.1 F 98.1 F Pulse Rate 106 H 100 H Respiratory Rate 28 H 28 H Blood Pressure 141/76 H 141/76 H Pulse Oximetry 100 100 100 01/04/18 06:25 01/04/18 06:35 01/04/18 06:41 Temperature Pulse Rate 112 H 106 H 102 H Respiratory Rate 28 H 28 H 28 H Blood Pressure 141/76 H Pulse Oximetry 98 100 01/04/18 06:45 01/04/18 07:26 01/04/18 08:10 Temperature Pulse Rate 95 H 115 H 120 H Respiratory Rate 24 18 20 Blood Pressure 141/76 H Pulse Oximetry 93 L 90 L 01/04/18 09:37 01/04/18 10:18 01/04/18 11:14 Temperature Pulse Rate 134 H 110 H 90 Respiratory Rate 24 18 20 Blood Pressure 130/63 132/69 Pulse Oximetry 89 L 96 95 Intake & Output 01/03/18 01/04/18 01/04/18 18:59 06:59 18:59 Intake Total 1000 / 1000 Balance 1000 / 1000 Weight 61.689 kg Intake: IV 1000 / 1000 NS Inj 1,000 ML @ Wide Open IV. 1000 / 1000 SIG BOLUS MARGE Rx#:[id number] - Constitutional mild distress - Routine HEENT Exam Eye: Present: PERRL - Routine Neck Exam Present: supple - Routine Respiratory Exam Present: prolonged expiratory phase, wheezes - Routine Cardiovascular Exam Present: RRR - Routine Abdominal Exam Present: soft - Routine Extremities Exam Comments: no pedal edema. - Routine Neurological Exam Present: alert, oriented X3 Results - Labs CBC & Chem 7: 01/04/18 07:05 01/04/18 07:05 Labs: Short CBC 01/04/18 Range/Units 07:05 WBC 10.8 (4.0-11.0) th/mm3 Hgb 13.2 (11.6-15.3) gm/dL Hct 38.5 (35.0-46.0) % Plt Count 331 (150-450) th/mm3 BMP 01/04/18 07:05 Sodium 122 L* Potassium 3.3 L Chloride 84 L Carbon Dioxide 22.3 BUN 3 L Creatinine 0.57 Calcium 7.9 L Cardiac Enzymes 01/04/18 Range/Units 07:05 Troponin I Less than 0.02 L (0.02-0.05) ng/mL Liver Function 01/04/18 Range/Units 07:05 Total Bilirubin 0.6 (0.2-1.0) mg/dL AST 46 H (15-37) U/L ALT 29 (10-53) U/L Alkaline Phosphatase 119 H (45-117) U/L Albumin 3.0 L (3.4-5.0) g/dL - Imaging Impressions Chest X-Ray 01/04/18 06:13 CONCLUSION: 1. No acute cardiopulmonary abnormality is identified. There are background lung changes characteristic of emphysema. 2. Right rib fractures are again identified. Caprini VTE Risk Assessment Caprini VTE Risk Assessment: Moderate/High Risk (score >= 2) Caprini Risk Assessment Model: Point Value = 1 Point Value = 2 Point Value = 3 Point Value = 5 Age 41-60 Minor surgery BMI > 25 kg/m2 Swollen legs Varicose veins or History of unexplained or recurrent spontaneous Oral contraceptives or hormone replacement Sepsis (< 1 month) Serious lung disease, including pneumonia (< 1 month) Abnormal pulmonary function Acute myocardial infarction Congestive heart failure (< 1 month) History of inflammatory bowel disease Medical patient at bed rest Age 61-74 Arthroscopic surgery Major open surgery (> 45 min) Laparoscopic surgery (> 45 min) Malignancy Confined to bed (> 72 hours) Immobilizing plaster cast Central venous access Age >= 75 History of VTE Family history of VTE Factor V Leiden Prothrombin [id number] Lupus anticoagulant Anticardiolipin antibodies Elevated serum homocysteine Heparin-induced thrombocytopenia Other congenital or acquired thrombophilia Stroke (< 1 month) Elective arthroplasty Hip, pelvis, or leg fracture Acute spinal cord injury (< 1 month) Prophylaxis Regimen: Total Risk Factor Score Risk Level Prophylaxis Regimen 0-1 Low Early ambulation 2 Moderate Order ONE of the following: *Sequential Compression Device (SCD) *Heparin 5000 units SQ BID 3-4 Higher Order ONE of the following medications: *Heparin 5000 units SQ TID *Enoxaparin/Lovenox 40 mg SQ daily (WT < 150 kg, CrCl > 30 mL/min) *Enoxaparin/Lovenox 30 mg SQ daily (WT < 150 kg, CrCl > 10-29 mL/min) *Enoxaparin/Lovenox 30 mg SQ BID (WT < 150 kg, CrCl > 30 mL/min) AND/OR *Sequential Compression Device (SCD) 5 or more Highest Order ONE of the following medications: *Heparin 5000 units SQ TID (Preferred with Epidurals) *Enoxaparin/Lovenox 40 mg SQ daily (WT < 150 kg, CrCl > 30 mL/min) *Enoxaparin/Lovenox 30 mg SQ daily (WT < 150 kg, CrCl > 10-29 mL/min) *Enoxaparin/Lovenox 30 mg SQ BID (WT < 150 kg, CrCl > 30 mL/min) AND *Sequential Compression Device (SCD) Assessment and Plan - Plan A/P - COPD exacerbation- patient is on home oxygen. will start on IV steroids- start on neb treatment; scheduled and prn- keep on Oxygen to keep O2 sat > 90%. -hyponatremia start on IV NS and monitor the sodium level closely. -alcohol abuse/ withdrawal start on CIWA protocol- continue with vitamins. -hypokalemia; will replace and monitor. -DVT prophylaxis with SCD's -consult PT. Discussed Condition With: ER physician and the patient.
[2018-01-04] MEDS: Sod Chloride 0.9% Inj 1,000 ML IV.CONT SCH ×2 (12:20→21:48)
--- NOTE | 2018-01-04 12:37 | ECG ---
Date Performed: 01/04/2018 Time Performed: 07:35:03 PTAGE: 67 years EKG: SINUS TACHYCARDIA NONSPECIFIC ST & T-WAVE ABNORMALITY ABNORMAL RHYTHM ECG NO PREVIOUS TRACING DOCTOR: Mike Landaverde Interpretating Date/Time 01/04/2018 12:36:50
[2018-01-04] MEDS: MethylPREDNISolone Sod Succinate Inj 40 MG/ML Vial IV.PUSH SCH (16:09)
[2018-01-04] MEDS ORDERED: Sodium Chloride 0.9% 2 ML Flush PRN IV.FLUSH (19:03)
[2018-01-04] MEDS ORDERED: Melatonin 5 MG Tablet PO PRN (21:28)
[2018-01-04] MEDS: Sodium Chloride 0.9% 2 ML Flush BID IV.FLUSH SCH (21:37)
[2018-01-05] MEDS: MethylPREDNISolone Sod Succinate Inj 40 MG/ML Vial IV.PUSH SCH ×4 (01:12→23:13)
[2018-01-05] MEDS: Sod Chloride 0.9% Inj 1,000 ML IV.CONT SCH ×2 (08:09→19:21)
[2018-01-05] MEDS: Folic Acid 1 MG Tablet PO SCH (08:09)
[2018-01-05] MEDS: Multivitamin/Minerals Therapeutic Tablet PO SCH (08:10)
[2018-01-05] MEDS: Sodium Chloride 0.9% 2 ML Flush BID IV.FLUSH SCH ×2 (08:11→21:05)
[2018-01-05 08:49] LABS: Alanine Aminotransferase 27 U/L (10-53); Albumin 2.8 g/dL (3.4-5.0); Alkaline Phosphatase 100 U/L (45-117); Anion Gap 7 meq/L (5-15); Aspartate Aminotransferase 30 U/L (15-37); Blood Urea Nitrogen 5 mg/dL (7-18); Calcium 8.3 mg/dL (8.5-10.1); Carbon Dioxide 26.6 meq/L (21.0-32.0); Chloride 100 meq/L (98-107); Glomerular Filtration Rate 86 mL/min (>89); Glucose,Random 193 mg/dL (74-106); Sodium 134 meq/L (136-145); Total Protein 6.2 g/dL (6.4-8.2)
--- NOTE | 2018-01-05 15:22 | P.PNIM ---
Subjective Interval history: Breathing better however still with dry cough. Reports that she wears oxygen at night only. Does not use oxygen previously continuous. Would like Ativan to help her sleep tonight. Declined trial of Ambien as she states that does not work for her in the past. No complaint of chest pain or palpitations. Physical Exam Vital signs: Vital Signs 01/04/18 16:00 01/04/18 18:03 01/04/18 20:00 Temperature 98.8 F 98.3 F Pulse Rate 100 H 88 83 Respiratory Rate 20 16 19 Blood Pressure 125/66 134/86 Pulse Oximetry 96 97 99 01/04/18 21:02 01/04/18 23:45 01/04/18 23:46 Temperature Pulse Rate 88 95 H Respiratory Rate 18 19 Blood Pressure Pulse Oximetry 99 01/05/18 00:00 01/05/18 03:38 01/05/18 08:00 Temperature 98.3 F 97.9 F Pulse Rate 97 H 89 104 H Respiratory Rate 17 17 18 Blood Pressure 122/59 L 140/87 Pulse Oximetry 96 96 94 L 01/05/18 08:58 01/05/18 11:36 01/05/18 12:00 Temperature 98.4 F Pulse Rate 83 100 H 120 H Respiratory Rate 16 16 20 Blood Pressure 146/77 H Pulse Oximetry 97 97 Intake & Output 01/04/18 01/05/18 01/05/18 18:59 06:59 18:59 Intake Total 2490 / 2490 1000 / 1000 1000 / 1000 Balance 2490 / 2490 1000 / 1000 1000 / 1000 Weight 61.689 kg Intake: IV 1999 1000 / 1000 1000 / 1000 NS Inj 1,000 ML @ 100 mls/hr IV 1000 / 1000 1000 / 1000 .CONT .Q10H NIR Rx#:[id number] NS Inj 1,000 ML @ Wide Open IV. 1999 SIG BOLUS NIR Rx#:[id number] Oral 490 / 490 Other: # Voids 1 5 Date of Last Bowel Movement 01/04/18 # Bowel Movements 0 Weight On Admission 61.689 kg Narrative: GENERAL: This is a thin, frail, well-developed patient, in no apparent distress. CARDIOVASCULAR: Regular rate and rhythm RESPIRATORY: Diminished breath sounds bilaterally with few expiratory wheeze GASTROINTESTINAL: Abdomen soft, non-tender, nondistended. Normal active bowel sounds MUSCULOSKELETAL: Extremities without clubbing, cyanosis, or edema. NEURO: Alert & Oriented x4 to person, place, time, situation. Moves all ext x4 Results - Labs CBC & Chem 7: 01/04/18 07:05 01/05/18 07:31 Laboratory Results - last 24 hr 01/04/18 01/04/18 01/05/18 17:33 20:16 07:31 Sodium 133 L D 132 L 134 L Potassium 4.0 Chloride 100 D Carbon Dioxide 26.6 Anion Gap 7 BUN 5 L Creatinine 0.68 Estimated GFR 86 L Random Glucose 193 H Calcium 8.3 L Total Bilirubin 0.4 AST 30 ALT 27 Alkaline Phosphatase 100 Total Protein 6.2 L Albumin 2.8 L Assessment and Plan - Plan 1. Acute COPD exacerbation- patient is on home oxygen only at night. Continue IV steroids, DuoNeb treatment, supportive care, wean O2 as tolerated. Walk fit test to determine if patient will need oxygen continuous upon discharge to home. 2. hyponatremia likely to 2 history of chronic alcohol use Improved with normal saline and 3. alcohol abuse/ withdrawal start on CIWA protocol- continue with vitamins. patient counseled 4. -hypokalemia; will replace and monitor. 5. DVT prophylaxis with SCD's -consult PT to evaluate gait and balance.
[2018-01-05] MEDS: LORazepam 0.5 MG Tablet PO PRN (21:04)
[2018-01-06] MEDS: Sod Chloride 0.9% Inj 1,000 ML IV.CONT SCH (05:25)
[2018-01-06] MEDS: MethylPREDNISolone Sod Succinate Inj 40 MG/ML Vial IV.PUSH SCH ×2 (08:09→15:29)
[2018-01-06] MEDS: Multivitamin/Minerals Therapeutic Tablet PO SCH (08:14)
[2018-01-06] MEDS: Folic Acid 1 MG Tablet PO SCH (08:14)
[2018-01-06] MEDS: Sodium Chloride 0.9% 2 ML Flush BID IV.FLUSH SCH ×2 (09:00→20:55)
--- NOTE | 2018-01-06 09:45 | P.PNIM ---
Subjective Interval history: Reports she is having anxiety attacks reports that she still feels short of breath however has improved. Still with cough and congestion. Reports that she does not have a nebulizer machine at home and feels the nebulizers does help. Physical Exam Vital signs: Vital Signs 01/05/18 11:36 01/05/18 12:00 01/05/18 16:00 Temperature 98.4 F 98.2 F Pulse Rate 100 H 120 H 89 Respiratory Rate 16 20 22 Blood Pressure 146/77 H 161/75 H Pulse Oximetry 97 99 Pulse Oximetry [Exertion on Room Air] Pulse Oximetry [Resting on Room Air] 01/05/18 16:02 01/05/18 17:19 01/05/18 20:00 Temperature 98.2 F Pulse Rate 118 H 110 H Respiratory Rate 16 18 Blood Pressure 170/87 H Pulse Oximetry 94 L Pulse Oximetry [Exertion on Room Air] 91 L Pulse Oximetry [Resting on Room Air] 97 01/05/18 20:45 01/05/18 23:20 01/06/18 00:00 Temperature 97.6 F Pulse Rate 115 H 111 H 125 H Respiratory Rate 20 20 20 Blood Pressure 161/100 H Pulse Oximetry 97 96 Pulse Oximetry [Exertion on Room Air] Pulse Oximetry [Resting on Room Air] 01/06/18 04:00 01/06/18 08:00 01/06/18 08:26 Temperature 97.8 F 97.6 F Pulse Rate 135 H 121 H 128 H Respiratory Rate 20 18 20 Blood Pressure 153/77 H 180/102 H Pulse Oximetry 98 96 98 Pulse Oximetry [Exertion on Room Air] Pulse Oximetry [Resting on Room Air] Intake & Output 01/05/18 01/06/18 01/06/18 18:59 06:59 18:59 Intake Total 1999 1480 / 1480 Balance 1999 1480 / 1480 Intake: IV 1999 1000 / 1000 NS Inj 1,000 ML @ 100 mls/hr IV 1999 1000 / 1000 .CONT .Q10H NIR Rx#:[id number] Oral 480 / 480 Other: # Voids 2 Date of Last Bowel Movement 01/04/18 01/04/18 Narrative: GENERAL: This is a thin, frail, well-developed patient, in no apparent distress. CARDIOVASCULAR: Regular rate and rhythm RESPIRATORY: Diminished breath sounds bilaterally with few expiratory wheeze GASTROINTESTINAL: Abdomen soft, non-tender, nondistended. Normal active bowel sounds MUSCULOSKELETAL: Extremities without clubbing, cyanosis, or edema. NEURO: Alert & Oriented x4 to person, place, time, situation. Moves all ext x4 Results - Labs CBC & Chem 7: 01/04/18 07:05 01/05/18 07:31 Assessment and Plan - Plan 67-year-old white female with history of COPD admitted for 1. Acute COPD exacerbation- patient is on home oxygen only at night. Continue IV steroids and wean today, DuoNeb treatment, supportive care, wean O2 as tolerated. Walk fit test to determine if patient will need oxygen continuous upon discharge to home. Will arrange for nebulizer machine for home. 2. hyponatremia likely to 2 history of chronic alcohol use Improved with normal saline and 3. alcohol abuse/ withdrawal start on CIWA protocol- continue with vitamins. patient counseled 4. -hypokalemia; repleted 5. DVT prophylaxis with SCD's, add Lovenox. -consult PT to evaluate gait and balance. Discharge Planning: Home when clinically stable.
[2018-01-06] MEDS ORDERED: Fluconazole 100 MG Tablet PO ONE (11:56)
[2018-01-06] MEDS: LORazepam 0.5 MG Tablet PO PRN (21:01)
[2018-01-07] MEDS: MethylPREDNISolone Sod Succinate Inj 40 MG/ML Vial IV.PUSH SCH ×3 (00:34→17:26)
[2018-01-07] MEDS: Folic Acid 1 MG Tablet PO SCH (09:03)
[2018-01-07] MEDS: Multivitamin/Minerals Therapeutic Tablet PO SCH (09:03)
[2018-01-07] MEDS: Sodium Chloride 0.9% 2 ML Flush BID IV.FLUSH SCH ×2 (09:04→20:19)
--- NOTE | 2018-01-07 12:55 | P.PNIM ---
Subjective Interval history: Patient is still having coughing and some shortness of breath but improving. she would like to stay another day. She would like to have a nebulizer machine and neb medication for home. Physical Exam Vital signs: Vital Signs 01/06/18 16:00 01/06/18 16:09 01/06/18 20:00 Temperature 97.5 F L 97.7 F Pulse Rate 108 H 98 H 135 H Respiratory Rate 16 18 22 Blood Pressure 182/98 H 158/90 H Pulse Oximetry 95 94 L 01/06/18 21:11 01/07/18 00:00 01/07/18 01:06 Temperature 97.5 F L Pulse Rate 112 H 115 H 109 H Respiratory Rate 20 22 16 Blood Pressure 186/99 H Pulse Oximetry 96 94 L 01/07/18 04:00 01/07/18 04:03 01/07/18 07:44 Temperature 97.7 F Pulse Rate 108 H 107 H 108 H Respiratory Rate 22 16 16 Blood Pressure 167/102 H Pulse Oximetry 94 L 99 01/07/18 08:00 01/07/18 08:45 01/07/18 11:13 Temperature 98.0 F Pulse Rate 97 H 95 H Respiratory Rate 16 18 Blood Pressure 183/101 H 158/60 H Pulse Oximetry 96 01/07/18 12:00 Temperature 98.5 F Pulse Rate 115 H Respiratory Rate 16 Blood Pressure 153/91 H Pulse Oximetry 91 L Intake & Output 01/06/18 01/07/18 01/07/18 18:59 06:59 18:59 Intake Total 480 / 480 720 / 720 Balance 480 / 480 720 / 720 Intake: Oral 480 / 480 720 / 720 Other: # Voids 2 4 Date of Last Bowel Movement 01/04/18 01/04/18 # Bowel Movements 0 Narrative: GENERAL: This is a thin, frail, patient, in no apparent distress. CARDIOVASCULAR: Regular rate and rhythm RESPIRATORY: Diminished breath sounds bilaterally with few expiratory wheeze bilaterally GASTROINTESTINAL: Abdomen soft, non-tender, nondistended. Normal active bowel sounds MUSCULOSKELETAL: Extremities without clubbing, cyanosis, or edema. NEURO: Alert & Oriented x4 to person, place, time, situation. Moves all ext x4 Results - Labs CBC & Chem 7: 01/04/18 07:05 01/05/18 07:31 Assessment and Plan - Plan 67-year-old white female with history of COPD admitted for 1. Acute COPD exacerbation- patient is on home oxygen only at night. Continue IV steroids and transition to oral in am, DuoNeb treatment, supportive care, wean O2 as tolerated. Will arrange for nebulizer machine for home. DC planning for home in am 2. hyponatremia likely due to history of chronic alcohol use Improved with normal saline and 3. alcohol abuse/ withdrawal start on CIWA protocol- continue with vitamins. patient counseled no signs of WD 4. -hypokalemia; repleted 5. DVT prophylaxis with SCD's, add Lovenox. -consulted PT to evaluate gait and balance. Discharge Planning: Home when clinically stable. Likely can be DC to home in am
[2018-01-07] MEDS: LORazepam 0.5 MG Tablet PO PRN (20:18)
[2018-01-08] MEDS: MethylPREDNISolone Sod Succinate Inj 40 MG/ML Vial IV.PUSH SCH ×2 (00:19→08:35)
[2018-01-08] MEDS: Multivitamin/Minerals Therapeutic Tablet PO SCH (08:34)
[2018-01-08] MEDS: Folic Acid 1 MG Tablet PO SCH (08:35)
[2018-01-08] MEDS ORDERED: predniSONE 20 MG Tablet PO SCH (09:00)
[2018-01-08] MEDS: Sodium Chloride 0.9% 2 ML Flush BID IV.FLUSH SCH (09:06)
--- NOTE | 2018-01-08 11:51 | P.PN ---
Subjective Interval history: Patient doing well overnight. Patient is tolerating p.o., and voiding/stooling well patient is off of O2 and reports improved shortness of breath since admission. No events per RN. Physical Exam Vital signs: Vital Signs 01/07/18 12:00 01/07/18 15:42 01/07/18 16:00 Temperature 98.5 F 98.6 F Pulse Rate 115 H 108 H 91 H Respiratory Rate 16 20 16 Blood Pressure 153/91 H 169/93 H Pulse Oximetry 91 L 97 01/07/18 20:00 01/07/18 20:04 01/07/18 23:31 Temperature 97.6 F Pulse Rate 101 H 86 105 H Respiratory Rate 22 18 Blood Pressure 150/86 H Pulse Oximetry 97 96 01/08/18 00:00 01/08/18 03:23 01/08/18 04:00 Temperature 98.8 F 98 F Pulse Rate 95 H 121 H 113 H Respiratory Rate 18 22 20 Blood Pressure 145/75 H 144/93 H Pulse Oximetry 96 94 L 01/08/18 07:51 01/08/18 09:08 01/08/18 09:18 Temperature 97.3 F L Pulse Rate 86 83 Respiratory Rate 16 18 Blood Pressure 167/82 H Pulse Oximetry 96 96 96 Intake & Output 01/07/18 01/08/18 01/08/18 18:59 06:59 18:59 Intake Total 720 / 720 Balance 720 / 720 Intake: Oral 720 / 720 Other: # Voids 5 3 Date of Last Bowel Movement 01/06/18 01/06/18 01/06/18 Narrative: GENERAL: This is a thin, female, in no apparent distress, sitting comfortably in bed CARDIOVASCULAR: Regular rate and rhythm RESPIRATORY: RRR, S1 and S2, no M/R/G GASTROINTESTINAL: Abdomen soft, non-tender, nondistended. Normal active bowel sounds MUSCULOSKELETAL: Extremities without clubbing, cyanosis, or edema. NEURO: Alert & Oriented x4 to person, place, time, situation. No focal deficits. Results - Labs CBC & Chem 7: 01/04/18 07:05 01/05/18 07:31 Assessment and Plan - Assessment (1) COPD exacerbation Code(s): J44.1 - Chronic obstructive pulmonary disease with (acute) exacerbation Status: Acute (2) Hypoxia Code(s): R09.02 - Hypoxemia Status: Resolved (3) Hyponatremia Code(s): E87.1 - Hypo-osmolality and hyponatremia Status: Resolved - Plan 67-year-old CF with PMHx of COPD admitted for acute COPD exacerbation, HD #5 1. Acute COPD exacerbation- patient is on home oxygen only at night. Continue DuoNeb treatment Q4, prednisone 20mg BID Supportive care Weaned off of O2 this AM Will arrange for nebulizer machine for home 2. Hyponatremia Due to history of chronic alcohol use Na 134 on 01/05 3. Alcohol abuse/Withdrawal CIWA protocol Cont. MV, FA and thiamine Counseled on cessation 4. Hypokalemia, resolved K 4 on 01/05 5. Parkinson's Continue Cogentin 6. Anxiety/Depression Continue Paxil 7. HTN Cont. Prazosin 8. DVT prophylaxis: SCD's, Lovenox. 9. Dispo: Stable for discharge today Discussed Condition With: Patient, RN, bilingual patient support caseworker
[2018-01-08 12:52] VITALS: BP 167/94; PULSE 101; RESP 20; TEMP 96.2; O2SAT 93
--- NOTE | 2018-01-08 13:45 | P.DS ---
Date of admission: 01/04/18 11:56 Primary care physician: No Primary Care Physician Brief History from admission: This is a 67 y/o CF with PMHx of COPD- oxygen dependent at night also with a hx of alcohol abuse, who presented to ER with shortness of breath x2 days that was progressively worsening. Patient denied productive cough, fever, and chills. Patient admits that she drinks a few times a week and that her last drink was yesterday. DS: Diagnosis - Discharge Diagnosis (1) COPD exacerbation Status: Acute (2) Hypoxia Status: Resolved (3) Hyponatremia Status: Resolved DS: Medications - Discharge Medications Prescriptions: albuterol sulfate 1.25 mg NEB Q2HR NEB PRN 10 Days #20 ml PRN Reason: Shortness Of Breath albuterol sulfate 2.5 mg INH Q6HR NEB #1 amp prednisone 20 mg PO BID 3 Days #6 tab DS: Summary Hospital Course: This is a 67-year-old CF with PMHx of COPD admitted for acute COPD exacerbation , patient required oxygen via nasal cannula on admission. Patient was managed with DuoNebs Q4hrs and started on Prednisone. Patient was discharged once she was weaned off of O2. Patient was discharged with a Rx for Albuterol and was given a Nebulizer machine for home use. Patient also had hyponatremia due to history of chronic alcohol use, Na 134 on 01/05. Patient was placed on CIWA protocol with no signs of withdrawal. Patient was discharged with Prednisone 20mg 2 tabs PO QD, #6, no refills. F/U with PCP in 1wk. - Time Spent with Patient Total time spent providing and/or coordinating discharge services: Greater than 30 minutes - Quality: VTE Deep Vein Thrombosis/Pulmonary Embolism Present on Admission: No Exam Vital signs: Vital Signs 01/07/18 15:42 01/07/18 16:00 01/07/18 20:00 Temperature 98.6 F 97.6 F Pulse Rate 108 H 91 H 101 H Respiratory Rate 20 16 22 Blood Pressure 169/93 H 150/86 H Pulse Oximetry 97 97 01/07/18 20:04 01/07/18 23:31 01/08/18 00:00 Temperature 98.8 F Pulse Rate 86 105 H 95 H Respiratory Rate 18 18 Blood Pressure 145/75 H Pulse Oximetry 96 96 01/08/18 03:23 01/08/18 04:00 01/08/18 07:51 Temperature 98 F Pulse Rate 121 H 113 H 86 Respiratory Rate 22 20 16 Blood Pressure 144/93 H Pulse Oximetry 94 L 96 01/08/18 09:08 01/08/18 09:18 01/08/18 11:55 Temperature 97.3 F L Pulse Rate 83 108 H Respiratory Rate 18 16 Blood Pressure 167/82 H Pulse Oximetry 96 96 01/08/18 12:50 Temperature 96.2 F L Pulse Rate 101 H Respiratory Rate 20 Blood Pressure 167/94 H Pulse Oximetry 93 L Intake & Output 01/07/18 01/08/18 01/08/18 18:59 06:59 18:59 Intake Total 720 / 720 Balance 720 / 720 Intake: Oral 720 / 720 Other: # Voids 5 3 Date of Last Bowel Movement 01/06/18 01/06/18 01/06/18 Narrative: GENERAL: This is a thin, female, in no apparent distress, sitting comfortably in bed CARDIOVASCULAR: Regular rate and rhythm RESPIRATORY: Lungs CTAx2, no wheezing GASTROINTESTINAL: Abdomen soft, non-tender, nondistended. Normal active bowel sounds MUSCULOSKELETAL: Extremities without clubbing, cyanosis, or edema. NEURO: Alert & Oriented x4 to person, place, time, situation. No focal deficits. Results Procedures completed during hospitalization: n/a - Impressions ITS Impressions Chest X-Ray 01/04/18 06:13 CONCLUSION: 1. No acute cardiopulmonary abnormality is identified. There are background lung changes characteristic of emphysema. 2. Right rib fractures are again identified. Discharge Plan - Discharge Disposition Patient Disposition: 01 Discharge Home - Discharge Condition Condition: Good - Discharge Order Discharge Orders: Discharge Order (Routine); Ordered 01/08/18 Ordered By: Maribel Hay - Discharge Details Anticipated Discharge Date: 01/08/18 - Physicians Team Primary Care Provider: Primary Care Paigei,No Attending Provider: Maribel Hay Other Providers: [employer],Insurance
== END 2018-01-08 17:54 | disposition home or self-care (01) ==
LOC: NEPE 05:38 → NEDA 05:38 → NEPFCDU 12:08 → N06 15:41
PROVIDERS: ADMIT Family Medicine; ATTEND Family Medicine